=== PATIENT | female | born 1945 | race Caucasian/White ===

== ENCOUNTER → 2016-08-14 | Outpatient (CLI) | payer MEDICARE ==
--- NOTE | 2016-08-14 11:54 | MM ---
Reason for exam: history of breast cancer, mastectomy. Last mammogram was performed 1 year ago. History: Patient is postmenopausal, has history of breast cancer at age 56, and has history of other cancer at age 42. Family history of breast cancer in aunt. Excisional biopsy of the right breast, 2012. Malignant mastectomy of the left breast, October 02, 2001. Silicone gel implant in the left breast, 2001. Took antineoplastic for 5 years. Physical Findings: Nurse did not find any significant physical abnormalities on exam. MG 3D Diag Mammo W/Cad RT CC and MLO view(s) were taken of the right breast. Prior study comparison: August 11, 2015, right breast MG 3d diag mammo w/cad RT. August 04, 2014, right breast MG diagnostic mammo RT w CAD. The breast tissue is almost entirely fat. Previous mammotome biopsy in the right breast. No significant new findings when compared with previous films. These results were verbally communicated with the patient and result sheet given to the patient on 08/14/16. ASSESSMENT: Benign, BI-RAD 2 RECOMMENDATION: Follow-up diagnostic mammogram of the right breast in 1 year.
== END | disposition home or self-care (01) ==
LOC: RADMAMWWP 10:53
PROVIDERS: ATTEND Family Medicine
DX: Z08 Encounter for follow-up examination after completed treatment for malignant neoplasm (principal); Z85.3 Personal history of malignant neoplasm of breast
CPT/HCPCS: G0206; G0279

== ENCOUNTER → 2017-01-27 | Outpatient (CLI) | payer MEDICARE ==
--- NOTE | 2017-01-27 16:55 | US ---
EXAMINATION TYPE: US thyroid st tissue head/neck DATE OF EXAM: 01/27/2017 COMPARISON: 11/23/2015 CLINICAL HISTORY: E04.2 Nontoxic Multinodular Goiter. follow up exam GLAND SIZE: Right Lobe: 3.9 x 1.2 x 1.9 cm Overall Parenchyma: heterogenous Left Lobe: 4.5 x 1.4 x 1.8 cm Overall Parenchyma: heterogeneous Isthmus Thickness: 0.5 cm NODULES RIGHT: # of nodules measured on right: 0 LEFT: # of nodules measured on left: 0 ISTHMUS: # of nodules measured in the isthmus: 1 1. 0.6 X 0.5 x 0.4 cm hypoechoic cystic nodule at the right portion of isthmus with well-defined ma rgins. This nodule is wider than tall and shows no intranodular vascularity. Prior size: 0.7 x 0.4 x 0.5 cm Bilateral neck scanned, no evidence of lymphadenopathy. Heterogeneous lobes seen today with multiple subcentimeter areas, measured largest on isthmus IMPRESSION: There is some heterogeneity in the thyroid gland without a dominant mass there is a small cyst in the isthmus. No adverse change compared to old exam.
== END | disposition home or self-care (01) ==
LOC: RADUSWWP 16:13
PROVIDERS: ATTEND Internal Medicine Endocrinology, Diabetes & Metabolism
DX: E04.1 Nontoxic single thyroid nodule (principal)
CPT/HCPCS: 76536

== ENCOUNTER → 2017-03-27 | Outpatient (CLI) | payer MEDICARE ==
--- NOTE | 2017-03-27 11:22 | US ---
EXAMINATION TYPE: US kidneys/renal and bladder DATE OF EXAM: 03/27/2017 COMPARISON: NONE CLINICAL HISTORY: R94.4 Abnormal kidney function study. EXAM MEASUREMENTS: Right Kidney: 9.4 x 4.2 x 4.9 cm Left Kidney: 11.4 x 5.0 x 4.8 cm Post Void Residual Volume: 14.1 mL Right Kidney: hyperechoic (calcified) parallel vessel hardin noted mid lateral on image #[id number] Left Kidney: inferior pole complex cyst vs. clustered cysts = 2.3 x 2.2 x 2.5cm Bladder: wnl Bilateral Jets seen: Yes Normal Post Void Residual: Yes Bladder appears within normal limits. Right kidney appears unremarkable. Technologist notes a calcifi ed arterial vessel near right kidney. Cystic lesion lower pole level left kidney favor single 2.5 cm cyst with thin septations, 2 adjacent simple cysts felt less likely but not excluded. IMPRESSION: No hydronephrosis is evident bilaterally. Bosniak type II lesion lower pole level left kidney inciden tally noted.
== END ==
LOC: RADUSWWP 10:06
PROVIDERS: ATTEND Family Medicine
DX: R94.4 Abnormal results of kidney function studies (principal)
CPT/HCPCS: 76770

== ENCOUNTER → 2017-09-01 | Outpatient (CLI) | payer MEDICARE ==
--- NOTE | 2017-09-01 11:45 | MM ---
Reason for exam: additional evaluation requested from prior study. Last mammogram was performed 1 year and 1 month ago. History: Patient is postmenopausal, has history of breast cancer at age 56, and has history of other cancer at age 42. Family history of breast cancer in aunt. Excisional biopsy of the right breast, 2012. Malignant mastectomy of the left breast, October 02, 2001. Silicone gel implant in the left breast, 2001. Took antineoplastic for 5 years. Physical Findings: Nurse did not find any significant physical abnormalities on exam. MG Diagnostic Mammo RT w CAD CC and MLO view(s) were taken of the right breast. Prior study comparison: August 14, 2016, right breast MG 3d diag mammo w/cad RT. August 11, 2015, right breast MG 3d diag mammo w/cad RT. There are scattered fibroglandular densities. Previous mammotome biopsy in the right breast. There is chronic nodularity in the right breast. No significant new findings when compared with previous films. These results were verbally communicated with the patient and result sheet given to the patient on 09/01/17. ASSESSMENT: Benign, BI-RAD 2 RECOMMENDATION: Routine screening mammogram of the right breast in 1 year.
== END | disposition home or self-care (01) ==
LOC: RADMAMWWP 10:56
PROVIDERS: ATTEND Family Medicine
DX: Z12.31 Encounter for screening mammogram for malignant neoplasm of breast (principal); Z85.3 Personal history of malignant neoplasm of breast
CPT/HCPCS: 77065

== ENCOUNTER → 2017-10-24 | Outpatient (CLI) | payer MEDICARE ==
[2017-10-24 13:33] LABS: HCT 38.1 % (34.0-46.0); HGB 12.9 gm/dL (11.4-16.0); MCH 30.4 pg (25.0-35.0); MCHC 33.9 g/dL (31.0-37.0); MCV 89.6 fL (80.0-100.0); Mean Platelet Volume 8.2; Platelet Count 233 k/uL (150-450); RBC 4.25 m/uL (3.80-5.40); WBC 7.2 k/uL (3.8-10.6)
[2017-10-24 13:35] LABS: Appearance,Urine Clear (Clear); Bilirubin,Urine Negative (Negative); Blood,Urine Negative (Negative); Color,Urine Light Yellow; Glucose,Urine (UA) Negative (Negative); Hyaline Casts,Urine 1 /lpf (0-2); Ketones,Urine Negative (Negative); Leukocyte Esterase,Urine Small (Negative); Mucus,Urine Rare /hpf; Nitrite,Urine Negative (Negative); PH, Urine 5.5 (5.0-8.0); Protein,Urine Negative (Negative); RBC,Urine <1 /hpf (0-5); Specific Gravity,Urine 1.007 (1.001-1.035); Squamous Epithelial Cell,Urine 1 /hpf (0-4); Urobilinogen,Urine <2.0 mg/dL (<2.0); WBC,Urine 1 /hpf (0-5)
[2017-10-24 13:48] LABS: Albumin 3.8 g/dL (3.5-5.0); Calcium 9.3 mg/dL (8.4-10.2); Phosphorus 2.7 mg/dL (2.5-4.5); Potassium 3.6 mmol/L (3.5-5.1); Total Bilirubin 0.4 mg/dL (0.2-1.3)
== END | disposition home or self-care (01) ==
LOC: LABWHC1 13:17
PROVIDERS: ATTEND Internal Medicine Nephrology
DX: D64.9 Anemia, unspecified (principal); E83.39 Other disorders of phosphorus metabolism; N39.0 Urinary tract infection, site not specified
CPT/HCPCS: 36415; 80053; 81001; 84100; 85027

== ENCOUNTER → 2018-09-08 | Outpatient (CLI) | payer MEDICARE ==
--- NOTE | 2018-09-08 09:52 | MM ---
Reason for exam: additional evaluation requested from prior study. Last mammogram was performed 1 year ago. History: Patient is postmenopausal, has history of breast cancer at age 56, and has history of other cancer at age 42. Family history of breast cancer in aunt. Excisional biopsy of the right breast, 2012. Malignant mastectomy of the left breast, October 02, 2001. Silicone gel implant in the left breast, 2001. Took antineoplastic for 5 years. Physical Findings: Nurse did not find any significant physical abnormalities on exam. MG Diagnostic Mammo RT w CAD CC and MLO view(s) were taken of the right breast. Prior study comparison: September 01, 2017, right breast MG diagnostic mammo RT w CAD. August 14, 2016, right breast MG 3d diag mammo w/cad RT. There are scattered fibroglandular densities. Previous mammotome biopsy in the right breast. There is no discrete abnormality. These results were verbally communicated with the patient and result sheet given to the patient on 09/08/18. ASSESSMENT: Benign, BI-RAD 2 RECOMMENDATION: Follow-up diagnostic mammogram of the right breast in 1 year.
== END | disposition home or self-care (01) ==
LOC: RADMAMWWP 08:47
PROVIDERS: ATTEND Family Medicine
DX: Z08 Encounter for follow-up examination after completed treatment for malignant neoplasm (principal); Z85.3 Personal history of malignant neoplasm of breast
CPT/HCPCS: 77065

== ENCOUNTER → 2018-10-27 | Outpatient (CLI) | payer MEDICARE ==
--- NOTE | 2018-10-28 22:37 | BD ---
EXAMINATION TYPE: Axial Bone Density DATE OF EXAM: 10/27/2018 COMPARISON: 2013 CLINICAL HISTORY: screening Height: 5'1 Weight: 200 FRAX RISK QUESTIONS: adult fx rt forearm as an adult Secondary Osteoporosis: rt forearm as an adult RISK FACTORS HISTORY OF: Active: n Postmenopausal woman: y MEDICATIONS: Additional Medications: lisinopril, paroxetine, trazodone, hydrochlorothiazide Additional History: breast cancer 22 years ago, radiation EXAM MEASUREMENTS: Bone mineral densitometry was performed using the [employer] System. Bone mineral density as measured about the Lumbar spine is: ----- L1-L4(G/cm2): 1.030 T Score Values are as follows: ----- L2: -2.0 ----- L3: -0.6 ----- L4: -1.1 ----- L1-L4: -1.3 Bone mineral density has: Increased 4.9% since study of: 09/27/2013 Bone mineral density about the R hip (g/cm2): 0.934 Bone mineral density about the L hip (g/cm2): 0.949 T Score values are as follows: -----R Neck: -0.8 -----L Neck: -0.6 -----R Total: -1.0 -----L Total: -0.8 Bone mineral density has: Increased 0.6% since study of: 09/27/2013 IMPRESSION: Osteopenia (T Score between -2.5 and -1). There is slightly increased risk of fracture and the patient may be considered for treatment. Re-Screen 2-5 years. NOTE: T-SCORE=SD OF THE YOUNG ADULT MEAN.
== END | disposition home or self-care (01) ==
LOC: RADBDWWP 10:14
PROVIDERS: ATTEND Family Medicine
DX: Z13.820 Encounter for screening for osteoporosis (principal); M85.88 Other specified disorders of bone density and structure, other site
CPT/HCPCS: 77080

== ENCOUNTER → 2019-01-22 | Outpatient (CLI) | payer MEDICARE ==
--- NOTE | 2019-01-22 13:55 | US ---
EXAMINATION TYPE: US thyroid st tissue head/neck DATE OF EXAM: 01/22/2019 COMPARISON: NONE CLINICAL HISTORY: E04.2 NONTOXIC MULTINODULAR GOITER. GLAND SIZE: Right Lobe: 3.7 x 1.4 x 1.0 cm Overall Parenchyma: heterogenous Left Lobe: 3.5 x 0.9 x 1.3 cm Overall Parenchyma: heterogeneous Isthmus Thickness: 0.5 cm NODULES RIGHT: # of nodules measured on right: 0 LEFT: # of nodules measured on left: 0 ISTHMUS: # of nodules measured in the isthmus: 0 Bilateral neck scanned, no evidence of lymphadenopathy. Patient has a very large, very thick neck. Technically difficult, limited study. Subcentimeter cysts noted. IMPRESSION: 1. Bilateral subcentimeter nodules. No enlarged nodules are recorded.
[2019-01-22 14:46] LABS: T4, Free (Free Thyroxine) 0.87 ng/dL (0.78-2.19)
== END | disposition home or self-care (01) ==
LOC: RADUSWWP 12:56
PROVIDERS: ATTEND Internal Medicine Endocrinology, Diabetes & Metabolism
DX: E04.2 Nontoxic multinodular goiter (principal)
CPT/HCPCS: 76536; 84439; 84443

== ENCOUNTER 2019-01-27 19:18 | Inpatient (IN) | payer MEDICARE ==
[2019-01-27 20:30] LABS: Amphetamine Screen,Urine Not Detected (NotDetected); Barbiturate Screen,Urine Not Detected (NotDetected); Benzodiazepines Screen,Urine Not Detected (NotDetected); Cocaine Screen,Urine Not Detected (NotDetected); Methadone Screen, Urine Not Detected (NotDetected); Opiate Screen,Urine Not Detected (NotDetected); Phencyclidine Screen,Urine Not Detected (NotDetected); Tricyclic Antidepressant,Urine Not Detected (NotDetected); Urn Cannabinoid Scrn Not Detected (NotDetected)
[2019-01-27 20:31] LABS: Oxycodone Screen, Urine Not Detected (NotDetected)
[2019-01-27 20:59] LABS: Appearance,Urine Clear (Clear); Bacteria,Urine Rare /hpf; Bilirubin,Urine Negative (Negative); Blood,Urine Negative (Negative); Color,Urine Yellow; Glucose,Urine (UA) Negative (Negative); Hyaline Casts,Urine 4 /lpf (0-2); Ketones,Urine Negative (Negative); Leukocyte Esterase,Urine Small (Negative); Mucus,Urine Rare /hpf; Nitrite,Urine Negative (Negative); Protein,Urine Negative (Negative); RBC,Urine 1 /hpf (0-5); Specific Gravity,Urine 1.012 (1.001-1.035); Squamous Epithelial Cell,Urine 1 /hpf (0-4); Urobilinogen,Urine <2.0 mg/dL (<2.0); WBC,Urine 3 /hpf (0-5)
--- NOTE | 2019-01-27 21:28 | ED ---
General Adult HPI - General Chief complaint: Psychiatric Symptoms Stated complaint: Mental Health Time Seen by Provider: 01/27/19 19:36 Source: patient, RN notes reviewed, old records reviewed Limitations: altered mental status - History of Present Illness Initial comments: 73-year-old female patient with past medical history of developmental delay, psychiatric disorder presents to ED for what daughter believes is a manic episode for approximately 2 weeks. Patient reports that she has had flight of ideas, depression and suicidal ideations today. Denies any actions to hurt he rself or hurt any other people, that the plan hurt himself. Patient is not currently established with a psychiatrist, was pretty established with [facility], however they believe that she did not need any further therapy so her primary care provider has been prescribing Paxil and trazodone. Daughter reports the patient last had an episode like this proximal 9 years ago. She states that symptoms are identical. Systemic: Pt denies fatigue, fever/chills, rash. Pt denies weakness, night sweats, weight loss. Neuro: Pt denies headache, visual disturbances, syncope or pre-syncope. HEENT: Pt denies ocular discharge or irritation, otalgia, rhinorrhea, pharyngitis or notable lymphadenopathy. Cardiopulmonary: Pt denies chest pain, SOB, heart palpitations, dyspnea on exertion. Abdominal/GI: Pt denies abdominal pain, n/v/d. : Pt denies dysuria, burning w/ urination, frequency/urgency. Denies new onset urinary or bowel incontinence. MSK: Pt denies myalgia, loss of strength or function in extremities. Neuro: Pt denies new onset weakness, paresthesias. - Related Data Home Medications Medication Instructions Recorded Confirmed Aspirin EC [Ecotrin Low Dose] 81 mg PO DAILY 01/27/19 01/27/19 Calcium Carbonate [Calcium] 600 mg PO DAILY 01/27/19 01/27/19 Garlic 1 tab PO DAILY 01/27/19 01/27/19 Hydrochlorothiazide 25 mg PO DAILY 01/27/19 01/27/19 Lisinopril [Zestril] 40 mg PO DAILY 01/27/19 01/27/19 Jasper-3 Fatty Acids/Fish Oil [Fish 1 cap PO DAILY 01/27/19 01/27/19 Oil 1,000 mg Softgel] PARoxetine HCL 30 mg PO DAILY 01/27/19 01/27/19 Pravastatin Sodium [Pravachol] 10 mg PO DAILY 01/27/19 01/27/19 traZODone HCL 100 mg PO HS 01/27/19 01/27/19 Allergies Allergy/AdvReac Type Severity Reaction Status Date / Time No Known Allergies Allergy Verified 01/27/19 20:09 Review of Systems ROS Statement: Those systems with pertinent positive or pertinent negative responses have been documented in the HPI. ROS Other: All systems not noted in ROS Statement are negative. Past Medical History Past Medical History: Hyperlipidemia, Hypertension Additional Past Medical History / Comment(s): Psychological hx Past Surgical History: Hysterectomy Additional Past Surgical History / Comment(s): Masectomy left side Past Psychological History: Anxiety, Bipolar, Panic Disorder Smoking Status: Never smoker Past Alcohol Use History: None Reported Past Drug Use History: None Reported General Exam - General Exam Comments Initial Comments: Constitutional: NAD, AOX3, Pt has pleasant affect. HEENT: NC/AT, trachea midline, neck supple, no lymphadenopathy. Posterior pharynx non erythematous, without exudates. External ears appear normal, without discharge. Mucous membranes moist. Eyes PERRLA, EOM intact. There is no scleral icterus. No pallor noted. Cardiopulmonary: RRR, no murmurs, rubs or gallops, no JVD noted. Lungs CTAB in anterior and posterior vides. No peripheral edema. Abdominal exam: Abdomen soft and non-distended. Abdomen non-tender to palpation in all 4 quadrants. Bowel sounds active in LLQ. No hepatosplenomegaly. No ecchymosis Neuro: CN II-XII grossly intact. No nuchal rigidity. No raccon eyes, no oshea sign, no hemotympanum. No cervical spinal tenderness. MSK: No posterior calf tenderness bilaterally, homans sign negative bilaterally. Posterior tibialis and radial pulse +2 bilaterally. Sensation intact in upper and lower extremities. Full active ROM in upper and lower extremities, 5/5 stregnth. Limitations: altered mental status Course Vital Signs 01/27/19 19:31 Temperature 97.6 F Pulse Rate 98 Respiratory 17 Rate Blood Pressure 154/95 O2 Sat by Pulse 97 Oximetry Medical Decision Making - Medical Decision Making Patient evaluated by EPS and recommended for admission. Patient admitted to this facility. Case discussed with Dr. Cedeno. - Lab Data Lab Results 01/27/19 01/27/19 Range/Units 20:05 20:05 Urine Color Yellow Urine Appearance Clear (Clear) Urine pH 7.0 (5.0-8.0) Ur Specific Dewitt 1.012 (1.001-1.035) Urine Protein Negative (Negative) Urine Glucose (UA) Negative (Negative) Urine Ketones Negative (Negative) Urine Blood Negative (Negative) Urine Nitrite Negative (Negative) Urine Bilirubin Negative (Negative) Urine Urobilinogen <2.0 (<2.0) mg/dL Ur Leukocyte Esterase Small H (Negative) Urine RBC 1 (0-5) /hpf Urine WBC 3 (0-5) /hpf Ur Squamous Epith Cells 1 (0-4) /hpf Urine Bacteria Rare H (None) /hpf Hyaline Casts 4 H (0-2) /lpf Urine Mucus Rare H (None) /hpf Urine Opiates Screen Not Detected (NotDetected) Ur Oxycodone Screen Not Detected (NotDetected) Urine Methadone Screen Not Detected (NotDetected) Ur Propoxyphene Screen Not Detected (NotDetected) Ur Barbiturates Screen Not Detected (NotDetected) U Tricyclic Antidepress Not Detected (NotDetected) Ur Phencyclidine Scrn Not Detected (NotDetected) Ur Amphetamines Screen Not Detected (NotDetected) U Methamphetamines Scrn Not Detected (NotDetected) U Benzodiazepines Scrn Not Detected (NotDetected) Urine Cocaine Screen Not Detected (NotDetected) U Marijuana (THC) Screen Not Detected (NotDetected) Disposition Clinical Impression: Depression, Suicidal ideation Disposition: ADMITTED IP TO THIS [facility] Condition: Serious Is patient prescribed a controlled substance at d/c from ED?: No
[2019-01-27] MEDS ORDERED: ZIPRASIDONE 20 MG VIAL IM PRN (21:53)
[2019-01-27] MEDS ORDERED: MAG HYDROX/AL HYDROX/SIMETH 30 ML CUP PO PRN (21:53)
[2019-01-27] MEDS ORDERED: MAGNESIUM HYDROXIDE 2,400 MG/10 ML CUP PO PRN (21:53)
[2019-01-27] MEDS ORDERED: LORazepam 2 MG/ML INJ IM PRN (21:58)
[2019-01-27] MEDS: traZODone HCL 100 MG TAB PO SCH (22:30)
[2019-01-28 01:01] VITALS: BMI 36.3
[2019-01-28 07:59] LABS: Basophils % (A) 1 %; Eosinophils # (A) 0.3 k/uL (0-0.7); Eosinophils % (A) 5 %; HCT 38.6 % (34.0-46.0); HGB 12.1 gm/dL (11.4-16.0); Lymphocytes # (A) 1.3 k/uL (1.0-4.8); Lymphocytes % (A) 24 %; MCH 29.4 pg (25.0-35.0); MCHC 31.3 g/dL (31.0-37.0); MCV 93.8 fL (80.0-100.0); Mean Platelet Volume 7.9; Monocytes # (A) 0.4 k/uL (0-1.0); Monocytes % (A) 7 %; Neutrophils # (A) 3.3 k/uL (1.3-7.7); Neutrophils % (A) 60 %; Platelet Count 187 k/uL (150-450); RBC 4.11 m/uL (3.80-5.40); RDW 14.2 % (11.5-15.5); WBC 5.4 k/uL (3.8-10.6)
[2019-01-28 08:11] LABS: Albumin 3.6 g/dL (3.5-5.0); Calcium 9.9 mg/dL (8.4-10.2); Potassium 4.2 mmol/L (3.5-5.1); Total Bilirubin 0.4 mg/dL (0.2-1.3); Total Protein 6.5 g/dL (6.3-8.2)
[2019-01-28] MEDS ORDERED: NON-FORMULARY DRUG (Garlic [Garlic] 1 TAB) PO SCH (09:00)
[2019-01-28] MEDS ORDERED: NON-FORMULARY DRUG (Omega-3 Fatty Acids/Fish Oil [Fish Oil 1,000 Mg Softgel] 1 CAP) PO SCH (09:00)
[2019-01-28] MEDS: LISINOPRIL 20 MG TAB PO SCH (09:05)
[2019-01-28] MEDS: CALCIUM CARBONATE 500 MG CHEWABLE PO SCH (09:05)
[2019-01-28] MEDS: PARoxetine 10 MG TAB PO SCH (09:05)
[2019-01-28] MEDS: PRAVASTATIN SODIUM 20 MG TAB PO SCH (09:06)
[2019-01-28] MEDS: ASPIRIN 81 MG PO SCH (09:07)
[2019-01-28] MEDS: HYDROCHLOROTHIAZIDE 25 MG TAB PO SCH (09:07)
--- NOTE | 2019-01-28 14:50 | P.CON ---
Consult Note - . Assessment/Plan:: Reason for consultation medical management History of present illness This is a very pleasant 73-year-old female who is seen on the psychiatric unit for her H&P and for medical management. Patient the time examination is complaining of back pain which is going on for the past few months. When she is complaining of more bilateral flank pain. She otherwise does not complain of any chest pain or racing heart, no cough no shortness breath, no fever no chills, no headache, loss of vision or blurry vision, no abdominal pain, nausea vomiting, or diarrhea constipation, no tingling numbness on his extremities, no itch no rash. She otherwise does not complain of any urinary problems. 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 Drug abuse Review of systems All systems reviewed review is systems negative except for what they're were discussed about HPI Physical exam On exam, alert and oriented x3. She is having flight of ideas at the time of conversation jumping from one topic to another HEENT: Conjunctivae normal. eyes normal. NECK: No JVD. No thyroid enlargement. No LNs CARDIOVASCULAR: S1, S2 muffled. No murmur RESPIRATION: Breath sounds diminished in the bases. No rhonchi or crackles. No bronchial breathing. ABDOMEN: Soft, nontender but complaining of bilateral flank tenderness which he says is chronic for. No guarding. no masses palpable. No ascites, No hepatosplenomegaly.Bowel sounds heard. LEGS: No edema. no swelling NERVOUS SYSTEM: Cranial N 2-12 grossly normal. Moves all 4 limbs. No focal deficits. No sensory deficit. No signs of cerebellar dysfucntion. Skin: no ulcer no rash Joints: No active swelling. No inflammation. Lymphatic system. No LN neck axilla or groin. Impression - Bilateral flank pain probably [place] skeleton we'll rule out UTI - Patient currently admitted to the psych facility for suicidal ideation and depression - History of bipolar disorder - Hypertension - Hyperlipidemia Plan - The patient is admitted to psychiatric unit - We will order for UA to rule out UTI. The pain looks muscular skeletal in nature as she's been having this for few months at least she says. - We'll continue Tylenol when necessary for pain - We'll continue rest of the medications - Further care as per the psychiatric team - We'll continue to follow along with you - Please call us back if the UA results are positive so that the patient can be put on antibiotics
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
[2019-01-28 19:00] LABS: Hemoglobin A1C 5.8 % (4.0-6.0)
[2019-01-28] MEDS: traZODone HCL 100 MG TAB PO SCH (21:58)
[2019-01-29] MEDS: PARoxetine 10 MG TAB PO SCH (09:08)
[2019-01-29] MEDS: PRAVASTATIN SODIUM 20 MG TAB PO SCH (09:08)
[2019-01-29] MEDS: LISINOPRIL 20 MG TAB PO SCH (09:08)
[2019-01-29] MEDS: HYDROCHLOROTHIAZIDE 25 MG TAB PO SCH (09:08)
[2019-01-29] MEDS: ASPIRIN 81 MG PO SCH (09:08)
[2019-01-29] MEDS: CALCIUM CARBONATE 500 MG CHEWABLE PO SCH (09:08)
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
[2019-01-29] MEDS: LORazepam 1 MG TAB PO PRN (16:25)
[2019-01-29] MEDS: QUEtiapine 50 MG TAB PO SCH (20:19)
[2019-01-29] MEDS: traZODone HCL 100 MG TAB PO SCH (20:19)
[2019-01-30] MEDS: LISINOPRIL 20 MG TAB PO SCH (08:05)
[2019-01-30] MEDS: CALCIUM CARBONATE 500 MG CHEWABLE PO SCH (08:05)
[2019-01-30] MEDS: ASPIRIN 81 MG PO SCH (08:05)
[2019-01-30] MEDS: HYDROCHLOROTHIAZIDE 25 MG TAB PO SCH (08:05)
[2019-01-30] MEDS: PARoxetine 20 MG TAB PO SCH (08:06)
[2019-01-30] MEDS: PRAVASTATIN SODIUM 20 MG TAB PO SCH (08:06)
[2019-01-30] MEDS: ACETAMINOPHEN TAB 325 MG TAB PO PRN (12:38)
--- NOTE | 2019-01-30 15:10 | P.PN ---
Progress Note - Text Progress Note Date: 01/30/19 Interval history: Patient is seen in cross coverage today. She reports she slept well last night. She states that she has been having some diarrhea today which she has a history of periodically. She states that her mood is doing better. Mental status exam: She is alert and cooperative with the interview. Her speech is fluent, not rapid or pressured. Her thought processes are organized. She does report improved mood. She denies any thoughts of harm to self or others. She does not verbalize any hallucinations. She does not show any agitation. Plan: Patient will be maintained on current psychotropic medication regimen. Continue to monitor for any medication side effects and monitor her ongoing response to treatment. We'll continue to cover this patient to the weekend.
[2019-01-30] MEDS: traZODone HCL 100 MG TAB PO SCH (20:58)
[2019-01-30] MEDS: QUEtiapine 50 MG TAB PO SCH (20:58)
[2019-01-31 06:57] VITALS: RESP 18
[2019-01-31] MEDS: PARoxetine 20 MG TAB PO SCH (08:07)
[2019-01-31] MEDS: LISINOPRIL 20 MG TAB PO SCH (08:07)
[2019-01-31] MEDS: HYDROCHLOROTHIAZIDE 25 MG TAB PO SCH (08:07)
[2019-01-31] MEDS: ASPIRIN 81 MG PO SCH (08:07)
[2019-01-31] MEDS: PRAVASTATIN SODIUM 20 MG TAB PO SCH (08:08)
[2019-01-31] MEDS: CALCIUM CARBONATE 500 MG CHEWABLE PO SCH (08:08)
[2019-01-31] MEDS: LORazepam 1 MG TAB PO PRN (10:12)
--- NOTE | 2019-01-31 16:53 | P.PN ---
Progress Note - Text Progress Note Date: 01/31/19 Interval history: Patient is seen again in cross coverage today. She is agreeable to come to the interview room. She was found in her room sleeping. She reports that she slept very well last night. She does not verbalize any adverse psychotropic medication side effects. Mental status exam: She is alert and cooperative with the interview her speech is of fluent not rapid or pressured thought processes are organized her mood she describes is doing well. She denies any hallucinations. She does not verbalize any thoughts of harm to self or others. She does not show any current agitation. Plan: Patient will be maintained on current psychotropic medication regimen. Continue to monitor for any medication side effects monitor her ongoing response to treatment.
[2019-01-31] MEDS: ACETAMINOPHEN TAB 325 MG TAB PO PRN (18:12)
[2019-01-31] MEDS: QUEtiapine 50 MG TAB PO SCH (21:34)
[2019-01-31] MEDS: traZODone HCL 100 MG TAB PO SCH (21:34)
[2019-02-01 06:55] VITALS: TEMP 97.7
[2019-02-01] MEDS: HYDROCHLOROTHIAZIDE 25 MG TAB PO SCH (07:52)
[2019-02-01] MEDS: PRAVASTATIN SODIUM 20 MG TAB PO SCH (07:52)
[2019-02-01] MEDS: PARoxetine 20 MG TAB PO SCH (07:52)
[2019-02-01] MEDS: ASPIRIN 81 MG PO SCH (07:52)
[2019-02-01] MEDS: LISINOPRIL 20 MG TAB PO SCH (07:52)
[2019-02-01] MEDS: CALCIUM CARBONATE 500 MG CHEWABLE PO SCH (08:19)
--- NOTE | 2019-02-01 11:18 | P.PN ---
Progress Note - Text Interval history: The patient is found in group she follows me to an interview room. She reports her mood is good. She finds benefit in participating in the milieu. She has no questions or concerns regarding medication. She states that she's been sleeping well at night staff reports she is sleeping 6-7 hours a night. Appetite is stable. She reports having a good visit from family over the weekend. Social work states feedback from the family indicates the patient appears to be approximating baseline. The patient has no questions or concerns at this time regarding medications. Mental status exam: The patient is an overweight female appearing her stated age. She has adequate hygiene and fair grooming. She is dressed in her own clothing. She is observed ambulating appropriately from the [facility] to the interview room. She indicates her mood is good. She reports no suicidal or homicidal ideation intent or plan. She is reporting no auditory or visual hallucinations or any specific delusions. She states she is experiencing no "demons". She has concrete reasoning. Thought process is fairly linear. She can become circumstantial at times. Insight and judgment chronically altered by intellectual disability. She is easily directed she is demonstrating no agitated behavior. She demonstrates no verbal or physical aggressiveness. She demonstrates no involuntary repetitive movements. Plan: The patient appears to be clinically stabilizing. We will continue her medications as written. We will consider discharging her from the mental health unit tomorrow. Vital signs reviewed. She is encouraged to continue participating in the milieu.
[2019-02-01] MEDS: ACETAMINOPHEN TAB 325 MG TAB PO PRN (12:05)
[2019-02-01] MEDS: QUEtiapine 50 MG TAB PO SCH (20:10)
[2019-02-01] MEDS: traZODone HCL 100 MG TAB PO SCH (20:10)
[2019-02-02 06:47] VITALS: BP 109/53; PULSE 77
[2019-02-02] MEDS: PRAVASTATIN SODIUM 20 MG TAB PO SCH (07:58)
[2019-02-02] MEDS: PARoxetine 20 MG TAB PO SCH (07:58)
[2019-02-02] MEDS: ASPIRIN 81 MG PO SCH (07:58)
[2019-02-02] MEDS: LISINOPRIL 20 MG TAB PO SCH (07:58)
[2019-02-02] MEDS: HYDROCHLOROTHIAZIDE 25 MG TAB PO SCH (07:58)
[2019-02-02] MEDS: CALCIUM CARBONATE 500 MG CHEWABLE PO SCH (07:58)
[2019-02-02] MEDS: ACETAMINOPHEN TAB 325 MG TAB PO PRN (08:01)
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
== END 2019-02-02 12:12 | disposition home or self-care (01) | DRG 885 ==
LOC: EC 19:18 → 3MHU 21:31
PROVIDERS: ADMIT Psychiatry & Neurology Psychiatry; ATTEND Psychiatry & Neurology Psychiatry
DX: F33.3 Major depressive disorder, recurrent, severe with psychotic symptoms (principal); E66.3 Overweight; E78.5 Hyperlipidemia, unspecified; F41.0 Panic disorder [episodic paroxysmal anxiety]; F70 Mild intellectual disabilities; I10 Essential (primary) hypertension; R10.9 Unspecified abdominal pain; R19.7 Diarrhea, unspecified; Z68.36 Body mass index [BMI] 36.0-36.9, adult; Z79.82 Long term (current) use of aspirin; Z79.899 Other long term (current) drug therapy; Z90.12 Acquired absence of left breast and nipple; Z90.710 Acquired absence of both cervix and uterus
CPT/HCPCS: 80053; 80061; 80306; 81001; 82075; 83036; 84443; 85025; 99285

== ENCOUNTER → 2019-05-14 | Outpatient (CLI) | payer MEDICARE ==
--- NOTE | 2019-05-14 14:35 | XR ---
EXAMINATION TYPE: XR lumbosacral spine min 4V DATE OF EXAM: 05/14/2019 CLINICAL HISTORY: Low back pain TECHNIQUE: Frontal, lateral, and oblique images of the lumbar spine are obtained. COMPARISON: None FINDINGS: There are 5 lumbar type vertebral bodies identified. The lumbar spine shows satisfactory vertebral body heights without compression deformity. There is grade 1 anterolisthesis of L4 on L5. M ultilevel anterior osteophytes, facet arthropathy, intervertebral disc spacing narrowing is seen. T he oblique images appear within normal limits. The overlying soft tissue appears unremarkable. There is diffuse osseous demineralization. IMPRESSION: 1. No acute fracture is seen in the lumbar spine. 2. Mild multilevel degenerative disc disease of the lumbar spine with grade 1 anterolisthesis of L4 o n L5, likely on a degenerative basis.
== END | disposition home or self-care (01) ==
LOC: RADXRMAIN 13:22
PROVIDERS: ATTEND Family Medicine
DX: M51.36 Other intervertebral disc degeneration, lumbar region (principal); M43.16 Spondylolisthesis, lumbar region; G89.29 Other chronic pain; Z85.3 Personal history of malignant neoplasm of breast
CPT/HCPCS: 72110

== ENCOUNTER → 2019-08-04 | Outpatient (CLI) | payer MEDICARE | END | disposition home or self-care (01) | LOC: LABWHC1 11:42 | PROVIDERS: ATTEND Internal Medicine Endocrinology, Diabetes & Metabolism | DX: E04.2 Nontoxic multinodular goiter (principal) | CPT/HCPCS: 36415; 84443; 84480 ==

== ENCOUNTER 2019-11-22 17:45 | Inpatient (IN) | payer MEDICAID, MEDICARE ==
--- NOTE | 2019-11-22 18:11 | ED ---
Psych HPI - General Chief Complaint: Psychiatric Symptoms Stated Complaint: Mental Health Time Seen by Provider: 11/22/19 17:52 Source: patient, family, RN notes reviewed Mode of arrival: wheelchair - History of Present Illness Initial Comments: This is a 75-year-old female history of bipolar disorder who was brought in by her daughter because of an apparent manic episode. She's not been able get out the last several weeks to the social distance seen and restrictions placed by the government. She has not slept for the past 48 hours she's been hyperverbal and appears very manic. No reports of suicidal thought or ideation. She is also noted be hyperverbal per her daughter. MD Complaint: other - Related Data Home Medications Medication Instructions Recorded Confirmed Aspirin EC [Ecotrin Low Dose] 81 mg PO W/LUNCH 01/27/19 11/22/19 Calcium Carbonate [Calcium] 600 mg PO W/LUNCH 01/27/19 11/22/19 Garlic 1 tab PO W/LUNCH 01/27/19 11/22/19 Hydrochlorothiazide 25 mg PO DAILY 01/27/19 11/22/19 Lisinopril [Zestril] 40 mg PO DAILY 01/27/19 11/22/19 [place]-3 Fatty Acids/Fish Oil [Fish 1 cap PO W/LUNCH 01/27/19 11/22/19 Oil 1,000 mg Softgel] Pravastatin Sodium [Pravachol] 10 mg PO HS 01/27/19 11/22/19 Previous Rx's Medication Instructions Recorded PARoxetine [Paxil] 20 mg PO DAILY #30 tab 02/02/19 traZODone HCL 100 mg PO HS #30 tablet 02/02/19 Allergies Allergy/AdvReac Type Severity Reaction Status Date / Time No Known Allergies Allergy Verified 11/22/19 18:25 Review of Systems ROS Statement: Those systems with pertinent positive or pertinent negative responses have been documented in the HPI. ROS Other: All systems not noted in ROS Statement are negative. Past Medical History Past Medical History: Hyperlipidemia, Hypertension Additional Past Medical History / Comment(s): Psychological hx History of Any Multi-Drug Resistant Organisms: None Reported Past Surgical History: Hysterectomy Additional Past Surgical History / Comment(s): Mastectomy left side Past Anesthesia/Blood Transfusion Reactions: No Reported Reaction Past Psychological History: Anxiety, Bipolar, Panic Disorder Smoking Status: Former smoker Past Alcohol Use History: None Reported Past Drug Use History: None Reported General Exam - General Exam Comments Initial Comments: This is a well-developed well-nourished awake alert female who demonstrates a flight of ideas and is hyperverbal and does appear to be manic. Limitations: no limitations General appearance: alert, anxious Head exam: Present: atraumatic, normocephalic, normal inspection Eye exam: Present: normal appearance, PERRL, EOMI. Absent: scleral icterus, conjunctival injection, periorbital swelling ENT exam: Present: normal exam, mucous membranes moist Neck exam: Present: normal inspection. Absent: tenderness, meningismus, lymphadenopathy Respiratory exam: Present: normal lung sounds bilaterally. Absent: respiratory distress, wheezes, rales, rhonchi, stridor Cardiovascular Exam: Present: regular rate, normal rhythm, normal heart sounds. Absent: systolic murmur, diastolic murmur, rubs, gallop, clicks GI/Abdominal exam: Present: soft, normal bowel sounds. Absent: distended, tenderness, guarding, rebound, rigid Extremities exam: Present: normal inspection, full ROM, normal capillary refill. Absent: tenderness, pedal edema, joint swelling, calf tenderness Back exam: Present: normal inspection Neurological exam: Present: alert, oriented X3, CN II-XII intact. Absent: motor sensory deficit Psychiatric exam: Present: manic Skin exam: Present: warm, dry, intact, normal color. Absent: rash Course Vital Signs 11/22/19 17:47 Temperature 97.6 F Pulse Rate 100 Respiratory 18 Rate Blood Pressure 125/88 O2 Sat by Pulse 100 Oximetry Medical Decision Making - Medical Decision Making The patient was evaluated by psychiatric service and will be admitted for inpatient treatment of acute psychosis. - Lab Data Result diagrams: 11/22/19 18:00 11/22/19 18:00 Lab Results 11/22/19 11/22/19 Range/Units 18:00 18:00 WBC 11.1 H (3.8-10.6) k/uL RBC 4.66 (3.80-5.40) m/uL Hgb 14.1 (11.4-16.0) gm/dL Hct 44.0 (34.0-46.0) % MCV 94.4 (80.0-100.0) fL MCH 30.4 (25.0-35.0) pg MCHC 32.2 (31.0-37.0) g/dL RDW 13.8 (11.5-15.5) % Plt Count 252 (150-450) k/uL Neutrophils % 79 % Lymphocytes % 11 % Monocytes % 6 % Eosinophils % 2 % Basophils % 0 % Neutrophils # 8.7 H (1.3-7.7) k/uL Lymphocytes # 1.3 (1.0-4.8) k/uL Monocytes # 0.7 (0-1.0) k/uL Eosinophils # 0.2 (0-0.7) k/uL Basophils # 0.1 (0-0.2) k/uL Sodium 138 (137-145) mmol/L Potassium 4.1 (3.5-5.1) mmol/L Chloride 101 (98-107) mmol/L Carbon Dioxide 25 (22-30) mmol/L Anion Gap 12 mmol/L BUN 26 H (7-17) mg/dL Creatinine 1.20 H (0.52-1.04) mg/dL Est GFR (CKD-EPI)AfAm 52 (>60 ml/min/1.73 sqM) Est GFR (CKD-EPI)NonAf 45 (>60 ml/min/1.73 sqM) Glucose 141 H (74-99) mg/dL Calcium 9.8 (8.4-10.2) mg/dL Magnesium 2.0 (1.6-2.3) mg/dL Total Bilirubin 0.5 (0.2-1.3) mg/dL AST 38 H (14-36) U/L ALT 25 (4-34) U/L Alkaline Phosphatase 115 (38-126) U/L Total Protein 7.8 (6.3-8.2) g/dL Albumin 4.3 (3.5-5.0) g/dL Disposition Clinical Impression: Acute psychosis, [place] Disposition: TRANSFER TO PSYCH HOSP/UNIT Condition: Stable
[2019-11-22 18:36] LABS: Basophils # (A) 0.1 k/uL (0-0.2); Basophils % (A) 0 %; Eosinophils # (A) 0.2 k/uL (0-0.7); Eosinophils % (A) 2 %; HGB 14.1 gm/dL (11.4-16.0); Lymphocytes # (A) 1.3 k/uL (1.0-4.8); Lymphocytes % (A) 11 %; MCH 30.4 pg (25.0-35.0); MCHC 32.2 g/dL (31.0-37.0); MCV 94.4 fL (80.0-100.0); Mean Platelet Volume 9.1; Monocytes # (A) 0.7 k/uL (0-1.0); Monocytes % (A) 6 %; Neutrophils # (A) 8.7 k/uL (1.3-7.7); Neutrophils % (A) 79 %; Platelet Count 252 k/uL (150-450); RBC 4.66 m/uL (3.80-5.40); RDW 13.8 % (11.5-15.5); WBC 11.1 k/uL (3.8-10.6)
[2019-11-22 18:54] LABS: Albumin 4.3 g/dL (3.5-5.0); Calcium 9.8 mg/dL (8.4-10.2); Potassium 4.1 mmol/L (3.5-5.1); Total Bilirubin 0.5 mg/dL (0.2-1.3); Total Protein 7.8 g/dL (6.3-8.2)
[2019-11-22] MEDS ORDERED: LORazepam 1 MG TAB PO STA (19:39)
[2019-11-22] MEDS ORDERED: MAG HYDROX/AL HYDROX/SIMETH 30 ML CUP PO PRN (20:53)
[2019-11-22] MEDS ORDERED: MAGNESIUM HYDROXIDE 2,400 MG/10 ML CUP PO PRN (20:53)
[2019-11-22] MEDS ORDERED: ZIPRASIDONE 20 MG VIAL IM PRN (20:53)
[2019-11-22] MEDS ORDERED: QUEtiapine 50 MG TAB PO PRN (21:41)
[2019-11-22] MEDS: PRAVASTATIN SODIUM 20 MG TAB PO SCH (22:03)
[2019-11-23] MEDS: ACETAMINOPHEN TAB 325 MG TAB PO PRN (06:57)
[2019-11-23 07:32] LABS: Basophils % (A) 0 %; Eosinophils # (A) 0.3 k/uL (0-0.7); Eosinophils % (A) 3 %; HCT 42.6 % (34.0-46.0); HGB 13.5 gm/dL (11.4-16.0); Lymphocytes # (A) 1.5 k/uL (1.0-4.8); Lymphocytes % (A) 17 %; MCH 30.5 pg (25.0-35.0); MCHC 31.7 g/dL (31.0-37.0); MCV 96.4 fL (80.0-100.0); Mean Platelet Volume 9.4; Monocytes # (A) 0.5 k/uL (0-1.0); Monocytes % (A) 6 %; Neutrophils # (A) 6.4 k/uL (1.3-7.7); Neutrophils % (A) 71 %; Platelet Count 201 k/uL (150-450); RBC 4.42 m/uL (3.80-5.40); RDW 13.7 % (11.5-15.5)
[2019-11-23 07:48] LABS: Albumin 3.9 g/dL (3.5-5.0); Calcium 9.3 mg/dL (8.4-10.2); Total Bilirubin 0.6 mg/dL (0.2-1.3); Total Protein 7.3 g/dL (6.3-8.2)
[2019-11-23 07:54] LABS: Potassium 3.9 mmol/L (3.5-5.1)
[2019-11-23] MEDS ORDERED: PARoxetine 10 MG TAB PO SCH (09:00)
[2019-11-23] MEDS: HYDROCHLOROTHIAZIDE 25 MG TAB PO SCH (10:02)
[2019-11-23] MEDS: LISINOPRIL 20 MG TAB PO SCH (10:02)
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
[2019-11-23] MEDS ORDERED: NON FORMULARY DRUG (Omega-3 Fatty Acids/Fish Oil [Fish Oil 1,000 Mg Softgel] 1 CAP) PO SCH (12:30)
[2019-11-23] MEDS: CALCIUM CARBONATE 500 MG CHEWABLE PO SCH (12:32)
[2019-11-23] MEDS: ASPIRIN 81 MG PO SCH (12:32)
[2019-11-23] MEDS: ARIPiprazole 5 MG TAB PO SCH (12:32)
[2019-11-23 16:46] LABS: Hemoglobin A1C 5.2 % (4.0-6.0)
[2019-11-23] MEDS: LORazepam 1 MG TAB PO PRN (17:10)
[2019-11-23] MEDS ORDERED: QUEtiapine 25 MG TAB PO SCH (21:00)
[2019-11-23] MEDS: PRAVASTATIN SODIUM 20 MG TAB PO SCH (21:41)
--- NOTE | 2019-11-23 23:29 | P.CONS ---
History of Present Illness - History of Present Illness this is a pleasant 74 years old female with past medical history of hypertension and hyperlipidemia, anxiety and bipolar disorder.presents with signs symptoms of worsening bipolar disorder associated with psychosis. Medical consult has been requested for medical management. Patient denies chest pain, no dyspnea, no change in urine or bowel habits. No fever. glucose 135, 141. Review of Systems CONSTITUTIONAL: No fever, no malaise, no fatigue. HEENT: No recent visual problems or hearing problems. Denied any sore throat. CARDIOVASCULAR: No orthopnea, PND, no palpitations, no syncope. PULMONARY: No shortness of breath, no cough, no hemoptysis. GASTROINTESTINAL: No diarrhea, no nausea, no vomiting, no abdominal pain. Normoactive bowel sounds. NEUROLOGICAL: No headaches, no weakness, no numbness. HEMATOLOGICAL: Denies any bleeding or petechiae. GENITOURINARY: Denies any burning micturition, frequency, or urgency. MUSCULOSKELETAL/RHEUMATOLOGICAL: Denies any joint pain, swelling, or any muscle pain. ENDOCRINE: Denies any polyuria or polydipsia. Past Medical History Past Medical History: Hyperlipidemia, Hypertension Additional Past Medical History / Comment(s): Psychological hx History of Any Multi-Drug Resistant Organisms: None Reported Past Surgical History: Hysterectomy Additional Past Surgical History / Comment(s): Mastectomy left side Past Anesthesia/Blood Transfusion Reactions: No Reported Reaction Past Psychological History: Anxiety, Bipolar, Panic Disorder Smoking Status: Former smoker Past Alcohol Use History: None Reported Past Drug Use History: None Reported Medications and Allergies Home Medications Medication Instructions Recorded Confirmed Type Aspirin EC [Ecotrin Low Dose] 81 mg PO W/LUNCH 01/27/19 11/22/19 History Calcium Carbonate [Calcium] 600 mg PO W/LUNCH 01/27/19 11/22/19 History Garlic 1 tab PO W/LUNCH 01/27/19 11/22/19 History Hydrochlorothiazide 25 mg PO DAILY 01/27/19 11/22/19 History Lisinopril [Zestril] 40 mg PO DAILY 01/27/19 11/22/19 History [place]-3 Fatty Acids/Fish Oil [Fish 1 cap PO W/LUNCH 01/27/19 11/22/19 History Oil 1,000 mg Softgel] Pravastatin Sodium [Pravachol] 10 mg PO HS 01/27/19 11/22/19 History PARoxetine [Paxil] 20 mg PO DAILY #30 tab 02/02/19 11/22/19 Rx traZODone HCL 100 mg PO HS #30 tablet 02/02/19 11/22/19 Rx Allergies Allergy/AdvReac Type Severity Reaction Status Date / Time No Known Allergies Allergy Verified 11/22/19 18:25 Physical Exam Vitals: Vital Signs Temp Pulse Pulse Resp BP BP Pulse Ox 11/23/19 06:48 98.5 F 101 H 16 118/59 93 L 11/22/19 22:13 96.8 F L 106 H 18 117/76 11/22/19 17:47 97.6 F 100 18 125/88 100 Intake and Output 11/22/19 11/23/19 11/23/19 22:59 06:59 14:59 Other: Weight 97.522 kg GENERAL: The patient is alert and oriented x3, not in any acute distress. Well developed, well nourished. HEENT: Pupils are round and equally reacting to light. EOMI. No scleral icterus. No conjunctival pallor. Normocephalic, atraumatic. No pharyngeal erythema. No thyromegaly. CARDIOVASCULAR: S1 and S2 present. No murmurs, rubs, or gallops. PULMONARY: Chest is clear to auscultation, no wheezing or crackles. ABDOMEN: Soft, nontender, nondistended, normoactive bowel sounds. No palpable organomegaly. MUSCULOSKELETAL: No joint swelling or deformity. EXTREMITIES: No cyanosis, clubbing, or pedal edema. NEUROLOGICAL: Gross neurological examination did not reveal any focal deficits. SKIN: No rashes. No petechiae Results CBC & Chem 7: 11/23/19 07:15 11/23/19 07:15 Labs: Abnormal Lab Results - Last 24 Hours (Table) 11/22/19 11/22/19 11/23/19 Range/Units 18:00 18:00 07:15 WBC 11.1 H (3.8-10.6) k/uL Neutrophils # 8.7 H (1.3-7.7) k/uL BUN 26 H 27 H (7-17) mg/dL Creatinine 1.20 H 1.07 H (0.52-1.04) mg/dL Glucose 141 H 135 H (74-99) mg/dL AST 38 H (14-36) U/L Triglycerides 179 H (<150) mg/dL Assessment and Plan Assessment: hypertension, continue same medication Hyperlipidemia, continue same medication Mild leukocytosis, mostly reactive improved Bipolar disorder with psychosis and other psychiatric illnesses, management as per psych team Patient was instructed to follow up with her primary care doctor in 1 week and she agrees Thank you for consulting us and we will see the patient on as needed basis. Please feel free to contact us for any further question or clarification
[2019-11-24] MEDS: ARIPiprazole 5 MG TAB PO SCH (08:49)
[2019-11-24] MEDS: LISINOPRIL 20 MG TAB PO SCH (08:50)
[2019-11-24] MEDS: HYDROCHLOROTHIAZIDE 25 MG TAB PO SCH (08:50)
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
[2019-11-24] MEDS: CALCIUM CARBONATE 500 MG CHEWABLE PO SCH (11:57)
[2019-11-24] MEDS: ASPIRIN 81 MG PO SCH (11:58)
[2019-11-24] MEDS: PRAVASTATIN SODIUM 20 MG TAB PO SCH (20:17)
[2019-11-24] MEDS: LORazepam 1 MG TAB PO PRN (21:51)
[2019-11-25] MEDS: LISINOPRIL 20 MG TAB PO SCH (08:03)
[2019-11-25] MEDS: HYDROCHLOROTHIAZIDE 25 MG TAB PO SCH (08:03)
[2019-11-25] MEDS ORDERED: ARIPiprazole 10 MG TAB PO SCH (09:00)
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
[2019-11-25] MEDS: ASPIRIN 81 MG PO SCH (11:56)
[2019-11-25] MEDS: CALCIUM CARBONATE 500 MG CHEWABLE PO SCH (11:56)
[2019-11-25] MEDS: PRAVASTATIN SODIUM 20 MG TAB PO SCH (21:32)
[2019-11-26] MEDS: HYDROCHLOROTHIAZIDE 25 MG TAB PO SCH (08:21)
[2019-11-26] MEDS: ARIPiprazole 15 MG TAB PO SCH (08:21)
[2019-11-26] MEDS: LISINOPRIL 20 MG TAB PO SCH (08:21)
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
[2019-11-26] MEDS: ASPIRIN 81 MG PO SCH (13:40)
[2019-11-26] MEDS: CALCIUM CARBONATE 500 MG CHEWABLE PO SCH (13:40)
[2019-11-26] MEDS: PRAVASTATIN SODIUM 20 MG TAB PO SCH (20:41)
[2019-11-27] MEDS: ASPIRIN 81 MG PO SCH (07:48)
[2019-11-27] MEDS: HYDROCHLOROTHIAZIDE 25 MG TAB PO SCH (07:48)
[2019-11-27] MEDS: LISINOPRIL 20 MG TAB PO SCH (07:48)
[2019-11-27] MEDS: CALCIUM CARBONATE 500 MG CHEWABLE PO SCH (07:48)
[2019-11-27] MEDS: ARIPiprazole 15 MG TAB PO SCH (07:48)
--- NOTE | 2019-11-27 10:52 | P.PN ---
Progress Note - Text Interval history: The patient is found in the hallway she follows me to an interview room she indicates her mood is good she feels happy here on the mental health unit she feels safe. She was participating in group. Appetite stable she sleeping at night. She states that she talks to her daughter Tracy and that is going well. She continues to feel persecuted by her daughter Brandi. She continues to state that she can go home to her own home. Mental status exam: The patient's an overweight female appearing her stated age she has short hair hygiene grooming adequate she is dressed in hospital gowns. She does have a hearing deficit. She reports no suicidal or homicidal ideation intent or plan she is reporting no auditory or visual hallucinations. She continues to report a delusional thought content specifically persecutory thoughts related to her daughter Brandi. She demonstrates no verbal or physical aggressiveness she demonstrates no involuntary repetitive movements. Insight and judgment are limited by intellectual impairment. Plan: The patient will continue on her current psychotropic medication. We will monitor her for safety. Vital signs are reviewed. We will continue to encourage for full participation in the milieu.
[2019-11-27 17:41] LABS: Appearance,Urine Clear (Clear); Bacteria,Urine Rare /hpf; Bilirubin,Urine Negative (Negative); Blood,Urine Negative (Negative); Color,Urine Yellow; Glucose,Urine (UA) Negative (Negative); Ketones,Urine Negative (Negative); Leukocyte Esterase,Urine Large (Negative); Mucus,Urine Rare /hpf; Nitrite,Urine Negative (Negative); PH, Urine 5.5 (5.0-8.0); Protein,Urine Negative (Negative); Specific Gravity,Urine 1.017 (1.001-1.035); Squamous Epithelial Cell,Urine 2 /hpf (0-4); Urobilinogen,Urine <2.0 mg/dL (<2.0); WBC,Urine 17 /hpf (0-5)
[2019-11-27 17:53] LABS: Amphetamine Screen,Urine Not Detected (NotDetected); Barbiturate Screen,Urine Not Detected (NotDetected); Benzodiazepines Screen,Urine Not Detected (NotDetected); Cocaine Screen,Urine Not Detected (NotDetected); Methadone Screen, Urine Not Detected (NotDetected); Opiate Screen,Urine Not Detected (NotDetected); Oxycodone Screen, Urine Not Detected (NotDetected); Phencyclidine Screen,Urine Not Detected (NotDetected); Tricyclic Antidepressant,Urine Not Detected (NotDetected); Urn Cannabinoid Scrn Not Detected (NotDetected)
[2019-11-27] MEDS: PRAVASTATIN SODIUM 20 MG TAB PO SCH (21:23)
[2019-11-28] MEDS: ARIPiprazole 15 MG TAB PO SCH (08:18)
[2019-11-28] MEDS: LISINOPRIL 20 MG TAB PO SCH (08:19)
[2019-11-28] MEDS: HYDROCHLOROTHIAZIDE 25 MG TAB PO SCH (08:19)
--- NOTE | 2019-11-28 12:00 | P.PN ---
Progress Note - Text Interval history: The patient's found in the hallway she follows me to an interview room. She indicates her mood is good. She is doing well on the mental health unit she is making efforts to socialize she is attending groups. She continues to be troubled by thoughts pertaining to her daughter Brandi. The patient became startled when I mentioned that name and requested that I not say that daughter's name again. The patient is under the belief that she will reside with Tracy her guardian. The patient reportedly slept 8 hours last evening appetite is stable. Mental status exam: The patient is an overweight female appearing her stated age she is dressed in hospital gowns. Eye contact is appropriate speech is fluent spontaneous nonpressured she reports that her mood is good affect is content until we discussed her daughter Brandi. She reports no suicidal or homicidal ideation intent or plan she is endorsing no auditory or visual hallucinations. Again she continues to have persecutory thoughts related to her daughter Brandi. Insight and judgment chronically limited due to intellectual disability. She demonstrates no verbal or physical aggressiveness she demonstrates no involuntary repetitive movements. Plan: The patient will continue on the medication as written we will monitor her for safety. We will have social work contact the patient's guardian to discuss the patient's progress in the discharge planning. Vital signs reviewed. She is encouraged to continue participating in the milieu. We will continue to monitor her for acute safety risk.
[2019-11-28] MEDS: CALCIUM CARBONATE 500 MG CHEWABLE PO SCH (12:06)
[2019-11-28] MEDS: ASPIRIN 81 MG PO SCH (12:06)
[2019-11-28] MEDS: PRAVASTATIN SODIUM 20 MG TAB PO SCH (20:53)
[2019-11-29] MEDS: ACETAMINOPHEN TAB 325 MG TAB PO PRN ×2 (02:23→12:09)
[2019-11-29] MEDS: LISINOPRIL 20 MG TAB PO SCH (08:28)
[2019-11-29] MEDS: ARIPiprazole 15 MG TAB PO SCH (08:28)
[2019-11-29] MEDS: HYDROCHLOROTHIAZIDE 25 MG TAB PO SCH (08:28)
--- NOTE | 2019-11-29 10:49 | P.PN ---
Progress Note - Text Interval history: The patient is found in the hallway she follows me to an interview room. She indicates her mood is great. She states that she is doing better and is stabilizing. She reports that she is happy that she is making friends. Social work has been in contact with the patient's daughter Tracy it appears that she may be able to stay with her temporarily. The patient's been inadequately appetite stable. She has been appropriate he socializing and attending groups. Mental status exam: The patient is alert she is dressed in hospital gowns eye contact is appropriate speech is fluent and spontaneous nonpressured. She indicates her mood is improving she is reporting no suicidal or homicidal ideation intent or plan. She is reporting no auditory or visual hallucinations. She states "the bad thoughts are gone". She demonstrates no verbal or physical aggressiveness she demonstrates no involuntary repetitive movements. Insight and judgment appear to be improving. Intellectually she does have a chronic deficit. Plan: The patient will continue on her current psychotropic medications. We will monitor her for safety and encourage full participation in the milieu. Social work will assist the patient in contacting her daughter Tracy. We will consider discharging next 1-2 days.
[2019-11-29] MEDS: ASPIRIN 81 MG PO SCH (12:09)
[2019-11-29] MEDS: CALCIUM CARBONATE 500 MG CHEWABLE PO SCH (12:09)
[2019-11-29] MEDS: PRAVASTATIN SODIUM 20 MG TAB PO SCH (20:11)
[2019-11-30 06:43] VITALS: RESP 16
[2019-11-30] MEDS: HYDROCHLOROTHIAZIDE 25 MG TAB PO SCH (08:18)
[2019-11-30] MEDS: ARIPiprazole 15 MG TAB PO SCH (08:18)
[2019-11-30] MEDS: LISINOPRIL 20 MG TAB PO SCH (08:18)
[2019-11-30 08:40] VITALS: BMI 35.5
--- NOTE | 2019-11-30 10:52 | P.PN ---
Progress Note - Text Interval history: The patient is found in the [facility] she follows me to an interview room. She indicates her mood is good. She states that she did have a phone discussion with both daughters. She feels that she could return living with Brandi again. Social work notes were reviewed. Her daughter was concerned about some continued delusional thought and requested that we plan for discharge mid week. The patient continues to sleep adequately at night appetite is stable she continues to appropriately attend groups. Mental status exam: The patient is alert she is dressed in hospital gowns eye contact is appropriate speech is fluent spontaneous nonpressured. Affect is bright and congruent to reported mood. She is reporting no suicidal ideation intent or plan she reports no auditory or visual hallucinations or any specific delusions. She demonstrates no verbal or physical aggressiveness. She demonstrates no involuntary repetitive movements. Insight and judgment chronically limited due to intellectual disability. Plan: The patient will continue on her current psychotropic medication. She appears to be clinically stabilizing we will consider discharge in the next 1-2 days. She is encouraged to continue participating in the milieu. Vital signs reviewed.
[2019-11-30] MEDS: CALCIUM CARBONATE 500 MG CHEWABLE PO SCH (13:14)
[2019-11-30] MEDS: ASPIRIN 81 MG PO SCH (13:14)
[2019-11-30] MEDS: PRAVASTATIN SODIUM 20 MG TAB PO SCH (19:38)
[2019-11-30] MEDS: ACETAMINOPHEN TAB 325 MG TAB PO PRN (19:38)
[2019-11-30 22:18] VITALS: TEMP 98.4
[2019-12-01] MEDS: HYDROCHLOROTHIAZIDE 25 MG TAB PO SCH (07:54)
[2019-12-01] MEDS: ARIPiprazole 15 MG TAB PO SCH (07:54)
[2019-12-01] MEDS: LISINOPRIL 20 MG TAB PO SCH (07:55)
[2019-12-01 07:56] VITALS: BP 156/73; PULSE 89
--- NOTE | 2019-12-01 09:46 | P.DS ---
Providers Date of admission: 11/22/19 20:47 Expected date of discharge: 12/01/19 Attending physician: John Ortiz Consults: 11/22/19 20:53 Consult Physician Routine Consulting Provider: Jody Coleman Consult Reason/Comments: medical management Do you want consulting provider notified?: Yes, Notify in am Primary care physician: Cookie Gupta - Discharge Diagnosis(es) (1) Severe manic bipolar 1 disorder with psychotic behavior Current Visit: Yes Status: Acute Priority: High (2) Intellectual disability Current Visit: Yes Status: Acute Hospital Course: Brief summary of admission note: This patient is a 74-year-old single female who was brought to the emergency room for symptoms of goldy and psychosis. The patient was noted to demonstrate nonstop talking and demonstrating persecutory thoughts. Family members felt that the patient hadn't slept in 48 hours. The patient describes several persecutory thoughts related to her daughter Brandi. The patient does have a history of intellectual disability. For full details please refer to my psychiatric evaluation dated 11/23/2019. Summary of hospital course: The patient was admitted to the mental health unit voluntarily. We reviewed her treatment options. He was started on Abilify and the dosage was titrated to 15 mg daily. During the course of the admission the patient demonstrated progressive improvement of symptoms. For several days she was focused on her daughter Brandi as being a central antagonist. Those thoughts have resolved and she is now willing to return home residing with Brandi. Her daughter Tracy who is her legal guardian was involved in care. I spoke with Tracy via phone and social work has several times as well. The patient was seen by internal medicine for routine history and physical exam area social work completed a psychosocial assessment. The patient attended groups she demonstrated no agitated behavior. She has been pleasant cooperative and her symptoms have significantly improved. Mental status exam: The patient is an overweight female appearing her stated age. She is dressed in her own clothing hygiene grooming fair. Eye contact is appropriate. She does have a significant hearing deficit but is still able to effectively communicate. She indicates her mood is very good. Affect is euthymic. She reports no hopelessness thinking no suicidal ideation intent or plan. She is reporting no auditory or visual hallucinations or any specific delusions currently. She is demonstrating no objective evidence of psychosis. There may be some residual delusional thought present but those symptoms are significantly improved. She demonstrates no verbal or physical aggressiveness she demonstrates no involuntary repetitive movements. She demonstrates future oriented thinking. Speech is fluent spontaneous nonpressured she demonstrates no tangential thinking loose associations or flight of ideas. Impressions 1. Bipolar 1 disorder most recent manic with psychosis, intellectual disability Plan: The patient will be discharged mental health unit today to return to her home with her daughter Brandi. Social work will arrange the patient's outpatient mental health follow-up. The patient will continue on Abilify 15 mg daily. She uses no alcohol marijuana or illicit drugs. At this time there is no imminent safety risk she is appropriate for transition back to outpatient care. She is instructed to return to the hospital if any acute safety concerns. Patient Condition at Discharge: Stable Plan - Discharge Summary Discharge Rx Participant: No New Discharge Prescriptions: New ARIPiprazole [Abilify] 15 mg PO DAILY #30 tab Continue Pravastatin Sodium [Pravachol] 10 mg PO HS [place]-3 Fatty Acids/Fish Oil [Fish Oil 1,000 mg Softgel] 1 cap PO W/LUNCH Lisinopril [Zestril] 40 mg PO DAILY Hydrochlorothiazide 25 mg PO DAILY Calcium Carbonate [Calcium] 600 mg PO W/LUNCH Aspirin EC [Ecotrin Low Dose] 81 mg PO W/LUNCH Garlic 1 tab PO W/LUNCH Discontinued PARoxetine [Paxil] 20 mg PO DAILY #30 tab traZODone HCL 100 mg PO HS #30 tablet Discharge Medication List Aspirin EC [Ecotrin Low Dose] 81 mg PO W/LUNCH 01/27/19 [History] Calcium Carbonate [Calcium] 600 mg PO W/LUNCH 01/27/19 [History] Garlic 1 tab PO W/LUNCH 01/27/19 [History] Hydrochlorothiazide 25 mg PO DAILY 01/27/19 [History] Lisinopril [Zestril] 40 mg PO DAILY 01/27/19 [History] [place]-3 Fatty Acids/Fish Oil [Fish Oil 1,000 mg Softgel] 1 cap PO W/LUNCH 01/27/19 [History] Pravastatin Sodium [Pravachol] 10 mg PO HS 01/27/19 [History] ARIPiprazole [Abilify] 15 mg PO DAILY #30 tab 12/01/19 [Rx] Follow up Appointment(s)/Referral(s): [facility] [employer] [facility] [Outside] - 12/09/19 12:00 pm (Brayan Navarro) Cookie Gupta MD [Primary Care Provider] - 1-2 days Activity/Diet/Wound Care/Special Instructions: Activity and diet as tolerated. Avoid the use of street drugs and alcohol. Take all medications as prescribed. When you are in need of refills on your medications please contact your medical provider and/or outpatient psychiatrist to have this done. Please go to scheduled outpatient appointment for aftercare treatment. If symptoms return or become worse, call the crisis line at and/or go to the nearest emergency room for evaluation.
== END 2019-12-01 11:55 | disposition home or self-care (01) | DRG 885 ==
LOC: EC 17:45 → EEVIPCON 17:45 → 3MHU 20:47
PROVIDERS: ADMIT Psychiatry & Neurology Psychiatry; ATTEND Psychiatry & Neurology Psychiatry
DX: F31.2 Bipolar disorder, current episode manic severe with psychotic features (principal); E78.5 Hyperlipidemia, unspecified; I10 Essential (primary) hypertension; F41.0 Panic disorder [episodic paroxysmal anxiety]; H91.90 Unspecified hearing loss, unspecified ear; F79 Unspecified intellectual disabilities; F41.9 Anxiety disorder, unspecified; E66.3 Overweight; M41.9 Scoliosis, unspecified; Z90.12 Acquired absence of left breast and nipple; Z87.891 Personal history of nicotine dependence; Z85.3 Personal history of malignant neoplasm of breast; Z79.899 Other long term (current) drug therapy; Z90.710 Acquired absence of both cervix and uterus; Z68.35 Body mass index [BMI] 35.0-35.9, adult
CPT/HCPCS: 36415; 80053; 80061; 80306; 81001; 82075; 83036; 83735; 84443; 85025; 99285

== ENCOUNTER 2019-12-28 14:39 | Emergency (ER) | payer MEDICARE ==
[2019-12-28 14:45] VITALS: RESP 18
[2019-12-28] MEDS ORDERED: SODIUM CHLORIDE 0.9% 1,000 ML IV STA ×2 (15:09)
--- NOTE | 2019-12-28 15:26 | ED ---
General Adult HPI - General Source: patient, RN notes reviewed, old records reviewed Mode of arrival: wheelchair Limitations: no limitations <Princess Lujan - Last Filed: 12/31/19 16:30> <Nancy Snyder - Last Filed: 01/03/20 01:09> - General Chief complaint: Shortness of Breath Stated complaint: Diff Breathing Time Seen by Provider: 12/28/19 14:47 - History of Present Illness Initial comments: Patient is a 74-year-old female with a history of anxiety and recent psychotropic medication changes presents emergency Department today with complaints of difficulty in breathing and chest pain for the past 3 days. P dahiana states that she has had some heart racing episodes. She does question if this is related to anxiety. She was brought to the emergency department by her friend, daughters will be on her way. She states she's had no coughing. Denies any fevers or chills. (Princess Lujan) - Related Data Home Medications Medication Instructions Recorded Confirmed Aspirin EC [Ecotrin Low Dose] 81 mg PO W/LUNCH 01/27/19 12/28/19 Calcium Carbonate [Calcium] 600 mg PO W/LUNCH 01/27/19 12/28/19 Garlic 1 tab PO W/LUNCH 01/27/19 12/28/19 Hydrochlorothiazide 25 mg PO DAILY 01/27/19 12/28/19 Lisinopril [Zestril] 40 mg PO DAILY 01/27/19 12/28/19 [place]-3 Fatty Acids/Fish Oil [Fish 1 cap PO W/LUNCH 01/27/19 12/28/19 Oil 1,000 mg Softgel] Pravastatin Sodium [Pravachol] 10 mg PO HS 01/27/19 12/28/19 Previous Rx's Medication Instructions Recorded ARIPiprazole [Abilify] 15 mg PO DAILY #30 tab 12/01/19 Allergies Allergy/AdvReac Type Severity Reaction Status Date / Time No Known Allergies Allergy Verified 12/28/19 15:48 Review of Systems ROS Other: All systems not noted in ROS Statement are negative. <Princess Lujan - Last Filed: 12/31/19 16:30> ROS Other: All systems not noted in ROS Statement are negative. <Nancy Snyder - Last Filed: 06/22/20 01:09> ROS Statement: Those systems with pertinent positive or pertinent negative responses have been documented in the HPI. Past Medical History Past Medical History: Hyperlipidemia, Hypertension Additional Past Medical History / Comment(s): Psychological hx History of Any Multi-Drug Resistant Organisms: None Reported Past Surgical History: Hysterectomy Additional Past Surgical History / Comment(s): Mastectomy left side Past Anesthesia/Blood Transfusion Reactions: No Reported Reaction Past Psychological History: Anxiety, Bipolar, Panic Disorder Smoking Status: Former smoker Past Alcohol Use History: None Reported Past Drug Use History: None Reported <Princess Lujan - Last Filed: 12/31/19 16:30> General Exam Limitations: no limitations General appearance: alert, in no apparent distress Head exam: Present: atraumatic, normocephalic, normal inspection Eye exam: Present: normal appearance, PERRL, EOMI. Absent: scleral icterus, conjunctival injection, periorbital swelling ENT exam: Present: normal exam, mucous membranes moist Neck exam: Present: normal inspection. Absent: tenderness, meningismus, lymphadenopathy Respiratory exam: Present: normal lung sounds bilaterally. Absent: respiratory distress, wheezes, rales, rhonchi, stridor Cardiovascular Exam: Present: regular rate, normal rhythm, normal heart sounds. Absent: systolic murmur, diastolic murmur, rubs, gallop, clicks GI/Abdominal exam: Present: soft, normal bowel sounds. Absent: distended, tenderness, guarding, rebound, rigid Extremities exam: Present: normal inspection, full ROM, normal capillary refill. Absent: tenderness, pedal edema, joint swelling, calf tenderness Back exam: Present: normal inspection Neurological exam: Present: alert, oriented X3, CN II-XII intact Psychiatric exam: Present: normal affect, normal mood Skin exam: Present: warm, dry, intact, normal color. Absent: rash <Princess Lujan - Last Filed: 12/31/19 16:30> - General Exam Comments Initial Comments: 74 year old anxious female. (Princess Lujan) Course Vital Signs 12/28/19 12/28/19 12/28/19 14:41 17:24 19:05 Temperature 97.7 F 97.6 F 98.1 F Pulse Rate 100 90 88 Respiratory 18 18 18 Rate Blood Pressure 177/83 160/82 145/60 O2 Sat by Pulse 100 99 98 Oximetry EKG Findings - EKG Comments: EKG Findings:: EKG performed at 1507 shows normal sinus rhythm left axis deviation. Left ventricular hypertrophy with QRS widening. Abnormal EKG. Ventricular rate of 88 bpm. Was 178 ms. She jain is 1:30 milliseconds. QT QTc is 374/452 ms. <Princess Lujan - Last Filed: 12/31/19 16:30> Medical Decision Making - Lab Data Result diagrams: 12/28/19 15:15 12/28/19 15:15 - Radiology Data Radiology results: report reviewed <Princess Lujan - Last Filed: 12/31/19 16:30> - Lab Data Result diagrams: 12/28/19 15:15 12/28/19 15:15 <Nancy Snyder - Last Filed: 01/03/20 01:09> - Medical Decision Making 74 year old female presents with anxiety, shortness of breath and chest pain. She recently changed her psych medication. PAtient at this time has stable EKG, normal troponin, and normla labs except positive d-dimer. CT scan completed and negative for PE. She was reevaluated and resting in bed and states she wants to go home. She discussed anxiety and lmedication side effects with EPS nurse and daugter was present as well. Discussed follow up with PCP and with psychiatrist. (MattPrincess vargas) I was available for consultation in the emergency department. The history and physical exam were done by the midlevel provider. I was consulted for this patients care. I reviewed the case with the midlevel provider and based on their presentation of the patient, I agree with the assessment, medical decision making and plan of care as documented. Chart was dictated using Pipedrive dictation software. Attempts were made to correct any dictation errors however some typographical errors may persist. Patient was seen during a national state of emergency due to the Covid-19 pandemic. (Nancy Snyder) - Lab Data Lab Results 12/28/19 12/28/19 12/28/19 Range/Units 15:15 15:15 15:15 WBC 7.7 (3.8-10.6) k/uL RBC 4.74 (3.80-5.40) m/uL Hgb 14.4 (11.4-16.0) gm/dL Hct 44.1 (34.0-46.0) % MCV 92.9 (80.0-100.0) fL MCH 30.3 (25.0-35.0) pg MCHC 32.6 (31.0-37.0) g/dL RDW 12.8 (11.5-15.5) % Plt Count 220 (150-450) k/uL Neutrophils % 75 % Lymphocytes % 15 % Monocytes % 5 % Eosinophils % 2 % Basophils % 0 % Neutrophils # 5.8 (1.3-7.7) k/uL Lymphocytes # 1.2 (1.0-4.8) k/uL Monocytes # 0.4 (0-1.0) k/uL Eosinophils # 0.1 (0-0.7) k/uL Basophils # 0.0 (0-0.2) k/uL PT 9.5 (9.0-12.0) sec INR 0.9 (<1.2) APTT 23.9 (22.0-30.0) sec D-Dimer 0.90 H (<0.60) mg/L FEU Sodium 138 (137-145) mmol/L Potassium 3.7 (3.5-5.1) mmol/L Chloride 103 (98-107) mmol/L Carbon Dioxide 27 (22-30) mmol/L Anion Gap 8 mmol/L BUN 23 H (7-17) mg/dL Creatinine 0.91 (0.52-1.04) mg/dL Est GFR (CKD-EPI)AfAm 73 (>60 ml/min/1.73 sqM) Est GFR (CKD-EPI)NonAf 63 (>60 ml/min/1.73 sqM) Glucose 133 H (74-99) mg/dL Plasma Lactic Acid Yahir (0.7-2.0) mmol/L Calcium 10.3 H (8.4-10.2) mg/dL Magnesium 2.2 (1.6-2.3) mg/dL Total Bilirubin 0.3 (0.2-1.3) mg/dL AST 30 (14-36) U/L ALT 34 (4-34) U/L Alkaline Phosphatase 101 (38-126) U/L Troponin I (0.000-0.034) ng/mL NT-Pro-B Natriuret Pep pg/mL Total Protein 8.0 (6.3-8.2) g/dL Albumin 4.6 (3.5-5.0) g/dL 12/28/19 12/28/19 12/28/19 Range/Units 15:15 15:15 15:15 WBC (3.8-10.6) k/uL RBC (3.80-5.40) m/uL Hgb (11.4-16.0) gm/dL Hct (34.0-46.0) % MCV (80.0-100.0) fL MCH (25.0-35.0) pg MCHC (31.0-37.0) g/dL RDW (11.5-15.5) % Plt Count (150-450) k/uL Neutrophils % % Lymphocytes % % Monocytes % % Eosinophils % % Basophils % % Neutrophils # (1.3-7.7) k/uL Lymphocytes # (1.0-4.8) k/uL Monocytes # (0-1.0) k/uL Eosinophils # (0-0.7) k/uL Basophils # (0-0.2) k/uL PT (9.0-12.0) sec INR (<1.2) APTT (22.0-30.0) sec D-Dimer (<0.60) mg/L FEU Sodium (137-145) mmol/L Potassium (3.5-5.1) mmol/L Chloride (98-107) mmol/L Carbon Dioxide (22-30) mmol/L Anion Gap mmol/L BUN (7-17) mg/dL Creatinine (0.52-1.04) mg/dL Est GFR (CKD-EPI)AfAm (>60 ml/min/1.73 sqM) Est GFR (CKD-EPI)NonAf (>60 ml/min/1.73 sqM) Glucose (74-99) mg/dL Plasma Lactic Acid Yahir 1.4 (0.7-2.0) mmol/L Calcium (8.4-10.2) mg/dL Magnesium (1.6-2.3) mg/dL Total Bilirubin (0.2-1.3) mg/dL AST (14-36) U/L ALT (4-34) U/L Alkaline Phosphatase (38-126) U/L Troponin I <0.012 (0.000-0.034) ng/mL NT-Pro-B Natriuret Pep 35 pg/mL Total Protein (6.3-8.2) g/dL Albumin (3.5-5.0) g/dL - Radiology Data Chest x-ray is negative for any acute cardiopulmonary disease. CT scan is negative for PE. (Princess Lujan) Disposition Is patient prescribed a controlled substance at d/c from ED?: No Time of Disposition: 18:25 <Princess Lujan - Last Filed: 12/31/19 16:30> <Nancy Snyder - Last Filed: 01/03/20 01:09> Clinical Impression: Anxiety, Shortness of breath, Medication course changed Disposition: HOME SELF-CARE Condition: Good Instructions (If sedation given, give patient instructions): Mood Disorders (ED) Additional Instructions: Patient advised to have some follow-up with primary care physician and psychiatrist regards to adjusting the full doses of her medications. Patient can return to the emergency department if any alarming signs or symptoms occur. Referrals: Cookie Gupta MD [Primary Care Provider] - 1-2 days
[2019-12-28 15:35] LABS: Basophils % (A) 0 %; Eosinophils # (A) 0.1 k/uL (0-0.7); Eosinophils % (A) 2 %; HCT 44.1 % (34.0-46.0); HGB 14.4 gm/dL (11.4-16.0); Lymphocytes # (A) 1.2 k/uL (1.0-4.8); Lymphocytes % (A) 15 %; MCH 30.3 pg (25.0-35.0); MCHC 32.6 g/dL (31.0-37.0); MCV 92.9 fL (80.0-100.0); Mean Platelet Volume 8.4; Monocytes # (A) 0.4 k/uL (0-1.0); Monocytes % (A) 5 %; Neutrophils # (A) 5.8 k/uL (1.3-7.7); Neutrophils % (A) 75 %; Platelet Count 220 k/uL (150-450); RBC 4.74 m/uL (3.80-5.40); RDW 12.8 % (11.5-15.5); WBC 7.7 k/uL (3.8-10.6)
--- NOTE | 2019-12-28 15:44 | XR ---
EXAMINATION TYPE: XR chest 2V DATE OF EXAM: 12/28/2019 COMPARISON: 06/12/16 HISTORY: Shortness of breath TECHNIQUE: Frontal and lateral views of the chest are obtained. FINDINGS: Scattered senescent parenchymal changes noted. Hyperinflation compatible with COPD. No evidence for infiltrate. No evidence for atelectasis. Heart size is stable. Mediastinal structures are stable and grossly unremarkable. No evidence for hilar prominence. Degenerative changes dorsal spine. IMPRESSION: 1. No evidence for acute pulmonary disease.
[2019-12-28 15:47] LABS: Albumin 4.6 g/dL (3.5-5.0); Calcium 10.3 mg/dL (8.4-10.2); Magnesium 2.2 mg/dL (1.6-2.3); Potassium 3.7 mmol/L (3.5-5.1); Total Bilirubin 0.3 mg/dL (0.2-1.3)
[2019-12-28 15:58] LABS: INR 0.9 (<1.2); Partial Thromboplastin Time 23.9 sec (22.0-30.0); Prothrombin Time 9.5 sec (9.0-12.0)
[2019-12-28 16:20] LABS: D-Dimer 0.9 mg/L FEU (<0.60)
--- NOTE | 2019-12-28 17:31 | CT ---
CT CHEST FOR PULMONARY EMBOLISM. EXAMINATION TYPE: CT chest angio for PE DATE OF EXAM: 12/28/2019 INDICATION: SOB CT DLP: 355.7 mGycm, Automated exposure control for dose reduction was used. CONTRAST: Patient injected with 80 mL of Isovue 370. COMPARISON: None TECHNIQUE: CT of the chest is performed on a spiral scan at 2 mm thick sections. Study is performed with intravenous contrast timed for evaluation for pulmonary embolism. This will limit additional po rtions of the evaluation. 3-D MIP images reconstructed by the technologist are reviewed on the compu ter in the coronal and sagittal planes. FINDINGS: No persistent filling defects are evident to suggest an acute pulmonary embolism. No mediastinal or hilar adenopathy enlarged by CT criteria is evident. The ascending aorta diameter at the level of the main pulmonary artery is 3.4 cm. The main pulmonary artery diameter at the bifur cation is 2.2 cm. Lung windows are clear. Limited CT section through the upper abdomen are unremarkable. IMPRESSIONS: 1. No acute pulmonary embolism
[2019-12-28 19:12] VITALS: BP 145/60; PULSE 88; TEMP 98.1
== END 2019-12-28 19:05 | disposition home or self-care (01) ==
LOC: EC 14:39
DX: F41.9 Anxiety disorder, unspecified (principal); R06.02 Shortness of breath; E78.5 Hyperlipidemia, unspecified; I10 Essential (primary) hypertension; Z79.82 Long term (current) use of aspirin; Z79.899 Other long term (current) drug therapy; Z87.891 Personal history of nicotine dependence
CPT/HCPCS: 36415; 93005; 85379; 83880; 80053; 83605; 83735; 84484; 85025; 85610; 85730; 71046; 71275; 99285; 96360; 96361; Q9967; 96374

== ENCOUNTER 2020-02-21 17:51 | Inpatient (IN) | payer MEDICAID, MEDICARE ==
--- NOTE | 2020-02-21 18:21 | ED ---
General Adult HPI - General Chief complaint: Weakness Stated complaint: facial numbness/poss med reaction Time Seen by Provider: 02/21/20 18:08 Source: patient Mode of arrival: wheelchair Limitations: no limitations - History of Present Illness Initial comments: Dictation was produced using [employer] dictation software. please excuse any grammatical, word or spelling errors. This patient was cared for during a federal and state declared state of e mergency secondary to Covid 19 Chief Complaint: 74-year-old female recently diagnosed bipolar disease presents with paresthesias to the left face and left scalp History of Present Illness: Patient 74-year-old female she was recently diagnosed bipolar disease of the last 10 weeks she has been on Abilify. Ever since being started on Abilify she's developed paresthesias involving the left lower face left upper face and left scalp. She has no other neurologic issues. Daughter at bedside was also a guardian reports that patient has been very unmotivated to do anything. She does not want to take a shower or leave the house. Daughter is worried because this is outside of her baseline. Patient has no pain complaints. She denies any visual changes. They've been trying to get an appointment with a psychiatrist to have her medications possibly change. The ROS documented in this emergency department record has been reviewed and confirmed by me. Those systems with pertinent positive or negative responses have been documented in the HPI. All other systems are other negative and/or noncontributory. PHYSICAL EXAM: General Impression: Alert and oriented x3, not in acute distress HEENT: Normocephalic atraumatic, extra-ocular movements intact, pupils equal and reactive to light bilaterally, mucous membranes moist. Cardiovascular: Heart regular rate and rhythm Chest: Able to complete full sentences, no retractions, no tachypnea Abdomen: abdomen soft, non-tender, non-distended, no organomegaly Musculoskeletal: Pulses present and equal in all extremities, no peripheral edema Motor: no focal deficits noted Neurological: CN II-XII grossly intact, no focal motor or sensory deficits noted, she reports tingly sensation with light touch her left lower face, left upper face and left scalp area Skin: Intact with no visualized rashes Psych: Normal affect and mood ED course: 74-year-old feel presents with left face and left scalp paresthesias. All signs upon arrival are within acceptable limits. Laboratory evaluation unremarkable. Serum alcohol is negative. Computed tomography scan of the brain is unremarkable. Clinical presentation is not suggestive of any central neurologic issue. Patient medically cleared for EPS evaluation. EPS evaluation patient and would recommend inpatient admission due to debility that EPS feels is from her psychiatric disease. Patient and daughter are agreeable to disposition. - Related Data Home Medications Medication Instructions Recorded Confirmed Aspirin EC [Ecotrin Low Dose] 81 mg PO W/LUNCH 01/27/19 12/28/19 Calcium Carbonate [Calcium] 600 mg PO W/LUNCH 01/27/19 12/28/19 Garlic 1 tab PO W/LUNCH 01/27/19 12/28/19 [place]-3 Fatty Acids/Fish Oil [Fish 1 cap PO W/LUNCH 01/27/19 12/28/19 Oil 1,000 mg Softgel] Pravastatin Sodium [Pravachol] 10 mg PO HS 01/27/19 12/28/19 hydroCHLOROthiazide 25 mg PO DAILY 01/27/19 12/28/19 lisinopriL [Zestril] 40 mg PO DAILY 01/27/19 12/28/19 Previous Rx's Medication Instructions Recorded ARIPiprazole [Abilify] 15 mg PO DAILY #30 tab 12/01/19 Allergies Allergy/AdvReac Type Severity Reaction Status Date / Time No Known Allergies Allergy Verified 02/21/20 18:06 Review of Systems ROS Statement: Those systems with pertinent positive or pertinent negative responses have been documented in the HPI. ROS Other: All systems not noted in ROS Statement are negative. Past Medical History Past Medical History: Hyperlipidemia, Hypertension Additional Past Medical History / Comment(s): Psychological hx History of Any Multi-Drug Resistant Organisms: None Reported Past Surgical History: Hysterectomy Additional Past Surgical History / Comment(s): Mastectomy left side Past Anesthesia/Blood Transfusion Reactions: No Reported Reaction Past Psychological History: Anxiety, Bipolar, Panic Disorder Smoking Status: Never smoker Past Alcohol Use History: None Reported Past Drug Use History: None Reported General Exam Limitations: no limitations Course Vital Signs 02/21/20 18:01 Temperature 99.2 F Pulse Rate 103 H Respiratory 20 Rate Blood Pressure 131/73 O2 Sat by Pulse 99 Oximetry Medical Decision Making - Lab Data Result diagrams: 02/21/20 18:24 02/21/20 18:24 Lab Results 02/21/20 02/21/20 Range/Units 18:24 18:24 WBC 7.9 (3.8-10.6) k/uL RBC 4.85 (3.80-5.40) m/uL Hgb 14.9 (11.4-16.0) gm/dL Hct 44.7 (34.0-46.0) % MCV 92.2 (80.0-100.0) fL MCH 30.7 (25.0-35.0) pg MCHC 33.3 (31.0-37.0) g/dL RDW 13.0 (11.5-15.5) % Plt Count 240 (150-450) k/uL Neutrophils % 73 % Lymphocytes % 17 % Monocytes % 6 % Eosinophils % 2 % Basophils % 1 % Neutrophils # 5.8 (1.3-7.7) k/uL Lymphocytes # 1.3 (1.0-4.8) k/uL Monocytes # 0.5 (0-1.0) k/uL Eosinophils # 0.2 (0-0.7) k/uL Basophils # 0.1 (0-0.2) k/uL Sodium 138 (137-145) mmol/L Potassium 3.9 (3.5-5.1) mmol/L Chloride 101 (98-107) mmol/L Carbon Dioxide 28 (22-30) mmol/L Anion Gap 9 mmol/L BUN 26 H (7-17) mg/dL Creatinine 0.85 (0.52-1.04) mg/dL Est GFR (CKD-EPI)AfAm 80 (>60 ml/min/1.73 sqM) Est GFR (CKD-EPI)NonAf 69 (>60 ml/min/1.73 sqM) Glucose 172 H (74-99) mg/dL Calcium 10.2 (8.4-10.2) mg/dL Magnesium 1.9 (1.6-2.3) mg/dL Total Bilirubin 0.5 (0.2-1.3) mg/dL AST 46 H (14-36) U/L ALT 61 H (4-34) U/L Alkaline Phosphatase 81 (38-126) U/L Total Protein 7.4 (6.3-8.2) g/dL Albumin 4.4 (3.5-5.0) g/dL Serum Alcohol <10 mg/dL Disposition Clinical Impression: Paresthesia, Psychosis Disposition: ADMITTED IP TO THIS HOSP Condition: Fair Referrals: Cookie Gupta MD [Primary Care Provider] - 1-2 days Decision Time: 20:41
[2020-02-21 18:37] LABS: Basophils # (A) 0.1 k/uL (0-0.2); Basophils % (A) 1 %; Eosinophils # (A) 0.2 k/uL (0-0.7); Eosinophils % (A) 2 %; HCT 44.7 % (34.0-46.0); HGB 14.9 gm/dL (11.4-16.0); Lymphocytes # (A) 1.3 k/uL (1.0-4.8); Lymphocytes % (A) 17 %; MCH 30.7 pg (25.0-35.0); MCHC 33.3 g/dL (31.0-37.0); MCV 92.2 fL (80.0-100.0); Mean Platelet Volume 8.8; Monocytes # (A) 0.5 k/uL (0-1.0); Monocytes % (A) 6 %; Neutrophils # (A) 5.8 k/uL (1.3-7.7); Neutrophils % (A) 73 %; Platelet Count 240 k/uL (150-450); RBC 4.85 m/uL (3.80-5.40); WBC 7.9 k/uL (3.8-10.6)
--- NOTE | 2020-02-21 18:49 | CT ---
EXAMINATION TYPE: CT brain wo con DATE OF EXAM: 02/21/2020 HISTORY: Weakness. Facial and scalp paresthesias. CT DLP: 1060.4 mGycm. Automated Exposure Control for Dose Reduction was Utilized. TECHNIQUE: CT scan of the head is performed without contrast. COMPARISON: None. FINDINGS: There is no acute intracranial hemorrhage or midline shift identified. Ventricles and sul ci within normal limits in size for patient's age. Ravi-white matter differentiation fairly well main tained. The globes are intact and the visualized sinuses are clear. IMPRESSION: No acute intracranial hemorrhage or midline shift.
[2020-02-21 18:50] LABS: ALT 61 U/L (4-34); AST 46 U/L (14-36); African American GFR (CKD) 80 (>60 ml/min/1.73 sqM); Albumin 4.4 g/dL (3.5-5.0); Alcohol <10 mg/dL; Alkaline Phosphatase 81 U/L (38-126); Anion Gap 9 mmol/L; Blood Urea Nitrogen 26 mg/dL (7-17); Calcium 10.2 mg/dL (8.4-10.2); Carbon Dioxide 28 mmol/L (22-30); Chloride 101 mmol/L (98-107); Glucose 172 mg/dL (74-99); Magnesium 1.9 mg/dL (1.6-2.3); Non-African American GFR(CKD) 69 (>60 ml/min/1.73 sqM); Potassium 3.9 mmol/L (3.5-5.1); Sodium 138 mmol/L (137-145); Total Bilirubin 0.5 mg/dL (0.2-1.3); Total Protein 7.4 g/dL (6.3-8.2)
[2020-02-21] MEDS ORDERED: ZIPRASIDONE 20 MG VIAL IM PRN (21:29)
[2020-02-21] MEDS ORDERED: MAGNESIUM HYDROXIDE 2,400 MG/10 ML CUP PO PRN (21:29)
[2020-02-21] MEDS ORDERED: MAG HYDROX/AL HYDROX/SIMETH 30 ML CUP PO PRN (21:29)
[2020-02-21] MEDS ORDERED: LORazepam 1 MG TAB PO PRN (21:29)
[2020-02-21] MEDS ORDERED: ACETAMINOPHEN TAB 325 MG TAB PO PRN (21:29)
[2020-02-21] MEDS ORDERED: LORazepam 2 MG/ML INJ IM PRN (21:30)
[2020-02-22] MEDS: lisinopriL 20 MG TAB PO SCH (08:05)
[2020-02-22] MEDS: hydroCHLOROthiazide 25 MG TAB PO SCH (08:05)
[2020-02-22] MEDS ORDERED: ALPRAZolam 0.25 MG TAB PO STA (10:36)
[2020-02-22] MEDS ORDERED: ALPRAZolam 0.25 MG TAB PO PRN (11:38)
[2020-02-22] MEDS ORDERED: NON FORMULARY DRUG (Omega-3 Fatty Acids/Fish Oil [Fish Oil 1,000 Mg Softgel] 1 CAP) PO SCH (12:30)
[2020-02-22] MEDS: CALCIUM CARBONATE 500 MG CHEWABLE PO SCH (12:40)
[2020-02-22] MEDS: ASPIRIN 81 MG PO SCH (12:40)
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
[2020-02-22 17:34] LABS: Hemoglobin A1C 5.6 % (4.0-6.0)
[2020-02-22] MEDS: PRAVASTATIN SODIUM 20 MG TAB PO SCH (20:44)
[2020-02-22] MEDS ORDERED: LURASIDONE 40 MG TAB PO SCH (21:00)
--- NOTE | 2020-02-22 22:43 | P.MDCNMH ---
History of Present Illness H&P Date: 02/22/20 Chief Complaint: Facial numbness and anxiety Ms. Mitchell glaser a 74-year-old female with a past medical history of hypertension, hyperlipidemia, bipolar disorder, anxiety, panic disorder coming to the hospital with a chief complaint of left lower face and left scalp paresthesias. Patient states that she was started on Abilify few weeks back and ever since that she developed a weird sensation on the left side of the face and scalp. As per the ED note patient's daughter reported that the patient has been not herself, she did not want to leave her house or take a shower and was not motivated. She thinks this is not her baseline. In the emergency patient had CT of the head that was negative for any acute intracranial hemorrhage or midline shift her vitals have been within normal limits and labs showed no acute abnormality other than mildly elevated AST ALT. So the patient was eventually admitted to the psychiatric unit. Currently on talking to the patient, she mentions that she is here because she has been feeling very anxious at home, so anxious that she did not want to leave the home. She was also complaining of the left-sided facial paresthesias. Patient denies having any headaches neck pain or jaw pain. No blurring of her vision. Patient denies having any weakness of her extremities. She did not mention about having any gait changes. Review of Systems REVIEW OF SYSTEMS: CONSTITUTIONAL: No fever, no malaise, no fatigue. HEENT: No recent visual problems or hearing problems. Denied any sore throat. CARDIOVASCULAR: No chest pain, palpitations, orthopnea or PND PULMONARY: No cough, difficulty in breathing or hemoptysis GASTROINTESTINAL: No diarrhea, no nausea, no abdominal pain. NEUROLOGICAL: No headaches, no weakness, no numbness. HEMATOLOGICAL: Denies any bleeding or petechiae. GENITOURINARY: Denies any burning micturition, frequency, or urgency. MUSCULOSKELETAL/RHEUMATOLOGICAL: No joint swelling or pain ENDOCRINE: Denies any polyuria or polydipsia. The rest of the 13-point review of systems is negative. Past Medical History Past Medical History: Hyperlipidemia, Hypertension Additional Past Medical History / Comment(s): Psychological hx History of Any Multi-Drug Resistant Organisms: None Reported Past Surgical History: Hysterectomy Additional Past Surgical History / Comment(s): Mastectomy left side Past Anesthesia/Blood Transfusion Reactions: No Reported Reaction Past Psychological History: Anxiety, Bipolar, Panic Disorder Smoking Status: Never smoker Past Alcohol Use History: None Reported Past Drug Use History: None Reported Medications and Allergies Home Medications Medication Instructions Recorded Confirmed Type Aspirin EC [Ecotrin Low Dose] 81 mg PO W/LUNCH 01/27/19 02/21/20 History Calcium Carbonate [Calcium] 600 mg PO W/LUNCH 01/27/19 02/21/20 History Garlic 1 tab PO W/LUNCH 01/27/19 02/21/20 History [place]-3 Fatty Acids/Fish Oil [Fish 1 cap PO W/LUNCH 01/27/19 02/21/20 History Oil 1,000 mg Softgel] hydroCHLOROthiazide 25 mg PO DAILY 01/27/19 02/21/20 History ARIPiprazole [Abilify] 15 mg PO DAILY #30 tab 12/01/19 02/21/20 Rx Pravastatin Sodium [Pravachol] 20 mg PO HS 02/21/20 02/21/20 History lisinopriL 20 mg PO DAILY 02/21/20 02/21/20 History Allergies Allergy/AdvReac Type Severity Reaction Status Date / Time No Known Allergies Allergy Verified 02/21/20 21:03 Physical Exam Vitals: Vital Signs Temp Pulse Pulse Resp BP BP Pulse Ox 02/22/20 14:37 98.2 F 02/22/20 08:00 107 H 114/57 02/22/20 06:16 98.0 F 67 16 140/72 97 02/21/20 23:26 98.3 F 102 H 18 145/82 99 02/21/20 18:01 99.2 F 103 H 20 131/73 99 Intake and Output 02/22/20 02/22/20 02/22/20 06:59 14:59 22:59 Other: Weight 79.3 kg PHYSICAL EXAMINATION: GENERAL: appears to be in no acute distress. HEENT: Pupils are round and equally reacting to light. EOMI. mild scleral icterus. No conjunctival pallor. Normocephalic, atraumatic. CARDIOVASCULAR: S1 and S2 heard. No additional sounds. PULMONARY: Bilateral breath sounds are positive, no wheeze or crackles ABDOMEN: Soft, nontender, nondistended, normoactive bowel sounds. No palpable organomegaly. MUSCULOSKELETAL: No joint swelling or deformity. EXTREMITIES: No cyanosis, clubbing, or pedal edema. NEUROLOGICAL: Alert awake oriented 3, No facial droop, Strenght is 5/5 in all extremities SKIN: No rash Cranial Nerve Examination - Cranial Nerves Cranial Nerve II- Optic: Intact Cranial Nerve III- Oculomotor: Intact Cranial Nerve IV- Trochlear: Intact Cranial Nerve V- Trigeminal: Intact Cranial Nerve - Abducens: Intact Cranial Nerve VII- Facial: Intact Cranial Nerve VIII- Auditory: Intact Cranial Nerve IX- Glossopharyngeal: Intact Cranial Nerve X- Vagus: Intact Cranial Nerve XI- Accessory: Intact Cranial Nerve XII- Hypoglossal: Intact Results CBC & Chem 7: 02/21/20 18:24 02/21/20 18:24 Labs: Abnormal Lab Results - Last 24 Hours (Table) 02/21/20 02/21/20 Range/Units 18:24 18:24 BUN 26 H (7-17) mg/dL Glucose 172 H (74-99) mg/dL AST 46 H (14-36) U/L ALT 61 H (4-34) U/L Triglycerides 153 H (<150) mg/dL Assessment and Plan Assessment: ASSESSMENT Facial paresthesias-could be due to psychosis -as there is no clear-cut evidence of neurological process. Mild transaminitis Hypertension Hyperlipidemia Bipolar disorder Anxiety with panic disorder PLAN : Patient's complaint of facial paresthesias does not have a clear evidence of neurological process. She has extensive psychiatric history, and recently started on Abilify. Patient's home medications including hydrochlorothiazide, Zestril, pravastatin, aspirin have been restarted. Continue with the current regimen. We will follow the patient on as-needed basis. Thank you for allowing us to participate in the care of the patient.
[2020-02-23] MEDS: hydroCHLOROthiazide 25 MG TAB PO SCH (08:08)
[2020-02-23] MEDS: lisinopriL 20 MG TAB PO SCH (08:08)
[2020-02-23] MEDS ORDERED: ALPRAZolam 0.5 MG TAB PO STA (09:06)
--- NOTE | 2020-02-23 10:01 | P.PN ---
Progress Note - Text Progress Note Date: 02/23/20 I reviewed medical records ,did interview patient and case was discussed in treatment team I reviewed medical consult :according to his note:((ASSESSMENT Facial paresthesias-could be due to psychosis -as there is no clear-cut evidence of neurological process. Mild transaminitis Hypertension Hyperlipidemia Bipolar disorder Anxiety with panic disorder PLAN : Patient's complaint of facial paresthesias does not have a clear evidence of neurological process. She has extensive psychiatric history, and recently started on Abilify. Patient's home medications including hydrochlorothiazide, Zestril, pravastatin, aspirin have been restarted.)))) TODAY VITALS:Pulse:101,R:16,BP:122/60 According to staff patient slept 6 hours ,no agitation or behavioral issue,did require PRN Xanax last night Interval history: Patient was laying in bed and agreed to follow me to office , she was trying to be cooperative ,stated that she did not sleep last night "I do feel miserable",reports poor appetite ,no motivation ,paranoia ,somatic delusion "I am scared to walk ,I might fall down ,I have numbness on my left side",reality oriented was offered and I told her about negative brain CT scan but she does not believe and stated that something wrong in Brain CT machine,lot of somatic c/o,endorses high anxiety related to her somatic delusional thinking Today she denies any current suicidal or homicidal ideation , she denies any hallucination Mental status exam: Patient was wearing hospital gown ,unkept,disheveled ,hard of hearing ,. looked anxious and nervous ,she was non spontaneous but coherent ,stated mood "Miserable",affect is blunted ,evasive , endorses somatic delusion and paranoia,denies any hallucination ,denies any suicidal or homicidal ideation,insight and judgment are limited ASSESSMENT: Bipolar ,current episode :mixed with psychptic features PLAN: Patient continues to meet criteria for inpatient psychiatric admission for symptom stabilization and safety. Increase Latuda to 80 mg ,change Xanax to low dose of Ativan PRN for anxiety Monitor for medication compliance and for any psychotropic medication side effects. Will continue to monitor ongoing response to treatment. Encouraged participation in milieu.
[2020-02-23] MEDS: ASPIRIN 81 MG PO SCH (12:42)
[2020-02-23] MEDS: CALCIUM CARBONATE 500 MG CHEWABLE PO SCH (12:42)
[2020-02-23] MEDS: PRAVASTATIN SODIUM 20 MG TAB PO SCH (21:12)
[2020-02-24] MEDS: LURASIDONE 80 MG TAB PO SCH (09:18)
[2020-02-24] MEDS: hydroCHLOROthiazide 25 MG TAB PO SCH (09:19)
[2020-02-24] MEDS: lisinopriL 20 MG TAB PO SCH (09:19)
--- NOTE | 2020-02-24 09:20 | P.PN ---
Progress Note - Text Progress Note Date: 02/24/20 I reviewed medical records ,did interview patient and case was discussed in treatment team TODAY VITALS:temp:98,Pulse:88,R:18,BP:111/67 Slept 5 hours but was up at night No participation in any groups Interval history: Patient was laying in bed and agreed to follow me to office , she was trying to be cooperative ,stated that she did not sleep last night "I do not feel good reports poor appetite ,no motivation ,paranoia ,somatic delusion ,childlike behavior,reports feeling dizzy ,she stated "I do not have energy,I just want to lay down ,I am afraid to take shower" She denies any current suicidal or homicidal ideation , she denies any hallucination Mental status exam: Patient was wearing street cloth ,unkept,disheveled ,hard of hearing ,. looked anxious and nervous ,she was non spontaneous but coherent ,stated mood "Just tired"",affect is blunted , endorses somatic delusion and paranoia,denies any hallucination ,denies any suicidal or homicidal ideation,insight and judgment are limited ASSESSMENT: Bipolar ,current episode :mixed with psychptic features PLAN: Patient continues to meet criteria for inpatient psychiatric admission for symptom stabilization and safety. Continue Latuda 80 mg ,add remeron HS for sleep,continue Ativan PRN for anxiety Monitor for medication compliance and for any psychotropic medication side effects. Will continue to monitor ongoing response to treatment. Encouraged participation in milieu.
[2020-02-24] MEDS: CALCIUM CARBONATE 500 MG CHEWABLE PO SCH (12:41)
[2020-02-24] MEDS: ASPIRIN 81 MG PO SCH (12:41)
[2020-02-24] MEDS: PRAVASTATIN SODIUM 20 MG TAB PO SCH (20:48)
[2020-02-24] MEDS: MIRTAZAPINE 15 MG TAB PO SCH (20:48)
[2020-02-25] MEDS: LURASIDONE 80 MG TAB PO SCH (08:30)
[2020-02-25] MEDS: hydroCHLOROthiazide 25 MG TAB PO SCH (08:30)
[2020-02-25] MEDS: lisinopriL 20 MG TAB PO SCH (08:30)
--- NOTE | 2020-02-25 09:41 | P.PN ---
Progress Note - Text Progress Note Date: 02/25/20 I reviewed medical records ,did interview patient and case was discussed in treatment team TODAY VITALS:temp:98,Pulse:68,R;17,BP:134/76 Slept :7 hours Did participate in one group AT ,stated that she is not able to go to all groups because"I do not have my hearing aid" Interval history: Patient was laying in bed and agreed to follow me to office , she was trying to be cooperative ,stated that she slept better last night and her appetite is better ,was able to shower last night "I felt good after I showered" still fixated on somatic complain ,childlike behavior,reports feeling dizzy and "I am walking like drunk person" She denies any current suicidal or homicidal ideation , she denies any hallucination Mental status exam: Patient was wearing street cloth ,hygiene is improving ,hard of hearing ,. looked less anxious than yesterday ,she was non spontaneous but coherent ,stated mood "Just tired"",affect is blunted , endorses somatic complains,denies any hallucination ,denies any suicidal or homicidal ideation,insight and judgment are limited ASSESSMENT: Bipolar ,current episode :mixed with psychptic features PLAN: Patient continues to meet criteria for inpatient psychiatric admission for symptom stabilization and safety. Continue Latuda 80 mg ,and remeron HS for sleep,continue Ativan PRN for anxiety Monitor for medication compliance and for any psychotropic medication side effects. Will consult PT , Will continue to monitor ongoing response to treatment. Encouraged participation in milieu.
[2020-02-25] MEDS: CALCIUM CARBONATE 500 MG CHEWABLE PO SCH (13:20)
[2020-02-25] MEDS: ASPIRIN 81 MG PO SCH (13:20)
[2020-02-25] MEDS: MIRTAZAPINE 15 MG TAB PO SCH (21:06)
[2020-02-25] MEDS: PRAVASTATIN SODIUM 20 MG TAB PO SCH (21:06)
[2020-02-26] MEDS: LORazepam 0.5 MG TAB PO PRN (01:20)
[2020-02-26] MEDS: LURASIDONE 80 MG TAB PO SCH (08:42)
[2020-02-26] MEDS: lisinopriL 20 MG TAB PO SCH (08:42)
[2020-02-26] MEDS: CALCIUM CARBONATE 500 MG CHEWABLE PO SCH (08:42)
[2020-02-26] MEDS: hydroCHLOROthiazide 25 MG TAB PO SCH (08:42)
[2020-02-26] MEDS: ASPIRIN 81 MG PO SCH (08:43)
[2020-02-26] MEDS: BENZTROPINE MESYLATE 0.5 MG TAB PO SCH ×2 (17:24→20:37)
--- NOTE | 2020-02-26 18:52 | PN ---
PROGRESS NOTE DATE OF SERVICE: 02/26/2020. CHIEF COMPLAINT: The patient was having panic symptoms. She had poor sleep and appetite. She was very fearful. INTERVAL HISTORY: Patient has been doing fair. She had a quiet evening last night. She attended one group. She comes out in the day area. She will interact a little with others. She slept fairly well last night. Today, she has been up. She did attend one group today and talked about feeling that her daughters are a good support system for her. She also talked about some coping mechanisms that she has. She notes that she has been having some trouble walking and feels like she has trouble moving her legs forward. Sometimes she says she feels a little unsteady on her feet. She also notes some mild tremor in her hands. She says that overall her anxiety is somewhat less, though she is still fearful about the idea of having panic attacks which are very distressing to her. She discussed some physical symptoms that she has, though it was difficult to be clear what she was talking about. She says she has a feeling in the back side of her head on the left. At one point, she said that feeling seems to drive some of her activities, though was not clear what she meant by that. At other times, she felt it was some kind of an odd feeling more than anything else. She reported no specific problems related to her medications. MENTAL STATUS EXAM: Patient sat with a little restlessness. Eye contact was fair. Mostly she looked somewhat straight-ahead. She had some restlessness in her legs. She answered questions appropriately. Her thoughts were clear. She did not say a lot. Her affect was blunted. Her mood reserved. She did not appear to be significantly distressed. It is noteworthy that when she walked out of the office, she also seemed to have some stiffness in her posture and gait and she made a comment about some trouble she is having with her walking. It was difficult to be clear about the issues of thought disorder. She voiced no thoughts of harm. She was oriented to circumstances and surroundings. ASSESSMENT: I will continue the current diagnosis and treatment plan. I will continue her psychotropic medications the same, though will add Cogentin 0.5 mg twice a day. The patient may be having some EPS symptoms affecting her gait, tremor as well as some of her other vague physical symptoms that she reports. I reviewed medication issues with the patient. I discussed possible side effects including metabolic and potential for movement disorder. I encouraged the patient to talk to staff if she thought she was having any problems or concerns. We will focus on stabilization and discharge planning. WILMAR / MARIANA: [id number] /
[2020-02-26] MEDS: PRAVASTATIN SODIUM 20 MG TAB PO SCH (20:35)
[2020-02-26] MEDS: MIRTAZAPINE 15 MG TAB PO SCH (20:35)
[2020-02-27] MEDS: hydroCHLOROthiazide 25 MG TAB PO SCH (08:39)
[2020-02-27] MEDS: LURASIDONE 80 MG TAB PO SCH (08:39)
[2020-02-27] MEDS: lisinopriL 20 MG TAB PO SCH (08:40)
[2020-02-27] MEDS: BENZTROPINE MESYLATE 0.5 MG TAB PO SCH ×2 (08:40→21:18)
[2020-02-27] MEDS: ASPIRIN 81 MG PO SCH (12:48)
[2020-02-27] MEDS: CALCIUM CARBONATE 500 MG CHEWABLE PO SCH (12:48)
--- NOTE | 2020-02-27 16:14 | PN ---
PROGRESS NOTE DATE OF SERVICE: 02/27/2020 CHIEF COMPLAINT: The patient was having panic symptoms. She had poor sleep and appetite. She was very fearful. INTERVAL HISTORY: Patient has been doing fair. Overall she continues about the same. She had a quiet evening last night. Mostly she stays in her room. She does not interact much with others. She chooses not to attend activities. She said that today she is having a little more trouble than yesterday, though she was not too specific. She does report some anxiety. She talked about having panic attacks. It was not clear if she has had any panic attacks in the last few days. She slept fairly well last night. Today she again has mostly been in her room. She said she gets times where she feels her heart is beating very fast. This morning, her pulse at 8:40 am was 108. The rest of her vital signs included BP 111/60 and respirations 18. When I asked her what things might be bothering her, the only thing she talked about was missing her children and wanting to get out to see her children. She has been cooperative with care. She tolerates her psychotropic medications. MENTAL STATUS: Patient gave fair eye contact. Psychomotor activity was slowed. Speech was monotone. She answered questions with just 1 or 2 word responses. She was not spontaneous or interactive at all. Her affect was flat. Her mood depressed. She was moderately distressed. There was no indication of thought disorder. She was oriented to her circumstances and surroundings. ASSESSMENT: I will continue the current diagnosis and treatment plan. I will continue psychotropic medications the same. She may benefit from an increase in her Remeron or Latuda or both. I have started a low dose of Cogentin. There might be consideration for increasing Cogentin as well related to her complaints of anxiety. The anxiety complaints could be secondary to akathisia. I discussed discharge planning issues briefly with the patient. We will focus on stabilization and discharge. MMODL / IJN: [id number] /
[2020-02-27] MEDS: MIRTAZAPINE 15 MG TAB PO SCH (21:18)
[2020-02-27] MEDS: PRAVASTATIN SODIUM 20 MG TAB PO SCH (21:18)
[2020-02-28] MEDS: LURASIDONE 80 MG TAB PO SCH (08:31)
[2020-02-28] MEDS: lisinopriL 20 MG TAB PO SCH (08:31)
[2020-02-28] MEDS: hydroCHLOROthiazide 25 MG TAB PO SCH (08:31)
[2020-02-28] MEDS: BENZTROPINE MESYLATE 0.5 MG TAB PO SCH ×2 (08:31→20:26)
--- NOTE | 2020-02-28 09:36 | P.PN ---
Progress Note - Text Progress Note Date: 02/28/20 I reviewed medical records ,did interview patient and case was discussed in treatment team I reviewed psychiatric notes from weekend ,Reid was added Has minimal participation in groups ,minimal interaction with others peers I reviewed PT evaluation :((Pt. pleasant and cooperative with PT. Pt. able to complete functional mobility activities. Pt. had no episodes of LOB with standing activities. Pt. had limp with ambulation, states this is her baseline. Pt. denies any lightheadedness/dizziness with activity. Pt. denies any PT needs at this time.)) Interval history: Patient was laying in bed and agreed to follow me to office , she was trying to be cooperative ,stated that she slept better last night and her appetite is better ,she stated that she is missing her children and was asking when she can go home to see them ,still endorsing anxiety but she stated "it is less then before,I am still scarred to shower on my own " She denies any current suicidal or homicidal ideation , she denies any hallucination Mental status exam: Patient was wearing hospital gown ,unkept ,body odor,hard of hearing ,. looked less anxious than first day of her admission ,she was non spontaneous but coherent ,stated mood "anxious",affect is blunted , childlike attitude ,denies any hallucination ,denies any suicidal or homicidal ideation,insight and judgment are limited ASSESSMENT: Bipolar ,current episode :mixed with psychptic features PLAN: Patient continues to meet criteria for inpatient psychiatric admission for symptom stabilization and safety. Continue Latuda 80 mg ,and increase Remeron 30 mg for mood and anxiety ,continue Ativan PRN for anxiety Monitor for medication compliance and for any psychotropic medication side effects. Will continue to monitor ongoing response to treatment. Encouraged participation in milieu.
[2020-02-28 11:09] VITALS: BMI 32.1
[2020-02-28] MEDS: ASPIRIN 81 MG PO SCH (12:26)
[2020-02-28] MEDS: CALCIUM CARBONATE 500 MG CHEWABLE PO SCH (12:26)
--- NOTE | 2020-02-28 13:30 | P.PN ---
Progress Note - Text Progress Note Date: 02/28/20 Addendum to previous note; Received information from RN that patient called her daughter "Tracy "and was complaining of feeling dizzy,wobbling,staying in bed and feeling drunk on new medication ,Tracy stated that her mother has delayed response which is not like her and Tracy asked if we can decrease med. dose Plan: continue meds as RX ,do recommend that Tracy has to visit patient to re-evaluate patient basic function level as patient is always somatic preoccupied
[2020-02-28] MEDS: MIRTAZAPINE 15 MG TAB PO SCH (20:25)
[2020-02-28] MEDS: LORazepam 0.5 MG TAB PO PRN (20:26)
[2020-02-28] MEDS: PRAVASTATIN SODIUM 20 MG TAB PO SCH (20:43)
[2020-02-29] MEDS: BENZTROPINE MESYLATE 0.5 MG TAB PO SCH ×2 (08:45→20:41)
[2020-02-29] MEDS: LURASIDONE 80 MG TAB PO SCH (08:46)
[2020-02-29] MEDS: lisinopriL 20 MG TAB PO SCH (08:46)
[2020-02-29] MEDS: hydroCHLOROthiazide 25 MG TAB PO SCH (08:46)
[2020-02-29] MEDS ORDERED: ALPRAZolam 0.25 MG TAB PO PRN (09:20)
--- NOTE | 2020-02-29 09:28 | P.PN ---
Progress Note - Text Progress Note Date: 02/29/20 I reviewed medical records ,did interview patient and case was discussed in treatment team TODAY VITALS:temp:97.8,P:84,R:18,BP:113/63 Slept :6 hours last night Received PRN Ativan last night Did not participate in groups Interval history: Patient was laying in bed and agreed to follow me to office , she was trying to be cooperative ,stated that she slept better last night and her appetite is better ,was able to shower last night "I felt good after I showered" still fixated on somatic complain ,childlike behavior,reports feeling "Off balance when I walk",patient stated that the doctor told her if she is wearing both hearing aids she will be off balance ,she stated "I told my daughter to garbage pick up man my left ear hearing aid" She denies any current suicidal or homicidal ideation , she denies any hallucination Mental status exam: Patient was wearing street cloth ,hygiene is improving ,hard of hearing ,. looked less anxious than yesterday ,she was non spontaneous but coherent ,stated mood "Just off balance"",affect is blunted , endorses somatic complains,denies any hallucination ,denies any suicidal or homicidal ideation patient was able to walk independently,insight and judgment are limited ASSESSMENT: Bipolar ,current episode :mixed with psychptic features PLAN: Patient continues to meet criteria for inpatient psychiatric admission for symptom stabilization and safety. Continue Latuda 80 mg ,and remeron HS for sleep,d/c Ativan ,Xanax prn for anxiety Monitor for medication compliance and for any psychotropic medication side effects. Will consult PT , Will continue to monitor ongoing response to treatment. Encouraged participation in milieu.
[2020-02-29] MEDS: CALCIUM CARBONATE 500 MG CHEWABLE PO SCH (12:21)
[2020-02-29] MEDS: ASPIRIN 81 MG PO SCH (12:22)
[2020-02-29] MEDS: PRAVASTATIN SODIUM 20 MG TAB PO SCH (20:41)
[2020-02-29] MEDS: MIRTAZAPINE 15 MG TAB PO SCH (20:41)
[2020-03-01] MEDS: BENZTROPINE MESYLATE 0.5 MG TAB PO SCH (08:22)
[2020-03-01] MEDS: lisinopriL 20 MG TAB PO SCH (08:22)
[2020-03-01] MEDS: hydroCHLOROthiazide 25 MG TAB PO SCH (08:22)
--- NOTE | 2020-03-01 08:52 | DS ---
DISCHARGE SUMMARY DATE OF ADMISSION: 02/21/2020 DATE OF DISCHARGE: 03/01/2020 CONSULTATIONS: Bruno Cedeno D.O., Margret Pearson M.D. and Physical Therapy for evaluation. HISTORY OF PRESENT ILLNESS: Sarah is a 74-year-old female who presented to the emergency room with numbness on her left face and left scalp. In the ER, she has a CT scan of the brain and it came back negative and they did complete neurological workup and it was insignificant or negative. The patient's daughter Tracy, who is her guardian, was at her bedside and she stated that since the patient has been on Abilify during her last admission, she has been tired and not motivated to do anything, does not want to take a shower or leave the house and it was not her baseline. For complete psychiatric evaluation, please refer to my H&P. HOSPITAL COURSE: The patient was seen by the medical doctor who stated that the patient has hypertension, hyperlipidemia, and he did recommend to continue her on the same medication of aspirin, Zestril and hydrochlorothiazide. I discontinued the Abilify and I started her on Latuda and gradually titrated this to 80 mg. However, the patient was very dramatic created by calling her guardian or her daughter, complaining of feeling dizzy and lightheaded. We did consult physical therapy, who stated that the patient has been walking independently with a slight limp, but did not have any dizzy spells during his evaluation. The patient was complaining of poor appetite and poor sleep and at times she was tearful saying that she is missing her kids and her grandchildren, so she was started on Remeron 15 mg and gradually increase this to 30 mg at bedtime. The patient was able to sleep through the night and her appetite has been improved, as she was eating 100% of her meals. Initially, she was not attending any groups, but for the last 4 days she was attending group and did not demonstrate any agitation. She was pleasant and cooperative and her symptoms have been significantly improved. On February 27, her daughter called and stated that she does feel that Latuda is too much and she asked to cut it down from 80 mg to 60 mg. I did this, and the patient was able to tolerate it. However, during her stay, she was always complaining of physical symptoms as feeling dizzy or lightheaded, but in the same time, the patient did not have her hearing aid during the hospitalization because her daughter stated that she always is losing the hearing aid and it is very expensive. The patient was provided only with 1 hearing aid on the right ear, but the patient has bilateral hearing impairment. The patient was very anxious throughout her stay here and she was always asking for Ativan, but as I found that she has been very sluggish and tired on the Ativan, I changed it to Xanax 0.25 as needed. Our home health care social worker spoke with Tracy, who is her guardian, more than once and she did agree to refer the patient to [facility] for followup. MENTAL STATUS EXAMINATION: At the time of the discharge, the patient is an overweight female appearing her stated age. She is dressed in her own clothing. Hygiene and grooming fair. Good eye contact. She does have significant hearing deficit, but still is able to communicate. She indicated that her mood is better. Affect is blunted. She reports no hopeless feelings, no suicidal ideation, intent, or plan. She denied any auditory or visual hallucination. She denied any delusional thinking. She is alert and oriented x3. There is no verbal or physical aggression. She did not demonstrate any involuntary movement and her speech is spontaneous and nonpressured. Insight and judgment are fair. DISCHARGE DIAGNOSIS: 1. Bipolar disorder mixed with psychotic features. In remission. 2. Intellectual disability. PLAN: The patient will be discharged from the mental health unit today to return to her home. galley worker is arranging outpatient mental health follow up with [facility]. The patient will continue on Latuda 60 mg in the morning, Remeron 30 mg at bedtime, Xanax 0.25 three times a day as needed. Patient to follow up with her primary care physician for her physical needs. At this time, the patient is not an imminent safety risk and she is appropriate to be transferred to outpatient care. She was instructed to return back to the hospital if any acute safety concerns. MMODL / IJN: [id number] /
[2020-03-01] MEDS ORDERED: LURASIDONE 20 MG TAB PO SCH (09:00)
[2020-03-01] MEDS ORDERED: LORATADINE 10 MG TAB PO SCH (09:00)
[2020-03-01] MEDS: CALCIUM CARBONATE 500 MG CHEWABLE PO SCH (11:48)
[2020-03-01] MEDS: ASPIRIN 81 MG PO SCH (11:48)
[2020-03-01 11:51] VITALS: BP 149/92; PULSE 97; RESP 20; TEMP 98.8
== END 2020-03-01 17:25 | disposition home or self-care (01) | DRG 885 ==
LOC: EC 17:51 → 3MHU 21:26
PROVIDERS: ADMIT Psychiatry & Neurology Psychiatry; ATTEND Psychiatry & Neurology Psychiatry
DX: F31.64 Bipolar disorder, current episode mixed, severe, with psychotic features (principal); F41.0 Panic disorder [episodic paroxysmal anxiety]; F41.1 Generalized anxiety disorder; E66.3 Overweight; Z68.31 Body mass index [BMI] 31.0-31.9, adult; E78.5 Hyperlipidemia, unspecified; F79 Unspecified intellectual disabilities; H91.93 Unspecified hearing loss, bilateral; I10 Essential (primary) hypertension; M41.9 Scoliosis, unspecified; Z62.810 Personal history of physical and sexual abuse in childhood; Z79.899 Other long term (current) drug therapy; Z85.3 Personal history of malignant neoplasm of breast; Z90.12 Acquired absence of left breast and nipple; Z90.710 Acquired absence of both cervix and uterus; R20.2 Paresthesia of skin; G25.2 Other specified forms of tremor; R74.0 Nonspecific elevation of levels of transaminase and lactic acid dehydrogenase [LDH]; Z79.82 Long term (current) use of aspirin
CPT/HCPCS: 36415; 70450; 80053; 80061; 80320; 83036; 83735; 84443; 85025; 99285

== ENCOUNTER → 2020-06-22 | Outpatient (CLI) | payer MEDICARE ==
--- NOTE | 2020-06-22 11:49 | MM ---
Reason for exam: additional evaluation requested from prior study. Last mammogram was performed 1 year and 9 months ago. History: Patient is postmenopausal, has history of breast cancer at age 56, and has history of other cancer at age 42. Family history of breast cancer in aunt. Excisional biopsy of the right breast, 2012. Malignant mastectomy of the left breast, October 02, 2001. Silicone gel implant in the left breast, 2001. Took antineoplastic for 5 years. Physical Findings: Nurse did not find any significant physical abnormalities on exam. MG 3D Diag Mammo W/Cad RT CC and MLO view(s) were taken of the right breast. Prior study comparison: September 08, 2018, right breast MG diagnostic mammo RT w CAD. September 01, 2017, right breast MG diagnostic mammo RT w CAD. There are scattered fibroglandular densities. Previous mammotome biopsy in the right breast. No significant new findings when compared with previous films. These results were verbally communicated with the patient and result sheet given to the patient on 06/22/20. ASSESSMENT: Benign, BI-RAD 2 RECOMMENDATION: Routine screening mammogram of the right breast in 1 year.
== END | disposition home or self-care (01) ==
LOC: RADMAMWWP 11:02
PROVIDERS: ATTEND Family Medicine
DX: Z08 Encounter for follow-up examination after completed treatment for malignant neoplasm (principal); Z85.3 Personal history of malignant neoplasm of breast
CPT/HCPCS: 77065; G0279; 77061

== ENCOUNTER → 2020-10-10 | Outpatient (CLI) | payer MEDICARE ==
--- NOTE | 2020-10-10 16:28 | US ---
EXAMINATION TYPE: US kidneys/renal and bladder DATE OF EXAM: 10/10/2020 COMPARISON: 03/27/2017 CLINICAL HISTORY: 75-year-old female N28.1 kidney cyst, R94.4 abnormal kidney function study. Assess cyst, abn function TECHNIQUE: Multiple sonographic images of the kidneys and bladder are obtained. FINDINGS: EXAM MEASUREMENTS: Right Kidney: 9.8 x 4.8 x 5.1 cm Left Kidney: 12.3 x 4.4 x 4.9 cm Right Kidney: lobular contour that mimics a mass mid pole = 4.0 x 4.0 x 2.4cm . No hydronephrosis. Left Kidney: 3.3 x 2.7 x 2.9cm mid pole cyst seen. This may have a thin internal septation. Previous ly measured 2.5 x 2.3 cm. Continued annual surveillance recommended. No hydronephrosis. Bladder: wnl Bilateral Jets seen: no IMPRESSION: 1. No hydronephrosis. 2. A mildly complex cyst at the left midpole contains a thin internal septation and measures 3.3 x 2. 9 cm (versus 2.5 x 2.3 cm on 03/27/2017). 3. Masslike contour lobulation at the right midpole measuring 4.0 cm. Possible column of Elías or dr sandra dhaliwal. Contrast enhanced kidney MRI or CT recommended to exclude a mass. The left-sided cystic lesion can also be further characterized at that time.
== END | disposition home or self-care (01) ==
LOC: RADUSWWP 13:38
PROVIDERS: ATTEND Family Medicine
DX: N28.1 Cyst of kidney, acquired (principal)
CPT/HCPCS: 76770

== ENCOUNTER → 2021-05-15 | Outpatient (CLI) | payer MEDICARE ==
[2021-05-15 20:19] LABS: Appearance,Urine Clear (Clear); Bilirubin,Urine Negative (Negative); Blood,Urine Negative (Negative); Color,Urine Yellow; Glucose,Urine (UA) Negative (Negative); Hyaline Casts,Urine 14 /lpf (0-2); Ketones,Urine Negative (Negative); Leukocyte Esterase,Urine Small (Negative); Mucus,Urine Rare /hpf; Nitrite,Urine Negative (Negative); PH, Urine 6.5 (5.0-8.0); Protein,Urine Trace (Negative); RBC,Urine 1 /hpf (0-5); Squamous Epithelial Cell,Urine 1 /hpf (0-4); Urobilinogen,Urine <2.0 mg/dL (<2.0); WBC,Urine 2 /hpf (0-5)
[2021-05-15 23:13] LABS: Basophils # (A) 0.04 X 10*3/uL (0.00-0.10); Basophils % (A) 0.6 %; Eosinophils # (A) 0.08 X 10*3/uL (0.04-0.35); Eosinophils % (A) 1.2 %; HCT 43.6 % (37.2-46.3); HGB 13.8 g/dL (12.0-15.0); Lymphocytes # (A) 1.31 X 10*3/uL (0.90-5.00); Lymphocytes % (A) 19.4 %; MCH 30.2 pg (27.0-32.0); MCHC 31.7 g/dL (32.0-37.0); MCV 95.4 fL (80.0-97.0); Mean Platelet Volume 11.7 fL (9.5-12.2); Monocytes # (A) 0.48 X 10*3/uL (0.20-1.00); Monocytes % (A) 7.1 %; Neutrophils # (A) 4.83 X 10*3/uL (1.80-7.70); Neutrophils % (A) 71.4 %; Platelet Count 240 X 10*3/uL (140-440); RBC 4.57 X 10*6/uL (4.10-5.20); RDW 13.5 % (11.5-14.5); WBC 6.76 X 10*3/uL (4.50-10.00)
[2021-05-16 01:16] LABS: African American GFR (CKD) 76.5 (60.0-200.0); Albumin 4.4 g/dL (3.8-4.9); Albumin/Globulin Ratio 1.61 (1.60-3.17); Anion Gap 15.2 mmol/L (4.00-12.00); BUN/Creat Ratio 24.13 Ratio (12.00-20.00); Blood Urea Nitrogen 20.9 mg/dL (9.0-27.0); Calcium 9.4 mg/dL (8.7-10.3); Carbon Dioxide 23.2 mmol/L (21.6-31.8); Globulin 2.7 g/dL (1.6-3.3); Magnesium 2.1 mg/dL (1.5-2.4); Phosphorus 2.9 mg/dL (2.4-5.1); Potassium 3.8 mmol/L (3.5-5.5); Total Bilirubin 0.3 mg/dL (0.30-1.20); Total Protein 7.2 g/dL (6.2-8.2); Uric Acid 4.6 mg/dL (2.9-7.7)
== END | disposition home or self-care (01) ==
LOC: LABWHC1 16:06
PROVIDERS: ATTEND Internal Medicine
DX: N28.1 Cyst of kidney, acquired (principal); D64.9 Anemia, unspecified; N39.0 Urinary tract infection, site not specified; N25.81 Secondary hyperparathyroidism of renal origin; E55.9 Vitamin D deficiency, unspecified; M10.9 Gout, unspecified
CPT/HCPCS: 36415; 80053; 81001; 82306; 83735; 83970; 84100; 84550; 85025

== ENCOUNTER → 2021-07-10 | Outpatient (CLI) | payer MEDICARE | END | disposition home or self-care (01) | LOC: LABWHC1 14:32 | PROVIDERS: ATTEND Internal Medicine Interventional Cardiology | DX: E05.00 Thyrotoxicosis with diffuse goiter without thyrotoxic crisis or storm (principal) | CPT/HCPCS: 36415; 84443 ==

== ENCOUNTER → 2021-07-25 | Outpatient (CLI) | payer MEDICARE ==
--- NOTE | 2021-07-25 13:17 | CT ---
EXAMINATION TYPE: CT abdomen wo con DATE OF EXAM: 07/25/2021 COMPARISON: 05/16/2017, ultrasound 10/10/2020 HISTORY: Renal cyst. Previous history of breast cancer. CT DLP: 401.7 mGycm Automated exposure control for dose reduction was used. TECHNIQUE: Helical acquisition of images was performed from the lung bases through the top of iliac crest to include entire abdomen. CONTRAST: Performed without Oral Contrast and without IV contrast. FINDINGS: LUNG BASES: No significant abnormality is appreciated. LIVER/GB: Mild gallbladder distention. PANCREAS: No significant abnormality is seen. SPLEEN: 4.6 cm low-density lesion in the spleen most likely in the basis of a cyst measuring 15 cm bu t increased in size from prior exam. ADRENALS: No significant abnormality is seen. KIDNEYS: Left kidney: There is a posterior mid pole lesion measuring 2.6 cm and 2 Hounsfield units compatible with simple cyst. Tiny punctate calcification is noted. No hydronephrosis. Stable from prior exam. Right kidney: There is cortical loss involving the right kidney. No hydronephrosis. Single punctate c alcifications measuring 2 mm. BOWEL: Small hiatal hernia. Diverticulosis noted. LYMPH NODES: No significant abnormality is appreciated. OSSEOUS STRUCTURES: Hypertrophic and degenerative changes spine. FREE AIR: No free air is visualized. OTHER: Aorta of normal caliber with atherosclerotic changes. IMPRESSION: 1. Stable left renal simple appearing cyst measuring 2 Hounsfield units. 2. Cortical loss involving the right kidney suggestive of chronic medical renal disease. Appearance i s similar to the prior exam of 2016. 3. Increased size to the splenic lesion now measuring 4.6 cm and 15 Hounsfield units likely on the ba sis of a splenic cyst increasing in size.
== END | disposition home or self-care (01) ==
LOC: RADCTMAIN 12:42
PROVIDERS: ATTEND Urology
DX: N28.1 Cyst of kidney, acquired (principal); D73.89 Other diseases of spleen
CPT/HCPCS: 74150

== ENCOUNTER → 2021-09-10 | Outpatient (CLI) | payer MEDICARE ==
--- NOTE | 2021-09-10 15:11 | MM ---
Reason for exam: additional evaluation requested from prior study. Last mammogram was performed 1 year and 3 months ago. History: Patient is postmenopausal, has history of breast cancer at age 56, and has history of other cancer at age 42. Family history of breast cancer in aunt. Excisional biopsy of the right breast, 2012. Malignant mastectomy of the left breast, October 02, 2001. Silicone gel implant in the left breast, 2001. Took antineoplastic for 5 years. Physical Findings: Nurse did not find any significant physical abnormalities on exam. MG 3D Diag Mammo W/Cad RT CC and MLO view(s) were taken of the right breast. Prior study comparison: June 22, 2020, right breast MG 3d diag mammo w/cad RT. September 08, 2018, right breast MG diagnostic mammo RT w CAD. The breast tissue is heterogeneously dense. This may lower the sensitivity of mammography. Previous mammotome biopsy in the right breast. There is no discrete abnormality. No significant new findings when compared with previous films. These results were verbally communicated with the patient and result sheet given to the patient on 09/10/21. ASSESSMENT: Benign, BI-RAD 2 RECOMMENDATION: Follow-up diagnostic mammogram of the right breast in 1 year.
== END | disposition home or self-care (01) ==
LOC: RADMAMWWP 14:19
PROVIDERS: ATTEND Family Medicine
DX: R92.8 Other abnormal and inconclusive findings on diagnostic imaging of breast (principal); Z85.3 Personal history of malignant neoplasm of breast; Z78.0 Asymptomatic menopausal state; Z80.3 Family history of malignant neoplasm of breast
CPT/HCPCS: 77065; G0279; 77061

== ENCOUNTER → 2022-09-25 | Outpatient (CLI) | payer MEDICARE ==
--- NOTE | 2022-09-25 15:40 | CT ---
EXAMINATION TYPE: CT abdomen wo con DATE OF EXAM: 09/25/2022 HISTORY: renal mass. CT DLP: 624 mGycm. Automated Exposure Control for Dose Reduction was Utilized. TECHNIQUE: CT scan of the abdomen is performed without oral or IV contrast. COMPARISON: CT abdomen July 25, 2021 and older study 2017 FINDINGS: Within the limitations of a non-contrast study, the following observations are made. LUNG BASES: Left breast implant is partially imaged. LIVER/GB: No significant abnormality is appreciated. PANCREAS: No significant abnormality is seen. SPLEEN: There is stable 4.2 cm thin-walled cyst anteriorly in the spleen redemonstrated. ADRENALS: No significant abnormality is seen. KIDNEYS: Left kidney redemonstrates 3.2 cm thin-walled cyst from the lower pole level left kidney pos teriorly axial image 42. There is 2 mm punctate calcification or renal calculus medially midpole leve l right kidney coronal image 72 redemonstrated is prominent from prior. No new solid or cystic mass s een on noncontrast CT. No hydronephrosis seen bilaterally. BOWEL: Partial visualization of portions of normal-appearing appendix. There are diverticula in the l eft and visualized portion of the sigmoid colon. No CT evidence for acute diverticulitis. No suspicio us small or large bowel dilatation. Stable small sized hiatal hernia. LYMPH NODES: No greater than 1cm abdominal lymph nodes are appreciated. OSSEOUS STRUCTURES: No significant abnormality is seen. OTHER: No significant additional abnormality is seen. IMPRESSION: Stable 3.2 cm benign-appearing thin-walled cyst in the lower pole left kidney. No new mariluz id or cystic mass identified on noncontrast CT.
== END | disposition home or self-care (01) ==
LOC: RADCTMAIN 14:30
PROVIDERS: ATTEND Urology
DX: D41.01 Neoplasm of uncertain behavior of right kidney (principal); N28.1 Cyst of kidney, acquired
CPT/HCPCS: 74150

== ENCOUNTER → 2023-02-19 | Outpatient (CLI) | payer MEDICARE ==
--- NOTE | 2023-02-19 13:26 | XR ---
EXAMINATION TYPE: XR chest 2V DATE OF EXAM: 02/19/2023 1:20 PM COMPARISON: Chest radiographs from 12/28/2019 TECHNIQUE: XR chest 2V Frontal and lateral views of the chest. CLINICAL INDICATION:Female, 77 years old with history of R05.9; FINDINGS: Lungs/Pleura: There is no evidence of pleural effusion, focal consolidation, or pneumothorax. Chroni c senescent parenchyma changes. Pulmonary vascularity: Unremarkable. Heart/mediastinum: Cardiomediastinal silhouette is prominent in size. Musculoskeletal: Multiple level degenerative disc disease changes seen throughout the spine. Other findings: Surgical clips in the left axilla. IMPRESSION: No acute cardiopulmonary disease/process.
== END | disposition home or self-care (01) ==
LOC: RADXRMAIN 13:03
PROVIDERS: ATTEND Family Medicine
DX: R05.9 Cough, unspecified (principal)
CPT/HCPCS: 71046

== ENCOUNTER 2023-03-25 16:58 | Inpatient (IN) | payer MEDICARE ==
--- NOTE | 2023-03-25 17:01 | ED ---
General Adult HPI <David Richard - Last Filed: 03/25/23 17:06> <Barrie Cash - Last Filed: 03/25/23 21:00> - General Stated complaint: lung/heart sent by pcp - History of Present Illness Initial comments: 77-year-old female presenting to the ED with a chief complaint of dyspnea. Per daughter, for the past week has had dyspnea for the past week which has been p rogressively worsening in nature. She went into her PCPs today who sent the patient here for further evaluation. (HilaryDavid) This is a 77-year-old female presents emergency Department with her daughter. Daughter gives all the history because the patient according to the daughter has some mental retardation from . Daughter states that the patient's been complaining of left-sided abdominal pain for almost a week now she also has stated that she feels a little short of breath and has some lateral chest pain on the left. Patient has had no fever chills patient said no vomiting or diarrhea. There has been no lightheadedness dizziness or near syncopal episode. Daughter admits that it's hard to get a history from the patient because of her mental retardation but from the best she can tell these are the 2 areas of concern (Barrie Cash) - Related Data Home Medications Medication Instructions Recorded Confirmed Aspirin EC [Ecotrin Low Dose] 81 mg PO W/LUNCH 01/27/19 02/21/20 Calcium Carbonate [Calcium] 600 mg PO W/LUNCH 01/27/19 02/21/20 Garlic 1 tab PO W/LUNCH 01/27/19 02/21/20 Partlow-3 Fatty Acids/Fish Oil [Fish 1 cap PO W/LUNCH 01/27/19 02/21/20 Oil 1,000 mg Softgel] hydroCHLOROthiazide 25 mg PO DAILY 01/27/19 02/21/20 Pravastatin Sodium [Pravachol] 20 mg PO HS 02/21/20 02/21/20 lisinopriL 20 mg PO DAILY 02/21/20 02/21/20 Previous Rx's Medication Instructions Recorded ALPRAZolam [Xanax] 0.25 mg PO TID PRN 14 Days tab 03/01/20 Lurasidone [Latuda] 60 mg PO DAILY 14 Days tab 03/01/20 Mirtazapine [Remeron] 30 mg PO HS 14 Days tab 03/01/20 Allergies Allergy/AdvReac Type Severity Reaction Status Date / Time No Known Allergies Allergy Verified 03/25/23 17:04 Review of Systems ROS Other: All systems not noted in ROS Statement are negative. <HilaryDavid - Last Filed: 03/25/23 17:06> ROS Other: All systems not noted in ROS Statement are negative. <Barrie Cash - Last Filed: 03/25/23 21:00> ROS Statement: Those systems with pertinent positive or pertinent negative responses have been documented in the HPI. Past Medical History Past Medical History: Hyperlipidemia, Hypertension Additional Past Medical History / Comment(s): Psychological hx History of Any Multi-Drug Resistant Organisms: None Reported Past Surgical History: Hysterectomy Additional Past Surgical History / Comment(s): Mastectomy left side Past Anesthesia/Blood Transfusion Reactions: No Reported Reaction Past Psychological History: Anxiety, Bipolar, Panic Disorder Smoking Status: Never smoker Past Alcohol Use History: None Reported Past Drug Use History: None Reported <HilaryDavid - Last Filed: 03/25/23 17:06> General Exam Limitations: no limitations General appearance: alert Eye exam: Present: normal appearance Neck exam: Present: normal inspection Extremities exam: Present: normal inspection Back exam: Present: normal inspection Neurological exam: Present: alert <HilaryDavid - Last Filed: 03/25/23 17:06> <Barrie Cash - Last Filed: 03/25/23 21:00> - General Exam Comments Initial Comments: GENERAL: Patient is well-developed and well-nourished. Patient is nontoxic and well- hydrated and is in mild distress. ENT: Neck is soft and supple. No significant lymphadenopathy is noted. Oropharynx is clear. Moist mucous membranes. Neck has full range of motion without eliciting any pain. EYES: The sclera were anicteric and conjunctiva were pink and moist. Extraocular movements were intact and pupils were equal round and reactive to light. Eyelids were unremarkable. PULMONARY: Unlabored respirations. Good breath sounds bilaterally. No audible rales rhonchi or wheezing was noted. CARDIOVASCULAR: There is a regular rate and rhythm without any murmurs gallops or rubs. ABDOMEN: Patient has point tenderness on the left lateral lower quadrant SKIN: Skin is clear with no lesions or rashes and otherwise unremarkable. NEUROLOGIC: Patient is alert and oriented 2. Cranial nerves II through XII are grossly intact. Motor and sensory are also intact. Normal speech, volume and content. Symmetrical smile. MUSCULOSKELETAL: Normal extremities with adequate strength and full range of motion. LYMPHATICS: No significant lymphadenopathy is noted PSYCHIATRIC: Normal psychiatric evaluation. (Barrie Cash) Course Vital Signs 03/25/23 03/25/23 17:01 19:19 Temperature 98.4 F Pulse Rate 114 H 107 H Respiratory 20 20 Rate Blood Pressure 116/70 107/71 O2 Sat by Pulse 95 95 Oximetry Medical Decision Making <David Richard - Last Filed: 03/25/23 17:06> - Lab Data Result diagrams: 03/25/23 17:05 03/25/23 17:05 <Barrie Cash - Last Filed: 03/25/23 21:00> - Medical Decision Making Quicknote performed. Signed David Richard PA-C (David Richard) EKG was interpreted by myself EKG shows a sinus tachycardia with occasional PAC at a rate of 112 bpm MN interval is on a 58 QRS 122 QT interval 333 QTC is 399. Patient's EKG shows no ST segment elevation or depression. Was pt. sent in by a medical professional or institution ([facility], [facility], urgent care, hospital, or residential...) When possible be specific @ -No Did you speak to anyone other than the patient for history (EMS, parent, family, police, friend...)? What history was obtained from this source @ -Daughter gave all the history Did you review nursing and triage notes (agree or disagree)? Why? @ -I reviewed and agree with nursing and triage notes Were old charts reviewed (outside hosp., previous admission, EMS record, old EKG, old radiological studies, urgent care reports/EKG's, residential records)? Report findings @ -I reviewed prior lab work in prior charts and this patient Differential Diagnosis (chest pain, altered mental status, abdominal pain women, abdominal pain men, vaginal bleeding, weakness, fever, dyspnea, syncope, headache, dizziness, GI bleed, back pain, seizure, CVA, palpatations, mental health, musculoskeletal)? @ -Differential Abdominal Pain Women: Appendicitis, Cholecystitis, diverticulosis, ischemic bowel, pancreatitis, hepatitis, UTI, gastroenteritis, AAA, incarcerated hernia, bowel obstruction, constipation, inflammatory bowel, hepatitis, peptic ulcer disease, splenic infarction, perforated viscus, vulvitis, ovarian torsion, PID, kidney stone, lay centa abruption, this is not meant to be an all-inclusive list EKG interpreted by me (3pts min.). @ -As above X-rays interpreted by me (1pt min.). @ -Chest x-ray showed no acute abnormality CT interpreted by me (1pt min.). @ -CT of the chest showed no PE in no acute abnormality. CT of the abdomen and pelvis showed a possible left-sided abscess most probably from diverticulitis U/S interpreted by me (1pt. min.). @ -None done What testing was considered but not performed or refused? (CT, X-rays, U/S, labs)? Why? @ -None What meds were considered but not given or refused? Why? @ -None Did you discuss the management of the patient with other professionals (professionals i.e. , PA, [facility], lab, RT, psych nurse, child protective services social worker, refrigeration repair supervisor, teacher, staff submarine warfare officer, comp field case manager)? Give summary @ -I spoke with the [facility] and they agreed to admit the patient Was smoking cessation discussed for >3mins.? @ -No Was critical care preformed (if so, how long)? @ -No Were there social determinants of health that impacted care today? How? (Homelessness, low income, unemployed, alcoholism, drug addiction, transportation, low edu. Level, literacy, decrease access to med. care, m[facility], rehab)? @ -No Was there de-escalation of care discussed even if they declined (Discuss DNR or withdrawal of care, Hospice)? DNR status @ -No What co-morbidities impacted this encounter? (DM, HTN, Smoking, COPD, CAD, Cancer, CVA, ARF, Chemo, Hep., AIDS, mental health diagnosis, sleep apnea, morbid obesity)? @ -None Was patient admitted / discharged? Hospital course, mention meds given and route, prescriptions, significant lab abnormalities, going to OR and other pertinent info. @ -Patient had multiple CAT scans and they showed an abscess probably from diverticulitis I started patient on Zosyn I gave the patient pain medicine gave the patient fluids and patient will be admitted to [facility] consult surgery Undiagnosed new problem with uncertain prognosis? @ -No Drug Therapy requiring intensive monitoring for toxicity (Heparin, Nitro, Insulin, Cardizem)? @ -No Were any procedures done? @ -No Diagnosis/symptom? @ -Diverticulitis with abscess Acute, or Chronic, or Acute on Chronic? @ -Acute Uncomplicated (without systemic symptoms) or Complicated (systemic symptoms)? @ -Complicated Side effects of treatment? @ -No Exacerbation, Progression, or Severe Exacerbation? @ -No Poses a threat to life or bodily function? How? (Chest pain, [place], VA, pneumonia, PE, COPD, DKA, ARF, appy, cholecystitis, CVA, Diverticulitis, Homicidal, Suicidal, threat to staff... and all critical care pts) @ -Yes this could lead to sepsis and (Barrie Cash) - Lab Data Lab Results 03/25/23 03/25/23 03/25/23 Range/Units 17:05 17:05 17:05 WBC 18.8 H (3.8-10.6) k/uL RBC 4.00 (3.80-5.40) m/uL Hgb 12.5 (11.4-16.0) gm/dL Hct 38.3 (34.0-46.0) % MCV 95.9 (80.0-100.0) fL MCH 31.2 (25.0-35.0) pg MCHC 32.5 (31.0-37.0) g/dL RDW 14.4 (11.5-15.5) % Plt Count 276 (150-450) k/uL MPV 9.1 Neutrophils % 91 % Lymphocytes % 4 % Monocytes % 4 % Eosinophils % 1 % Basophils % 0 % Neutrophils # 17.0 H (1.3-7.7) k/uL Lymphocytes # 0.7 L (1.0-4.8) k/uL Monocytes # 0.8 (0-1.0) k/uL Eosinophils # 0.1 (0-0.7) k/uL Basophils # 0.0 (0-0.2) k/uL PT 9.8 (9.0-12.0) sec INR 0.9 (<1.2) APTT 25.7 (22.0-30.0) sec D-Dimer 4.17 H (<0.60) mg/L FEU Sodium 136 L (137-145) mmol/L Potassium 3.8 (3.5-5.1) mmol/L Chloride 104 (98-107) mmol/L Carbon Dioxide 21 L (22-30) mmol/L Anion Gap 11 mmol/L BUN 37 H (7-17) mg/dL Creatinine 1.17 H (0.52-1.04) mg/dL Est GFR (CKD-EPI)AfAm 53 (>60 ml/min/1.73 sqM) Est GFR (CKD-EPI)NonAf 46 (>60 ml/min/1.73 sqM) Glucose 163 H (74-99) mg/dL Plasma Lactic Acid Yahir (0.7-2.0) mmol/L Calcium 8.6 (8.4-10.2) mg/dL Total Bilirubin 0.8 (0.2-1.3) mg/dL AST 77 H (14-36) U/L ALT 42 H (4-34) U/L Alkaline Phosphatase 132 H (38-126) U/L Troponin I (0.000-0.034) ng/mL NT-Pro-B Natriuret Pep 326 pg/mL Total Protein 6.3 (6.3-8.2) g/dL Albumin 3.1 L (3.5-5.0) g/dL Amylase (30-110) U/L Lipase (23-300) U/L 03/25/23 03/25/23 03/25/23 Range/Units 17:05 19:30 19:30 WBC (3.8-10.6) k/uL RBC (3.80-5.40) m/uL Hgb (11.4-16.0) gm/dL Hct (34.0-46.0) % MCV (80.0-100.0) fL MCH (25.0-35.0) pg MCHC (31.0-37.0) g/dL RDW (11.5-15.5) % Plt Count (150-450) k/uL MPV Neutrophils % % Lymphocytes % % Monocytes % % Eosinophils % % Basophils % % Neutrophils # (1.3-7.7) k/uL Lymphocytes # (1.0-4.8) k/uL Monocytes # (0-1.0) k/uL Eosinophils # (0-0.7) k/uL Basophils # (0-0.2) k/uL PT (9.0-12.0) sec INR (<1.2) APTT (22.0-30.0) sec D-Dimer (<0.60) mg/L FEU Sodium (137-145) mmol/L Potassium (3.5-5.1) mmol/L Chloride (98-107) mmol/L Carbon Dioxide (22-30) mmol/L Anion Gap mmol/L BUN (7-17) mg/dL Creatinine (0.52-1.04) mg/dL Est GFR (CKD-EPI)AfAm (>60 ml/min/1.73 sqM) Est GFR (CKD-EPI)NonAf (>60 ml/min/1.73 sqM) Glucose (74-99) mg/dL Plasma Lactic Acid Yahir 1.2 (0.7-2.0) mmol/L Calcium (8.4-10.2) mg/dL Total Bilirubin (0.2-1.3) mg/dL AST (14-36) U/L ALT (4-34) U/L Alkaline Phosphatase (38-126) U/L Troponin I <0.012 (0.000-0.034) ng/mL NT-Pro-B Natriuret Pep pg/mL Total Protein (6.3-8.2) g/dL Albumin (3.5-5.0) g/dL Amylase 63 (30-110) U/L Lipase 125 (23-300) U/L Disposition <David Richard - Last Filed: 03/25/23 17:06> Time of Disposition: 21:00 <Barrie Cash - Last Filed: 03/25/23 21:00> Clinical Impression: Diverticulitis of intestine with abscess Disposition: ADMITTED IP TO THIS HOSP Referrals: Cookie Gupta MD [Primary Care Provider] - 1-2 days
[2023-03-25 17:26] LABS: Basophils % (A) 0 %; Eosinophils # (A) 0.1 k/uL (0-0.7); Eosinophils % (A) 1 %; HCT 38.3 % (34.0-46.0); HGB 12.5 gm/dL (11.4-16.0); Lymphocytes # (A) 0.7 k/uL (1.0-4.8); Lymphocytes % (A) 4 %; MCH 31.2 pg (25.0-35.0); MCHC 32.5 g/dL (31.0-37.0); MCV 95.9 fL (80.0-100.0); Mean Platelet Volume 9.1; Monocytes # (A) 0.8 k/uL (0-1.0); Monocytes % (A) 4 %; Neutrophils % (A) 91 %; Platelet Count 276 k/uL (150-450); RDW 14.4 % (11.5-15.5); WBC 18.8 k/uL (3.8-10.6)
[2023-03-25 17:39] LABS: ALT 42 U/L (4-34); AST 77 U/L (14-36); African American GFR (CKD) 53 (>60 ml/min/1.73 sqM); Albumin 3.1 g/dL (3.5-5.0); Alkaline Phosphatase 132 U/L (38-126); Anion Gap 11 mmol/L; Blood Urea Nitrogen 37 mg/dL (7-17); Calcium 8.6 mg/dL (8.4-10.2); Carbon Dioxide 21 mmol/L (22-30); Chloride 104 mmol/L (98-107); Glucose 163 mg/dL (74-99); Non-African American GFR(CKD) 46 (>60 ml/min/1.73 sqM); Potassium 3.8 mmol/L (3.5-5.1); Sodium 136 mmol/L (137-145); Total Bilirubin 0.8 mg/dL (0.2-1.3); Total Protein 6.3 g/dL (6.3-8.2)
[2023-03-25 17:47] LABS: NT-Pro-B-Type Natriuretic Pept 326 pg/mL
[2023-03-25 18:15] LABS: INR 0.9 (<1.2); Partial Thromboplastin Time 25.7 sec (22.0-30.0); Prothrombin Time 9.8 sec (9.0-12.0)
--- NOTE | 2023-03-25 18:28 | XR ---
EXAMINATION TYPE: XR chest 2V DATE OF EXAM: 03/25/2023 6:22 PM CLINICAL INDICATION:Female, 77 years old with history of difficulty breathing; [facility] COMPARISON: Chest radiographs from 02/19/2023 TECHNIQUE: XR chest 2V Frontal and lateral views of the chest. FINDINGS: Lungs/Pleura: There is no evidence of pleural effusion, focal consolidation, or pneumothorax. Pulmonary vascularity: Pulmonary vascular congestion. Heart/mediastinum: Cardiomediastinal silhouette is enlarged and stable. Musculoskeletal: No acute osseous pathology. Left axillary surgical clips. IMPRESSION: 1. No acute cardiopulmonary disease process. 2. COPD changes.
--- NOTE | 2023-03-25 20:08 | CT ---
EXAMINATION TYPE: CT abdomen pelvis w con CT DLP: 1729.7, mGycm, Automated exposure control for dose reduction was used. DATE OF EXAM: 03/25/2023 7:47 PM COMPARISON: CT abdomen pelvis most recent from 09/25/2022. CLINICAL INDICATION:Female, 77 years old with history of abdominal pain; SOB, elevated d-dimer and ab dominal tenderness TECHNIQUE: Axial CT of the abdomen and pelvis. Sagittal and coronal reformats were created on a [employer] workstation. Contrast used: mL of Isovue 370 with IV Contrast, (none if empty) Oral contrast used: without Oral Contrast (none if empty) FINDINGS: LIVER: Unremarkable GALLBLADDER AND BILE DUCTS: Dilated gallbladder. No inflammation changes or wall thickening of the ga llbladder. PANCREAS: Unremarkable. SPLEEN: Splenic cyst. ADRENAL GLANDS: Unremarkable. KIDNEYS AND URETERS: No evidence of hydronephrosis or renal calculus. The ureters are unremarkable. PELVIS BLADDER: Unremarkable REPRODUCTIVE: The uterus is surgically absent. ABDOMEN & PELVIS STOMACH AND BOWEL: No evidence of bowel obstruction. PERITONEUM/RETROPERITONEUM: No evidence of pneumoperitoneum there is new fluid collection the left lo wer quadrant which is somewhat bilobed measuring 8.4 x 3.5 x 2.2 cm in which extend down near adjacen t to the sigmoid colon on series 501 image 64 near what is thought to represent the left ovary. First additional phlegmonous change. VASCULATURE: No evidence of aortic aneurysm. MUSCULOSKELETAL: No acute osseous abnormalities LYMPH NODES: No gross evidence for lymphadenopathy. SOFT TISSUE/ABDOMINAL WALL: Fat-containing umbilical hernia.e IMPRESSION: Irregular shaped left lower quadrant fluid collection concerning for abscess. This is in close proxim ity to the sigmoid colon most pronounced in the left ovary. Unclear if it's sequela of diverticulitis which is new from 09/25/2022.
--- NOTE | 2023-03-25 20:15 | CT ---
EXAMINATION TYPE: CT chest angio for PE CT DLP: 1729.7 combined mGycm, Automated exposure control for dose reduction was used. DATE OF EXAM: 03/25/2023 7:48 PM COMPARISON: 12/28/2019 CLINICAL INDICATION:Female, 77 years old with history of Elevated d-dimer and shortness of breath; SO B, elevated d-dimer and abdominal tenderness TECHNIQUE/CONTRAST: CTA scan of the thorax is performed with IV Contrast, patient injected with 80ml mL of Isovue 370, DC P images are created and reviewed these are created on a separate workstation.. FINDINGS: Pulmonary Artery: There is no evidence for a filling defect within the pulmonary vasculature to sugge st acute pulmonary embolism. The pulmonary artery is of normal size. Lungs/Pleura: Low lung volumes are present. Trace bilateral fluid in the pleural space is suggested. No evidence of focal consolidation or pneumothorax. Airway: Large airways are patent. Heart: Heart is mildly enlarged for size. There is pulmonary vascular congestion. Vasculature: Mild atherosclerotic calcifications are present throughout the aorta and its branches. Mediastinum: No gross evidence of adenopathy. Musculoskeletal: Mild degenerative disc disease changes are present throughout the thoracolumbar spin e. Posterior back intramuscular lipoma measuring at least 8.8 x 3.8 cm. Soft Tissues: Left breast implant appears intact with capsular calcifications and possibly some adjac ent fluid more medially. Lower neck: No significant findings. Upper Abdomen: No significant findings. IMPRESSION: 1. No evidence of pulmonary embolism. 2. Low lung volumes with suspected pulmonary vascular congestion and cardiomegaly correlate with seru m BNP for congestive heart failure there may be trace bilateral pleural effusions.
[2023-03-25 20:16] LABS: Amylase 63 U/L (30-110); Lipase 125 U/L (23-300)
[2023-03-25] MEDS ORDERED: PIPERACILLIN-TAZOBACTAM 3.375 GM in SODIUM CHLORIDE 0.9% 100 ML IVPB STA (20:49)
[2023-03-25] MEDS ORDERED: HYDROmorphone 0.5 MG/0.5 ML SYRINGE IVP STA (20:56)
[2023-03-25] MEDS ORDERED: SODIUM CHLORIDE 0.9% 1,000 ML IV ONE ×2 (20:56→21:00)
[2023-03-25] MEDS ORDERED: SODIUM CHLORIDE 0.9% 500 ML 500 ML IV ONE (20:56)
[2023-03-25] MEDS ORDERED: ALBUTEROL NEBULIZED 2.5 MG/3 ML INHALATION PRN (23:13)
[2023-03-26] MEDS: MIRTAZAPINE 45 MG TABLET PO SCH ×2 (00:16→21:13)
[2023-03-26] MEDS: PRAVASTATIN SODIUM 20 MG TAB PO SCH ×2 (00:17→21:13)
[2023-03-26] MEDS: risperiDONE 1 MG TAB PO SCH ×2 (00:17→21:13)
[2023-03-26] MEDS: PIPERACILLIN-TAZOBACTAM 3.375 GM in SODIUM CHLORIDE 0.9% 100 ML IVPB SCH ×3 (06:59→19:40)
[2023-03-26] MEDS: METOPROLOL TARTRATE 25 MG TAB PO SCH ×2 (10:10→21:13)
[2023-03-26] MEDS: SERTRALINE 100 MG TAB PO SCH (10:10)
[2023-03-26] MEDS: allopurinoL 100 MG TAB PO SCH (10:10)
[2023-03-26 10:20] LABS: Basophils % (A) 0 %; Eosinophils # (A) 0.1 k/uL (0-0.7); Eosinophils % (A) 1 %; HCT 36.1 % (34.0-46.0); HGB 11.3 gm/dL (11.4-16.0); Hypochromasia Slight; Lymphocytes # (A) 0.8 k/uL (1.0-4.8); Lymphocytes % (A) 5 %; MCH 30.5 pg (25.0-35.0); MCHC 31.2 g/dL (31.0-37.0); MCV 97.9 fL (80.0-100.0); Mean Platelet Volume 9.1; Monocytes # (A) 0.6 k/uL (0-1.0); Monocytes % (A) 4 %; Neutrophils # (A) 12.4 k/uL (1.3-7.7); Neutrophils % (A) 89 %; Platelet Count 234 k/uL (150-450); RBC 3.69 m/uL (3.80-5.40); RDW 14.4 % (11.5-15.5)
[2023-03-26 10:32] LABS: African American GFR (CKD) 60 (>60 ml/min/1.73 sqM); Anion Gap 11 mmol/L; Blood Urea Nitrogen 32 mg/dL (7-17); Calcium 7.8 mg/dL (8.4-10.2); Carbon Dioxide 20 mmol/L (22-30); Chloride 107 mmol/L (98-107); Glucose 109 mg/dL (74-99); Non-African American GFR(CKD) 52 (>60 ml/min/1.73 sqM); Sodium 138 mmol/L (137-145)
--- NOTE | 2023-03-26 12:21 | P.GSCN ---
History of Present Illness Consult date: 03/26/23 History of present illness: CHIEF COMPLAINT: Abdominal pain HISTORY OF PRESENT ILLNESS: This is a 77-year-old female with a known history of mental disability. Patient's daughter is her guardian. History was obtained from the daughter. She reports that her mother has been complaining of left lower quadrant abdominal pain 3 days. Reports no bowel movement for about 5 days. She did have episode of vomiting on Friday. Patient also had presented with shortness of breath. Patient had a computed tomography scan abdomen and pelvis that had shown fluid collection in the left lower quadrant with concerns for abscess and unclear if it is sequelae of diverticulitis. Patient has no history of diverticulitis. The daughter reports last colonoscopy was 2 years ago and was unremarkable. Surgical history does include a hysterectomy. Patient denies any fevers. Did have evidence of leukocytosis and tachycardia on admission. Surgical service consulted for diverticulitis with abscess. PAST MEDICAL HISTORY: Hyperlipidemia, Hypertension, bipolar, anxiety PAST SURGICAL HISTORY: Hysterectomy, left mastectomy MEDICATIONS: See below ALLERGIES: See below SOCIAL HISTORY: No illicit drug use. REVIEW OF SYSTEMS: CONSTITUTIONAL: Denies fever or chills. HEENT: Denies blurred vision, vision changes, or eye pain. Denies hemoptysis CARDIOVASCULAR: Denies chest pain or pressure. RESPIRATORY: No shortness of breath. GASTROINTESTINAL: See HPI for pertinent findings HEMATOLOGIC: Denies bleeding disorders. GENITOURINARY: Denies any blood in urine or increased urinary frequency. SKIN: Denies pruitis. Denies rash. PHYSICAL EXAM: VITAL SIGNS: Reviewed GENERAL: Well-developed in no acute distress. ABDOMEN: Soft. Nondistended. Tenderness to palpation left lower quadrant NEUROLOGIC: Awake and alert LABORATORY DATA: WBC 18.8 down to 14 Hgb 11.3 platelets 234 Sodium 138 potassium 4.0 creatinine 1.05 Lactic acid 1.2 IMAGING: Computed tomography scan of the pelvis irregular shaped left lower quadrant fluid collection concerning for abscess. This is in close proximity to the sigmoid colon most pronounced in the left ovary. Unclear if it sequelae of diverticulitis. CT of chest no evidence of pulmonary was on. Low lung volumes with suspected pulmonary vascular congestion and cardiomegaly. ASSESSMENT: 1. Left lower quadrant abdominal pain with evidence of fluid collection on CAT scan concerning of abscess and possibly due to diverticulitis PLAN: -Consult interventional radiology for drainage of diverticular abscess -Continue IV antibiotics -Keep patient nothing by mouth -Continue IV fluids -Repeat CBC and BMP in a.m. -DVT prophylaxis subcu heparin Thank you for this consultation [facility] note has been reviewed by physician. Signing provider agrees with the documented findings, assessment, and plan of care. Past Medical History Past Medical History: Hyperlipidemia, Hypertension Additional Past Medical History / Comment(s): Psychological hx History of Any Multi-Drug Resistant Organisms: None Reported Past Surgical History: Hysterectomy Additional Past Surgical History / Comment(s): Mastectomy left side Past Anesthesia/Blood Transfusion Reactions: No Reported Reaction Past Psychological History: Anxiety, Bipolar, Panic Disorder Smoking Status: Never smoker Past Alcohol Use History: None Reported Past Drug Use History: None Reported Medications and Allergies Home Medications Medication Instructions Recorded Confirmed Type Pravastatin Sodium [Pravachol] 20 mg PO HS 02/21/20 03/25/23 History lisinopriL 20 mg PO DAILY 02/21/20 03/25/23 History Albuterol Sulfate [Ventolin HFA] 2 puff INHALATION RT-QID PRN 03/25/23 03/25/23 History Metoprolol Tartrate [Lopressor] 25 mg PO BID 03/25/23 03/25/23 History Mirtazapine [Remeron] 45 mg PO HS 03/25/23 03/25/23 History Sertraline [Zoloft] 100 mg PO DAILY 03/25/23 03/25/23 History allopurinoL 100 mg PO DAILY 03/25/23 03/25/23 History risperiDONE [RisperDAL] 1 mg PO HS 03/25/23 03/25/23 History Allergies Allergy/AdvReac Type Severity Reaction Status Date / Time No Known Allergies Allergy Verified 03/25/23 17:04 Surgical - Exam Vital Signs Temp Pulse Resp BP Pulse Ox 98.4 F 114 H 20 116/70 95 03/25/23 17:01 03/25/23 17:01 03/25/23 17:01 03/25/23 17:01 03/25/23 17:01 Results - Labs 03/26/23 10:01 03/26/23 10:01 Abnormal Lab Results - Last 24 Hours (Table) 03/25/23 03/25/23 03/25/23 Range/Units 17:05 17:05 17:05 WBC 18.8 H (3.8-10.6) k/uL RBC (3.80-5.40) m/uL Hgb (11.4-16.0) gm/dL Neutrophils # 17.0 H (1.3-7.7) k/uL Lymphocytes # 0.7 L (1.0-4.8) k/uL D-Dimer 4.17 H (<0.60) mg/L FEU Sodium 136 L (137-145) mmol/L Carbon Dioxide 21 L (22-30) mmol/L BUN 37 H (7-17) mg/dL Creatinine 1.17 H (0.52-1.04) mg/dL Glucose 163 H (74-99) mg/dL Calcium (8.4-10.2) mg/dL AST 77 H (14-36) U/L ALT 42 H (4-34) U/L Alkaline Phosphatase 132 H (38-126) U/L Albumin 3.1 L (3.5-5.0) g/dL 03/26/23 03/26/23 Range/Units 10:01 10:01 WBC 14.0 H (3.8-10.6) k/uL RBC 3.69 L (3.80-5.40) m/uL Hgb 11.3 L (11.4-16.0) gm/dL Neutrophils # 12.4 H (1.3-7.7) k/uL Lymphocytes # 0.8 L (1.0-4.8) k/uL D-Dimer (<0.60) mg/L FEU Sodium (137-145) mmol/L Carbon Dioxide 20 L (22-30) mmol/L BUN 32 H (7-17) mg/dL Creatinine 1.05 H (0.52-1.04) mg/dL Glucose 109 H (74-99) mg/dL Calcium 7.8 L (8.4-10.2) mg/dL AST (14-36) U/L ALT (4-34) U/L Alkaline Phosphatase (38-126) U/L Albumin (3.5-5.0) g/dL Diabetes panel 03/25/23 03/26/23 Range/Units 17:05 10:01 Sodium 136 L 138 (137-145) mmol/L Potassium 3.8 4.0 (3.5-5.1) mmol/L Chloride 104 107 (98-107) mmol/L Carbon Dioxide 21 L 20 L (22-30) mmol/L BUN 37 H 32 H (7-17) mg/dL Creatinine 1.17 H 1.05 H (0.52-1.04) mg/dL Glucose 163 H 109 H (74-99) mg/dL Calcium 8.6 7.8 L (8.4-10.2) mg/dL AST 77 H (14-36) U/L ALT 42 H (4-34) U/L Alkaline Phosphatase 132 H (38-126) U/L Total Protein 6.3 (6.3-8.2) g/dL Albumin 3.1 L (3.5-5.0) g/dL Calcium panel 03/25/23 03/26/23 Range/Units 17:05 10:01 Calcium 8.6 7.8 L (8.4-10.2) mg/dL Albumin 3.1 L (3.5-5.0) g/dL Pituitary panel 03/25/23 03/26/23 Range/Units 17:05 10:01 Sodium 136 L 138 (137-145) mmol/L Potassium 3.8 4.0 (3.5-5.1) mmol/L Chloride 104 107 (98-107) mmol/L Carbon Dioxide 21 L 20 L (22-30) mmol/L BUN 37 H 32 H (7-17) mg/dL Creatinine 1.17 H 1.05 H (0.52-1.04) mg/dL Glucose 163 H 109 H (74-99) mg/dL Calcium 8.6 7.8 L (8.4-10.2) mg/dL Adrenal panel 03/25/23 03/26/23 Range/Units 17:05 10:01 Sodium 136 L 138 (137-145) mmol/L Potassium 3.8 4.0 (3.5-5.1) mmol/L Chloride 104 107 (98-107) mmol/L Carbon Dioxide 21 L 20 L (22-30) mmol/L BUN 37 H 32 H (7-17) mg/dL Creatinine 1.17 H 1.05 H (0.52-1.04) mg/dL Glucose 163 H 109 H (74-99) mg/dL Calcium 8.6 7.8 L (8.4-10.2) mg/dL Total Bilirubin 0.8 (0.2-1.3) mg/dL AST 77 H (14-36) U/L ALT 42 H (4-34) U/L Alkaline Phosphatase 132 H (38-126) U/L Total Protein 6.3 (6.3-8.2) g/dL Albumin 3.1 L (3.5-5.0) g/dL
[2023-03-26] MEDS: HYDROmorphone 0.5 MG/0.5 ML SYRINGE IVP PRN (14:16)
--- NOTE | 2023-03-26 15:40 | CT ---
EXAMINATION TYPE: CT guided abscess drainage DATE OF EXAM: 03/26/2023 COMPARISON: 03/25/2023 HISTORY: Abdominal abscess with drainage tube insertion CT DLP: 1975 mGycm The procedure is discussed with the patient, the risks, complications, benefits and alternatives, wer e discussed and any questions were answered. Informed consent was obtained. The patient is placed s upine on the CT table, prepped and draped in the usual sterile fashion. Utilizing a 22-gauge Chiba needle access into left abdominal fluid collection was achieved with passa ge of 0.018 wire. Conversion to 0.035 system, serial dilation to 8 [place] and placement of an 8 Frenc h drainage catheter. Repeat imaging demonstrated ideal placement catheter. Samples sent to pathology for analysis.. All elements of maximal barrier and sterile technique were utilized. The patient rem ained stable throughout the procedure with no immediate postprocedural complication. IMPRESSION: 1. Successful CT guided left abdominal abscess drainage catheter insertion.
[2023-03-26] MEDS: HEPARIN SODIUM,PORCINE 5,000 UNIT/ML 1 ML VIAL SQ SCH ×2 (16:36→23:28)
--- NOTE | 2023-03-26 21:45 | P.HPIM ---
History of Present Illness H&P Date: 03/26/23 Chief Complaint: Abdominal pain Patient is a 77-year-old female with a known history of hypertension, hyperlipidemia, anxiety/bipolar disorder and mentally challenged was brought to ER by her daughter who is her guardian. Patient could not provide much history at this time. According to the family members she has been having abdominal pain mainly left lower quadrant since last Friday, about 3 to 4 days. Denies any fever or chills. On admission patient was tachycardic with heart rate 114. Patient also felt dyspneic. Denies any leg swelling. No dizziness or lighthe adedness. Chest x-ray showed no acute cardiopulmonary process/disease. COPD changes. EKG showed sinus tachycardia. Occasional supraventricular premature complexes. CT of the abdomen pelvis showed irregular shaped left lower quadrant fluid collection concerning for abscess. This is in close proximity to the sigmoid colon most pronounced in the left ovary. Unclear if it is a sequela of diverticulitis which is new from 09/25/2022. CTA chest showed no evidence of PE. Low lung volumes with suspected pulmonary vascular congestion and cardiomegaly correlate with serum BNP for congestive heart failure there may be trace bilateral pleural effusions. Laboratory data showed WBC of 18.8 hemoglobin 12.5 and platelets 276 D-dimer level is 4.17 Sodium 136 potassium 3.8 chloride 104 bicarb is 21 BUN 37 creatinine 1.17 Blood sugar is 163 and lactic acid 1.2 liver enzymes showed AST 77 ALT 42 and alk phos 132. Bilirubin 0.8. Amylase and lipase not elevated proBNP 326 and troponin less than 0.012. Review of Systems ROS unobtainable: due to mental status Past Medical History Past Medical History: Hyperlipidemia, Hypertension Additional Past Medical History / Comment(s): Psychological hx History of Any Multi-Drug Resistant Organisms: None Reported Past Surgical History: Hysterectomy Additional Past Surgical History / Comment(s): Mastectomy left side Past Anesthesia/Blood Transfusion Reactions: No Reported Reaction Past Psychological History: Anxiety, Bipolar, Panic Disorder Smoking Status: Never smoker Past Alcohol Use History: None Reported Past Drug Use History: None Reported Medications and Allergies Home Medications Medication Instructions Recorded Confirmed Type Pravastatin Sodium [Pravachol] 20 mg PO HS 02/21/20 03/25/23 History lisinopriL 20 mg PO DAILY 02/21/20 03/25/23 History Albuterol Sulfate [Ventolin HFA] 2 puff INHALATION RT-QID PRN 03/25/23 03/25/23 History Metoprolol Tartrate [Lopressor] 25 mg PO BID 03/25/23 03/25/23 History Mirtazapine [Remeron] 45 mg PO HS 03/25/23 03/25/23 History Sertraline [Zoloft] 100 mg PO DAILY 03/25/23 03/25/23 History allopurinoL 100 mg PO DAILY 03/25/23 03/25/23 History risperiDONE [RisperDAL] 1 mg PO HS 03/25/23 03/25/23 History Allergies Allergy/AdvReac Type Severity Reaction Status Date / Time No Known Allergies Allergy Verified 03/25/23 17:04 Physical Exam Vitals: Vital Signs Temp Pulse Resp BP Pulse Ox 03/25/23 22:35 107 H 18 123/86 95 03/25/23 21:27 108 H 20 146/79 95 03/25/23 19:19 107 H 20 107/71 95 03/25/23 17:01 98.4 F 114 H 20 116/70 95 Intake and Output 03/25/23 03/26/23 03/26/23 22:59 06:59 14:59 Other: Weight 86.183 kg PHYSICAL EXAMINATION: Patient is lying in the bed comfortably, no acute distress, awake alert and able to follow simple commands... HEENT: Normocephalic. Neck is supple. Pupils reactive. Nostrils clear. Oral cavity is moist. Neck reveals no JVD, carotid bruits, or thyromegaly. CHEST EXAMINATION: Trachea is central. Symmetrical expansion. Bibasilar diminished sounds. No wheezing or rhonchi.. CARDIAC: Normal S1, S2 with no gallops. No murmurs ABDOMEN: Soft. Bowel sounds present. Left lower quadrant tenderness. No guarding or rigidity.. No organomegaly. No abdominal bruits. Extremities: reveal no edema. No clubbing or cyanosis Neurologically awake, alert,. Mentally challenged. No gross focal deficits noted Skin: No rash or skin lesions. Psychiatric: Coperative. Could not be assessed completely., Musculoskeletal: No joint swelling or deformity. Normal range of motion. Results CBC & Chem 7: 03/26/23 10:01 03/26/23 10:01 Labs: Abnormal Lab Results - Last 24 Hours (Table) 03/25/23 03/25/23 03/25/23 Range/Units 17:05 17:05 17:05 WBC 18.8 H (3.8-10.6) k/uL Neutrophils # 17.0 H (1.3-7.7) k/uL Lymphocytes # 0.7 L (1.0-4.8) k/uL D-Dimer 4.17 H (<0.60) mg/L FEU Sodium 136 L (137-145) mmol/L Carbon Dioxide 21 L (22-30) mmol/L BUN 37 H (7-17) mg/dL Creatinine 1.17 H (0.52-1.04) mg/dL Glucose 163 H (74-99) mg/dL AST 77 H (14-36) U/L ALT 42 H (4-34) U/L Alkaline Phosphatase 132 H (38-126) U/L Albumin 3.1 L (3.5-5.0) g/dL Thrombosis Risk Factor Assmnt - DVT/VTE Prophylaxis DVT/VTE Prophylaxis: Pharmacologic Prophylaxis ordered Assessment and Plan Assessment: Left lower quadrant fluid collection/abscess in close proximity to the sigmoid colon. Possible sequelae of diverticulitis. Sepsis secondary to intra-abdominal abscess. Dyspnea with pulmonary vascular congestion and trace effusion. proBNP not elevated. No leg swelling. CTA negative for PE. Hypovolemic hyponatremia Mild transaminitis Hypertension Hyperlipidemia Anxiety/bipolar disorder and panic disorder Mentally challenged DVT prophylaxis with heparin subcu Plan: Patient will be continued on gentle IV hydration. Continue with antibiotics in the form of Zosyn and continue with pain management. Follow-up CBC and BMP. General surgery is on board. Continue to follow closely . Discussed with patient's daughter at bedside in detail. Time with Patient: Greater than 30
[2023-03-26] MEDS: SODIUM CHLORIDE 0.9% 1,000 ML IV SCH (23:29)
[2023-03-27] MEDS ORDERED: VANCOMYCIN IV PER PHARMACY 1 EACH MISC MISCELLANE PRN
[2023-03-27] MEDS ORDERED: VANCOMYCIN 1,500 MG in SODIUM CHLORIDE 0.9% 500 ML 500 ML IVPB ONE (01:00)
[2023-03-27] MEDS: PIPERACILLIN-TAZOBACTAM 3.375 GM in SODIUM CHLORIDE 0.9% 100 ML IVPB SCH ×3 (04:32→23:00)
[2023-03-27] MEDS: METOPROLOL TARTRATE 25 MG TAB PO SCH ×2 (08:42→23:00)
[2023-03-27] MEDS: HEPARIN SODIUM,PORCINE 5,000 UNIT/ML 1 ML VIAL SQ SCH ×2 (08:42→16:57)
[2023-03-27] MEDS: allopurinoL 100 MG TAB PO SCH (08:42)
[2023-03-27] MEDS: SERTRALINE 100 MG TAB PO SCH (08:42)
[2023-03-27] MEDS: HYDROmorphone 0.5 MG/0.5 ML SYRINGE IVP PRN (08:51)
[2023-03-27 10:57] LABS: Basophils # (A) 0.07 X 10*3/uL (0.00-0.10); Basophils % (A) 0.6 %; Eosinophils # (A) 0.25 X 10*3/uL (0.04-0.35); Eosinophils % (A) 2.2 %; HCT 33.4 % (37.2-46.3); HGB 10.5 d/dL (12.0-15.0); Lymphocytes # (A) 0.83 X 10*3/uL (0.90-5.00); Lymphocytes % (A) 7.3 %; MCH 30.2 pg (27.0-32.0); MCHC 31.4 d/dL (32.0-37.0); Mean Platelet Volume 11.4 FL (9.5-12.2); Monocytes # (A) 0.75 X 10*3/uL (0.20-1.00); Monocytes % (A) 6.6 %; NRBC Per 100 WBC 0 X 10*3/uL (0.00-0.01); Neutrophils # (A) 9.28 X 10*3/uL (1.80-7.70); Neutrophils % (A) 81.7 %; Platelet Count 277 X 10*3/uL (140-440); RBC 3.48 X 10*6/uL (4.10-5.20); RDW 15.3 % (11.5-14.5); WBC 11.36 X 10*3/uL (4.50-10.00)
[2023-03-27 11:08] LABS: ALT 110 U/L (8-44); AST 141 U/L (13-35); Albumin 2.7 d/dL (3.8-4.9); Albumin/Globulin Ratio 1.08 Ratio (1.60-3.17); Alkaline Phosphatase 157 U/L (41-126); BUN/Creat Ratio 26.33 Ratio (12.00-20.00); Blood Urea Nitrogen 23.7 mg/dL (9.0-27.0); Calcium 7.8 mg/dL (8.7-10.3); Carbon Dioxide 20.7 mmol/L (21.6-31.8); Chloride 106 mmol/L (96-109); Globulin 2.5 d/dL (1.6-3.3); Glucose 100 mg/dL (70-110); Potassium 3.6 mmol/L (3.5-5.5); Sodium 139 mmol/L (135-145); Total Bilirubin 0.8 mg/dL (0.3-1.2); Total Protein 5.2 d/dL (6.2-8.2)
--- NOTE | 2023-03-27 12:58 | P.PN ---
Subjective Progress Note Date: 03/27/23 CHIEF COMPLAINT: Diverticulitis abscess HISTORY OF PRESENT ILLNESS: Patient is status post CT-guided drainage. Output is yellowish in color. Afebrile. She has positive blood cultures. Afebrile. WBC is down from 14-11.36. Patient reports her pain has improved. She denies any nausea or vomiting. She tolerated clear liquids. PHYSICAL EXAM: VITAL SIGNS: Reviewed. GENERAL: Well-developed in no acute distress. ABDOMEN: Soft. Nondistended. Nontender. Drain in place with serous drainage NEUROLOGIC: Alert and oriented. Cranial nerves II through XII grossly intact. ASSESSMENT: 1. Diverticulitis with abscess status post CT-guided drainage of abscess PLAN: -Advance diet to full liquids and then as tolerated -Continue antibiotics. Agree with ID consult -Continue to monitor CBC -Elevated LFTs. Repeat CMP in a.m. Physician Repair Armature Winder note has been reviewed by physician. Signing provider agrees with the documented findings, assessment, and plan of care. Objective - Vital Signs Vital signs: Vital Signs Temp 98.2 F 03/27/23 01:13 Pulse 90 03/27/23 07:50 Resp 18 03/27/23 07:50 BP 126/69 03/27/23 07:50 Pulse Ox 94 L 03/27/23 07:50 FiO2 Intake & Output 03/26/23 03/27/23 03/27/23 18:59 06:59 18:59 Output Total 0 Balance 0 Weight 86.183 kg Output: Urine 0 Other: Voiding Method Toilet Toilet # Voids 1 - Labs CBC & Chem 7: 03/27/23 06:44 03/27/23 06:44 Labs: Abnormal Lab Results - Last 24 Hours (Table) 03/27/23 03/27/23 Range/Units 06:44 06:44 WBC 11.36 H (4.50-10.00) X 10*3/uL RBC 3.48 L (4.10-5.20) X 10*6/uL Hgb 10.5 L (12.0-15.0) d/dL Hct 33.4 L (37.2-46.3) % MCHC 31.4 L (32.0-37.0) d/dL RDW 15.3 H (11.5-14.5) % Neutrophils # 9.28 H (1.80-7.70) X 10*3/uL Lymphocytes # 0.83 L (0.90-5.00) X 10*3/uL Carbon Dioxide 20.7 L (21.6-31.8) mmol/L Anion Gap 12.30 H (4.00-12.00) mmol/L BUN/Creatinine Ratio 26.33 H (12.00-20.00) Ratio Calcium 7.8 L (8.7-10.3) mg/dL AST 141 H (13-35) U/L ALT 110 H (8-44) U/L Alkaline Phosphatase 157 H (41-126) U/L Total Protein 5.2 L (6.2-8.2) d/dL Albumin 2.7 L (3.8-4.9) d/dL Albumin/Globulin Ratio 1.08 L (1.60-3.17) Ratio Microbiology - Last 24 Hours (Table) 03/25/23 21:25 Blood Culture Gram Stain - Preliminary Blood 03/25/23 21:10 Blood Culture Gram Stain - Preliminary Blood
--- NOTE | 2023-03-27 16:02 | P.PN ---
Subjective Progress Note Date: 03/27/23 Patient is a 77-year-old female with a known history of hypertension, hyperlipidemia, anxiety/bipolar disorder and mentally challenged was brought to ER by her daughter who is her guardian. Patient could not provide much history at this time. According to the family members she has been having abdominal pain mainly left lower quadrant since last Friday, about 3 to 4 days. Denies any fever or chills. On admission patient was tachycardic with heart rate 114. Patient also felt dyspneic. Denies any leg swelling. No dizziness or lightheadedness. Chest x-ray showed no acute cardiopulmonary process/disease. COPD changes. EKG showed sinus tachycardia. Occasional supraventricular premature complexes. CT of the abdomen pelvis showed irregular shaped left lower quadrant fluid collection concerning for abscess. This is in close proximity to the sigmoid colon most pronounced in the left ovary. Unclear if it is a sequela of diverticulitis which is new from 09/25/2022. CTA chest showed no evidence of PE. Low lung volumes with suspected pulmonary vascular congestion and cardiomegaly correlate with serum BNP for congestive heart failure there may be trace bilateral pleural effusions. Laboratory data showed WBC of 18.8 hemoglobin 12.5 and platelets 276 D-dimer level is 4.17 Sodium 136 potassium 3.8 chloride 104 bicarb is 21 BUN 37 creatinine 1.17 Blood sugar is 163 and lactic acid 1.2 liver enzymes showed AST 77 ALT 42 and alk phos 132. Bilirubin 0.8. Amylase and lipase not elevated proBNP 326 and troponin less than 0.012. 03/27/2023 Patient is seen and evaluated in follow-up this morning currently sitting up in the chair with daughter at the bedside. Patient reports she's been having some loose stools and denies any abdominal pain. Patient is status post interventional radiology guided drain for diverticular abscess. On exam the drainage appears to be urine and infectious disease is following and is being sent for urinalysis with culture. There is concerns for a fistula and will discuss further with infectious disease. White count is trending down nicely and is currently 11.36 today, hemoglobin is stable at 10.5. Kidney functions improved with a creatinine of 0.9 and potassium is 3.6. Liver functions are elevated and will hold statin. Other medications have been reviewed. Review of systems: Constitutional: No reports of fatigue, fever, or chills Cardiovascular: No reports of chest pain or palpitations Respiratory: No reports of shortness of breath or cough GI: No reports of nausea, no vomiting, reports loose stool today : No reports of dysuria or retention Neurovascular: reports of generalized weakness All medications have been reviewed PHYSICAL EXAMINATION: Patient is sitting up in the chair, no acute distress, awake alert and able to follow simple commands... Obese HEENT: Normocephalic. Neck is supple. Pupils reactive. Nostrils clear. Oral cavity is moist. Neck reveals no JVD, carotid bruits, or thyromegaly. CHEST EXAMINATION: Trachea is central. Symmetrical expansion. Bibasilar diminished sounds. No wheezing or rhonchi.. CARDIAC: Normal S1, S2 with no gallops. No murmurs ABDOMEN: Soft. Bowel sounds present. No Left lower quadrant tenderness noted on palpation and there is a drain noted with clear yellow urine in the bag. No guarding or rigidity.. No organomegaly. No abdominal bruits. Extremities: reveal no edema. No clubbing or cyanosis Neurologically awake, alert,. Mentally challenged. No gross focal deficits n oted Skin: No rash or skin lesions. Psychiatric: Cooperative. Could not be assessed completely., Musculoskeletal: No joint swelling or deformity. Normal range of motion. Assessment: Left lower quadrant fluid collection/abscess in close proximity to the sigmoid colon. Possible sequelae of diverticulitis. Sepsis secondary to intra-abdominal abscess. Present on admission Bacteremia secondary to above Dyspnea with pulmonary vascular congestion and trace effusion. proBNP not elevated. No leg swelling. CTA negative for PE. Hypovolemic hyponatremia Mild transaminitis Hypertension Hyperlipidemia Obesity with a body mass index of 34.8 Anxiety/bipolar disorder and panic disorder Mentally challenged DVT prophylaxis with heparin subcu GI prophylaxis Full code Plan: Patient will be continued on gentle IV hydration. Continue with antibiotics in the form of Zosyn and infectious disease consulted. Patient is status post IR CT-guided drainage of this intra-abdominal abscess. The drainage bag appears to have urine which is sent for urinalysis with culture with concerns of fistula Repeat labs showing white count is improving kidney functions are stable and potassium is 3.6. Patient being advanced diet per surgery recommendations Patient does have mildly elevated LFTs and will hold statin therapy and follow- up with repeat labs PT/OT therapy to evaluate Awaiting cultures to determine appropriate antibiotics. Blood cultures are positive and will need to continue with blood cultures to monitor for clearance of bacteremia. Due to multiple complex medical issues, prognosis is guarded The impression and plan of care has been dictated by Amber Johnson Nurse Pract itioner as directed. Dr. Rhona MD I have performed a history and examination and MDM of this patient, discussed the same with the dictator, and agree with the dictator's assessment and plan as written ,documented as a scribe. Based on total visit time, I have performed more than 50% of the visit. Objective - Vital Signs Vital signs: Vital Signs Temp 98.2 F 03/27/23 01:13 Pulse 90 03/27/23 07:50 Resp 18 03/27/23 07:50 BP 126/69 03/27/23 07:50 Pulse Ox 94 L 03/27/23 07:50 FiO2 Intake & Output 03/26/23 03/27/23 03/27/23 18:59 06:59 18:59 Output Total 0 Balance 0 Weight 86.183 kg Output: Urine 0 Other: Voiding Method Toilet # Voids 1 - Labs CBC & Chem 7: 03/27/23 06:44 03/27/23 06:44 Labs: Abnormal Lab Results - Last 24 Hours (Table) 03/26/23 03/26/23 Range/Units 10:01 10:01 WBC 14.0 H (3.8-10.6) k/uL RBC 3.69 L (3.80-5.40) m/uL Hgb 11.3 L (11.4-16.0) gm/dL Neutrophils # 12.4 H (1.3-7.7) k/uL Lymphocytes # 0.8 L (1.0-4.8) k/uL Carbon Dioxide 20 L (22-30) mmol/L BUN 32 H (7-17) mg/dL Creatinine 1.05 H (0.52-1.04) mg/dL Glucose 109 H (74-99) mg/dL Calcium 7.8 L (8.4-10.2) mg/dL Microbiology - Last 24 Hours (Table) 03/25/23 21:25 Blood Culture Gram Stain - Preliminary Blood 03/25/23 21:10 Blood Culture Gram Stain - Preliminary Blood
--- NOTE | 2023-03-27 21:50 | P.CONS ---
History of Present Illness - Reason for Consult Consult date: 03/27/23 - History of Present Illness Patient is a 77-year-old female with a past medical his significant for hypertension hyperlipidemia anxiety bipolar disorder presenting to the hospital 2 days ago for evaluation of left-sided abdominal pain apparently has been getting worse for the last 1 week patient apparent was getting more short of breath and was having some chest pain as well no clear history of any fever or any chills no nausea no vomiting no diarrhea or constipation on presentation to the hospital patient was afebrile and no fever recorded subsequently patient was not tachycardic hypotensive or hypoxic she did have vital of 18.8 with a left shift did have elevated BUN/creatinine mild elevated liver enzymes patient did have a CT of abdominal pelvis which did shows irregular shaped left lower quadrant fluid collection concerning for abscess close proximity to the sigmoid colon most pronounced in the left ovary and concerning for Sequent of diverticulitis patient did have a CT angiogram of the chest that was negative for PE low lung volumes suspected pulmonary vascular congestion patient did have a CT-guided drainage of this fluid collection which has been sent for culture however the fluid looks mostly urine patient has been treated with Zosyn the blood cultures coming back positive with gram-positive cocci vancomycin was added infectious disease was consulted for further management of antibiotic therapy most information has been obtained from review of the chart talking nursing staff patient did provided some phone formation but not a medical records director Past Medical History Past Medical History: Hyperlipidemia, Hypertension Additional Past Medical History / Comment(s): Psychological hx History of Any Multi-Drug Resistant Organisms: None Reported Past Surgical History: Hysterectomy Additional Past Surgical History / Comment(s): Mastectomy left side Past Anesthesia/Blood Transfusion Reactions: No Reported Reaction Past Psychological History: Anxiety, Bipolar, Panic Disorder Smoking Status: Never smoker Past Alcohol Use History: None Reported Past Drug Use History: None Reported Medications and Allergies Home Medications Medication Instructions Recorded Confirmed Type Pravastatin Sodium [Pravachol] 20 mg PO HS 02/21/20 03/25/23 History lisinopriL 20 mg PO DAILY 02/21/20 03/25/23 History Albuterol Sulfate [Ventolin HFA] 2 puff INHALATION RT-QID PRN 03/25/23 03/25/23 History Metoprolol Tartrate [Lopressor] 25 mg PO BID 03/25/23 03/25/23 History Mirtazapine [Remeron] 45 mg PO HS 03/25/23 03/25/23 History Sertraline [Zoloft] 100 mg PO DAILY 03/25/23 03/25/23 History allopurinoL 100 mg PO DAILY 03/25/23 03/25/23 History risperiDONE [RisperDAL] 1 mg PO HS 03/25/23 03/25/23 History Allergies Allergy/AdvReac Type Severity Reaction Status Date / Time No Known Allergies Allergy Verified 03/25/23 17:04 Physical Exam Vitals: Vital Signs Temp Pulse Pulse Resp BP BP Pulse Ox 03/27/23 07:50 90 18 126/69 94 L 03/27/23 01:13 98.2 F 77 17 125/74 94 L 03/26/23 19:25 98 F 87 17 113/69 98 03/26/23 15:35 98.3 F 91 19 111/71 92 L 03/26/23 15:10 90 16 123/74 94 L 03/26/23 14:47 94 16 113/71 93 L 03/26/23 14:35 95 16 126/74 92 L 03/26/23 14:20 99.1 F 83 20 135/82 97 Intake and Output 03/26/23 03/27/23 03/27/23 22:59 06:59 14:59 Output Total 0 Balance 0 Output: Urine 0 Other: Voiding Method Toilet Toilet # Voids 1 Weight 86.183 kg Results CBC & Chem 7: 03/27/23 06:44 03/27/23 06:44 Labs: Abnormal Lab Results - Last 24 Hours (Table) 03/26/23 Range/Units 10:01 Carbon Dioxide 20 L (22-30) mmol/L BUN 32 H (7-17) mg/dL Creatinine 1.05 H (0.52-1.04) mg/dL Glucose 109 H (74-99) mg/dL Calcium 7.8 L (8.4-10.2) mg/dL Microbiology - Last 24 Hours (Table) 03/25/23 21:25 Blood Culture Gram Stain - Preliminary Blood 03/25/23 21:10 Blood Culture Gram Stain - Preliminary Blood Assessment and Plan Plan: 1patient with a complicated history of abdominal pain in this patient CT did shows a fluid collection that has been CT-guided drain which looks mostly urine with a question of possible colovesical fistula as a complication of diverticulitis and will need to cover for the enteric gram-negative both aerobes and anaerobes. 2positive blood culture with gram-positive cocci with a question of possible skin contamination versus related to an abdominal abscess. 3nursing staff has been advised to obtain UA and culture on the specimen 4blood cultures will be repeated document clearance of bacteremia 5patient to continue with the Zosyn while waiting for the culture to finalize We will follow on clinical condition and cultures to further adjust medication if needed Thank you for this consultation we will follow the patient along with you Dictation was produced using [employer] dictation software. please excuse any gram matical, word or spelling errors. Time with Patient: Greater than 30
[2023-03-27] MEDS: VANCOMYCIN 1,250 MG in SODIUM CHLORIDE 0.9% 250 ML IVPB SCH (23:01)
[2023-03-27] MEDS: MIRTAZAPINE 45 MG TABLET PO SCH (23:23)
[2023-03-27] MEDS: risperiDONE 1 MG TAB PO SCH (23:23)
[2023-03-28] MEDS: HYDROmorphone 0.5 MG/0.5 ML SYRINGE IVP PRN (00:43)
[2023-03-28] MEDS: HEPARIN SODIUM,PORCINE 5,000 UNIT/ML 1 ML VIAL SQ SCH ×3 (00:44→18:13)
[2023-03-28] MEDS: PIPERACILLIN-TAZOBACTAM 3.375 GM in SODIUM CHLORIDE 0.9% 100 ML IVPB SCH ×3 (03:15→21:45)
[2023-03-28] MEDS: SODIUM CHLORIDE 0.9% 1,000 ML IV SCH ×2 (06:18→14:07)
[2023-03-28 07:04] LABS: ALT 158 U/L (4-34); AST 182 U/L (14-36); African American GFR (CKD) 86 (>60 ml/min/1.73 sqM); Albumin 2.4 g/dL (3.5-5.0); Albumin/Globulin Ratio 0.9; Alkaline Phosphatase 171 U/L (38-126); Anion Gap 7 mmol/L; Blood Urea Nitrogen 14 mg/dL (7-17); Calcium 8.2 mg/dL (8.4-10.2); Carbon Dioxide 20 mmol/L (22-30); Chloride 110 mmol/L (98-107); Globulin 2.7 g/dL; Glucose 98 mg/dL (74-99); Non-African American GFR(CKD) 75 (>60 ml/min/1.73 sqM); Sodium 137 mmol/L (137-145); Total Bilirubin 0.6 mg/dL (0.2-1.3); Total Protein 5.1 g/dL (6.3-8.2)
[2023-03-28] MEDS: allopurinoL 100 MG TAB PO SCH (08:34)
[2023-03-28] MEDS: SERTRALINE 100 MG TAB PO SCH (08:34)
[2023-03-28] MEDS: METOPROLOL TARTRATE 25 MG TAB PO SCH ×2 (08:34→21:47)
[2023-03-28 10:50] LABS: Basophils # (A) 0.08 X 10*3/uL (0.00-0.10); Basophils % (A) 0.7 %; Eosinophils # (A) 0.25 X 10*3/uL (0.04-0.35); Eosinophils % (A) 2.1 %; HCT 32.6 % (37.2-46.3); HGB 10.2 d/dL (12.0-15.0); Lymphocytes % (A) 11.1 %; MCH 30.2 pg (27.0-32.0); MCHC 31.3 d/dL (32.0-37.0); MCV 96.4 FL (80.0-97.0); Mean Platelet Volume 11.3 FL (9.5-12.2); Monocytes # (A) 0.69 X 10*3/uL (0.20-1.00); Monocytes % (A) 5.9 %; NRBC Per 100 WBC 0 X 10*3/uL (0.00-0.01); Neutrophils # (A) 8.86 X 10*3/uL (1.80-7.70); Neutrophils % (A) 75.3 %; Platelet Count 273 X 10*3/uL (140-440); RBC 3.38 X 10*6/uL (4.10-5.20); RDW 15.4 % (11.5-14.5); WBC 11.75 X 10*3/uL (4.50-10.00)
--- NOTE | 2023-03-28 16:05 | P.PN ---
Subjective Progress Note Date: 03/28/23 Principal diagnosis: Diverticulitis, abscess, bacteremia Patient is a 77-year-old female with a past medical his significant for hypertension hyperlipidemia anxiety bipolar disorder presenting to the hospital for evaluation of left-sided abdominal pain, patient did have CT of abdominal pelvis concerning for abdominal abscess related to diverticulitis and the patient is status post CT-guided drainage of the fluid collection on 03/27/2023 on today's evaluation that is03/28/2023, the patient remains to be afebrile, the patient is breathing comfortably , the patient denies chest pain and no significant cough, the patient denies nausea and vomiting no abdominal pain and no diarrhea, Patient white count is 11.75 creatinine is 0.78, liver enzymes elevated, local c ultures pending blood cultures coagulase negative staph Objective - Vital Signs Vital signs: Vital Signs Temp 98.4 F 03/28/23 08:00 Pulse 89 03/28/23 08:00 Resp 18 03/28/23 08:00 BP 118/75 03/28/23 08:00 Pulse Ox 94 L 03/28/23 08:00 FiO2 Intake & Output 03/27/23 03/28/23 03/28/23 18:59 06:59 18:59 Intake Total 1200 Output Total 20 Balance 1200 -20 Intake: Intake, IV Titration 1200 Amount Sodium Chloride 0.9% 1, 1200 000 ml @ 50 mls/hr IV . Q20H [facility] Rx#:[id number] Output: Drainage 20 Left Lower Abdomen 20 Other: Voiding Method Toilet Toilet # Voids 0 1 - Exam GENERAL DESCRIPTION: An elderly female up in bed in no distress RESPIRATORY SYSTEM: Unlabored breathing , decreased breath sounds at bases HEART: S1 S2 regular rate and rhythm , ABDOMEN: Soft , no tenderness EXTREMITIES: No edema feet - Labs CBC & Chem 7: 03/28/23 06:27 03/28/23 06:27 Labs: Abnormal Lab Results - Last 24 Hours (Table) 03/28/23 03/28/23 Range/Units 06:27 06:27 WBC 11.75 H (4.50-10.00) X 10*3/uL RBC 3.38 L (4.10-5.20) X 10*6/uL Hgb 10.2 L (12.0-15.0) d/dL Hct 32.6 L (37.2-46.3) % MCHC 31.3 L (32.0-37.0) d/dL RDW 15.4 H (11.5-14.5) % Neutrophils # 8.86 H (1.80-7.70) X 10*3/uL Chloride 110 H (98-107) mmol/L Carbon Dioxide 20 L (22-30) mmol/L Calcium 8.2 L (8.4-10.2) mg/dL AST 182 H (14-36) U/L ALT 158 H (4-34) U/L Alkaline Phosphatase 171 H (38-126) U/L Total Protein 5.1 L (6.3-8.2) g/dL Albumin 2.4 L (3.5-5.0) g/dL Microbiology - Last 24 Hours (Table) 03/25/23 21:10 Blood Culture Gram Stain - Final Blood Blood Culture - Final Coagulase Negative Staph Coagulase Negative Staph#2 03/25/23 21:25 Blood Culture Gram Stain - Final Blood Blood Culture - Final Coagulase Negative Staph Coagulase Negative Staph#2 Assessment and Plan (1) Positive blood culture Current Visit: Yes Status: Acute Code(s): R78.81 - BACTEREMIA SNOMED Co de(s): 721094926 (2) Diverticulitis of intestine with abscess Current Visit: Yes Status: Acute Code(s): K57.80 - DVTRCLI OF INTEST, PART UNSP, W PERF AND ABSCESS W/O BLEED SNOMED Code(s): 718870230 Plan: 1patient with a complicated history of abdominal pain in this patient CT did shows a fluid collection that has been CT-guided drain which looks mostly urine with a question of possible colovesical fistula as a complication of div erticulitis and will need to cover for the enteric gram-negative both aerobes and anaerobes. 2positive blood culture with coagulase negative staph likely skin contamination 3nursing staff has been advised again to obtain UA on the specimen as it looks like urine 4blood cultures has been repeated document clearance of bacteremia 5patient to continue with the Zosyn however discontinue vancomycin to decrease risk of nephrotoxicity Dictation was produced using [employer] dictation software. please excuse any grammatical, word or spelling errors. Time with Patient: Less than 30
--- NOTE | 2023-03-28 16:31 | P.PN ---
Subjective Progress Note Date: 03/28/23 CHIEF COMPLAINT: Diverticulitis abscess HISTORY OF PRESENT ILLNESS: Patient is status post CT-guided drainage of diverticular abscess. 20 mL Output yellowish in color. Afebrile. She has positive blood cultures with colitis negative staph likely skin contamination. Seen by infectious disease. Patient reports abdominal pain has improved. She is tolerating diet. She denies any nausea vomiting. Afebrile. WBC is about the same at 11.75 PHYSICAL EXAM: VITAL SIGNS: Reviewed. GENERAL: Well-developed in no acute distress. ABDOMEN: Soft. Nondistended. Nontender. Drain in place with serous drainage NEUROLOGIC: Alert and oriented. Cranial nerves II through XII grossly intact. ASSESSMENT: 1. Diverticulitis with abscess status post CT-guided drainage of abscess 2. Elevated LFTs possibly medication induced PLAN: -Advance diet to full liquids and then as tolerated -Continue antibiotics per ID service -Continue to monitor CBC -Continue to monitor LFTs Physician Lead Burner Helper note has been reviewed by physician. Signing provider agrees with the documented findings, assessment, and plan of care. Objective - Vital Signs Vital signs: Vital Signs Temp 98.4 F 03/28/23 08:00 Pulse 89 03/28/23 08:00 Resp 18 03/28/23 08:00 BP 118/75 03/28/23 08:00 Pulse Ox 94 L 03/28/23 08:00 FiO2 Intake & Output 03/27/23 03/28/23 03/28/23 18:59 06:59 18:59 Intake Total 1200 Output Total 20 Balance 1200 -20 Intake: Intake, IV Titration 1200 Amount Sodium Chloride 0.9% 1, 1200 000 ml @ 50 mls/hr IV . Q20H [facility] Rx#:[id number] Output: Drainage 20 Left Lower Abdomen 20 Other: Voiding Method Toilet Toilet # Voids 0 1 - Labs CBC & Chem 7: 03/28/23 06:27 03/28/23 06:27 Labs: Abnormal Lab Results - Last 24 Hours (Table) 03/28/23 03/28/23 Range/Units 06:27 06:27 WBC 11.75 H (4.50-10.00) X 10*3/uL RBC 3.38 L (4.10-5.20) X 10*6/uL Hgb 10.2 L (12.0-15.0) d/dL Hct 32.6 L (37.2-46.3) % MCHC 31.3 L (32.0-37.0) d/dL RDW 15.4 H (11.5-14.5) % Neutrophils # 8.86 H (1.80-7.70) X 10*3/uL Chloride 110 H (98-107) mmol/L Carbon Dioxide 20 L (22-30) mmol/L Calcium 8.2 L (8.4-10.2) mg/dL AST 182 H (14-36) U/L ALT 158 H (4-34) U/L Alkaline Phosphatase 171 H (38-126) U/L Total Protein 5.1 L (6.3-8.2) g/dL Albumin 2.4 L (3.5-5.0) g/dL Microbiology - Last 24 Hours (Table) 03/25/23 21:10 Blood Culture Gram Stain - Final Blood Blood Culture - Final Coagulase Negative Staph Coagulase Negative Staph#2 03/25/23 21:25 Blood Culture Gram Stain - Final Blood Blood Culture - Final Coagulase Negative Staph Coagulase Negative Staph#2
[2023-03-28] MEDS: risperiDONE 1 MG TAB PO SCH (21:47)
[2023-03-28] MEDS: MIRTAZAPINE 45 MG TABLET PO SCH (21:47)
[2023-03-29] MEDS: HEPARIN SODIUM,PORCINE 5,000 UNIT/ML 1 ML VIAL SQ SCH ×4 (00:02→23:08)
[2023-03-29] MEDS: VANCOMYCIN 1,250 MG in SODIUM CHLORIDE 0.9% 250 ML IVPB SCH (01:58)
[2023-03-29] MEDS: PIPERACILLIN-TAZOBACTAM 3.375 GM in SODIUM CHLORIDE 0.9% 100 ML IVPB SCH ×4 (06:19→23:06)
--- NOTE | 2023-03-29 06:29 | P.PN ---
Subjective Progress Note Date: 03/28/23 Patient is a 77-year-old female with a known history of hypertension, hyperlipidemia, anxiety/bipolar disorder and mentally challenged was brought to ER by her daughter who is her guardian. Patient could not provide much history at this time. According to the family members she has been having abdominal pain mainly left lower quadrant since last Friday, about 3 to 4 days. Denies any fever or chills. On admission patient was tachycardic with heart rate 114. Patient also felt dyspneic. Denies any leg swelling. No dizziness or lightheadedness. Chest x-ray showed no acute cardiopulmonary process/disease. COPD changes. EKG showed sinus tachycardia. Occasional supraventricular premature complexes. CT of the abdomen pelvis showed irregular shaped left lower quadrant fluid collection concerning for abscess. This is in close proximity to the sigmoid colon most pronounced in the left ovary. Unclear if it is a sequela of diverticulitis which is new from 09/25/2022. CTA chest showed no evidence of PE. Low lung volumes with suspected pulmonary vascular congestion and cardiomegaly correlate with serum BNP for congestive heart failure there may be trace bilateral pleural effusions. Laboratory data showed WBC of 18.8 hemoglobin 12.5 and platelets 276 D-dimer level is 4.17 Sodium 136 potassium 3.8 chloride 104 bicarb is 21 BUN 37 creatinine 1.17 Blood sugar is 163 and lactic acid 1.2 liver enzymes showed AST 77 ALT 42 and alk phos 132. Bilirubin 0.8. Amylase and lipase not elevated proBNP 326 and troponin less than 0.012. 03/27/2023 Patient is seen and evaluated in follow-up this morning currently sitting up in the chair with daughter at the bedside. Patient reports she's been having some loose stools and denies any abdominal pain. Patient is status post interventional radiology guided drain for diverticular abscess. On exam the drainage appears to be urine and infectious disease is following and is being sent for urinalysis with culture. There is concerns for a fistula and will discuss further with infectious disease. White count is trending down nicely and is currently 11.36 today, hemoglobin is stable at 10.5. Kidney functions improved with a creatinine of 0.9 and potassium is 3.6. Liver functions are elevated and will hold statin. Other medications have been reviewed. 03/28/2023 Patient seen and evaluated in follow-up today reporting feeling sore in the left outer lower quadrant where the drain is other than that denies abdominal pain. Patient had urinalysis with culture drawn on the drainage which was negative for growth. Blood cultures pending finalization most likely contaminant. Infectious disease is following and patient is maintained on Zosyn and Flagyl. Liver functions are trending up and will continue to monitor. Patient is afebrile and white count is trending down with no reports of nausea or vomiting. Patient denies any further loose stools and reports the passing gas and having bowel movements. Review of systems: Constitutional: No reports of fatigue, fever, or chills Cardiovascular: No reports of chest pain or palpitations Respiratory: No reports of shortness of breath or cough GI: No reports of nausea, no vomiting, reports no loose stool today : No reports of dysuria or retention Neurovascular: reports of generalized weakness All medications have been reviewed PHYSICAL EXAMINATION: Patient is sitting up in the chair, no acute distress, awake alert and able to follow simple commands... Obese HEENT: Normocephalic. Neck is supple. Pupils reactive. Nostrils clear. Oral cavity is moist. Neck reveals no JVD, carotid bruits, or thyromegaly. CHEST EXAMINATION: Trachea is central. Symmetrical expansion. Bibasilar diminished sounds. No wheezing or rhonchi.. CARDIAC: Normal S1, S2 with no gallops. No murmurs ABDOMEN: Soft. Bowel sounds present. Mild Left lower quadrant tenderness noted on palpation and there is a drain noted with clear yellow urine in the bag. No guarding or rigidity.. No organomegaly. No abdominal bruits. Extremities: reveal no edema. No clubbing or cyanosis Neurologically awake, alert,. Mentally challenged. No gross focal deficits noted Skin: No rash or skin lesions. Psychiatric: Cooperative. Could not be assessed completely., Musculoskeletal: No joint swelling or deformity. Normal range of motion. Assessment: Left lower quadrant fluid collection/abscess in close proximity to the sigmoid colon. Possible sequelae of diverticulitis. Sepsis secondary to intra-abdominal abscess. Present on admission Bacteremia secondary to above Dyspnea with pulmonary vascular congestion and trace effusion. proBNP not elevated. No leg swelling. CTA negative for PE. Hypovolemic hyponatremia Mild transaminitis, trending up and monitoring closely Hypertension Hyperlipidemia Obesity with a body mass index of 34.8 Anxiety/bipolar disorder and panic disorder Mentally challenged DVT prophylaxis with heparin subcu GI prophylaxis GI prophylaxis Full code Plan: Patient will be continued on gentle IV hydration. Continue with antibiotics in the form of Zosyn and infectious disease following vancomycin discontinued. Awaiting cultures to finalize. Urine culture was negative Patient is status post IR CT-guided drainage of this intra-abdominal abscess. The drainage bag appears to have urine which is sent for urinalysis with culture with concerns of fistula Repeat labs showing white count is improving kidney functions are stable and potassium is 3.6. Patient tolerating diet Patient does have mildly elevated LFTs and will hold statin therapy and follow- up with repeat labs PT/OT therapy to evaluate Awaiting cultures to determine appropriate antibiotics. Blood cultures are positive and will need to continue with blood cultures to monitor for clearance of bacteremia. Most recent repeat blood cultures are negative for 24 hours. Patient did have a urine sample sent from the drainage bag which is negative as well and awaiting wound cultures which are pending Will follow-up on repeat labs in a.m. Due to multiple complex medical issues, prognosis is guarded The impression and plan of care has been dictated by Amber Johnson, Nurse Practitioner as directed. Dr. Rhona MD I have performed a history and examination and MDM of this patient, discussed the same with the dictator, and agree with the dictator's assessment and plan as written ,documented as a scribe. Based on total visit time, I have performed more than 50% of the visit. Objective - Vital Signs Vital signs: Vital Signs Temp 98.4 F 03/28/23 08:00 Pulse 89 03/28/23 08:00 Resp 18 03/28/23 08:00 BP 118/75 03/28/23 08:00 Pulse Ox 94 L 03/28/23 08:00 FiO2 Intake & Output 03/27/23 03/28/23 03/28/23 18:59 06:59 18:59 Intake Total 1200 Output Total 20 Balance 1200 -20 Intake: Intake, IV Titration 1200 Amount Sodium Chloride 0.9% 1, 1200 000 ml @ 50 mls/hr IV . Q20H [facility] Rx#:[id number] Output: Drainage 20 Left Lower Abdomen 20 Other: Voiding Method Toilet Toilet # Voids 0 1 - Labs CBC & Chem 7: 03/28/23 06:27 03/28/23 06:27 Labs: Abnormal Lab Results - Last 24 Hours (Table) 03/27/23 03/27/23 03/28/23 Range/Units 06:44 06:44 06:27 WBC 11.36 H (4.50-10.00) X 10*3/uL RBC 3.48 L (4.10-5.20) X 10*6/uL Hgb 10.5 L (12.0-15.0) d/dL Hct 33.4 L (37.2-46.3) % MCHC 31.4 L (32.0-37.0) d/dL RDW 15.3 H (11.5-14.5) % Neutrophils # 9.28 H (1.80-7.70) X 10*3/uL Lymphocytes # 0.83 L (0.90-5.00) X 10*3/uL Chloride 110 H (98-107) mmol/L Carbon Dioxide 20.7 L 20 L (21.6-31.8) mmol/L Anion Gap 12.30 H (4.00-12.00) mmol/L BUN/Creatinine Ratio 26.33 H (12.00-20.00) Ratio Calcium 7.8 L 8.2 L (8.7-10.3) mg/dL AST 141 H 182 H (13-35) U/L ALT 110 H 158 H (8-44) U/L Alkaline Phosphatase 157 H 171 H (41-126) U/L Total Protein 5.2 L 5.1 L (6.2-8.2) d/dL Albumin 2.7 L 2.4 L (3.8-4.9) d/dL Albumin/Globulin Ratio 1.08 L (1.60-3.17) Ratio Microbiology - Last 24 Hours (Table) 03/25/23 21:10 Blood Culture Gram Stain - Final Blood Blood Culture - Final Coagulase Negative Staph Coagulase Negative Staph#2 03/25/23 21:25 Blood Culture Gram Stain - Final Blood Blood Culture - Final Coagulase Negative Staph Coagulase Negative Staph#2
[2023-03-29 06:53] LABS: ALT 108 U/L (4-34); AST 76 U/L (14-36); African American GFR (CKD) >90 (>60 ml/min/1.73 sqM); Albumin 2.2 g/dL (3.5-5.0); Albumin/Globulin Ratio 0.8; Alkaline Phosphatase 147 U/L (38-126); Anion Gap 5 mmol/L; Blood Urea Nitrogen 8 mg/dL (7-17); Calcium 8.2 mg/dL (8.4-10.2); Carbon Dioxide 22 mmol/L (22-30); Chloride 112 mmol/L (98-107); Globulin 2.6 g/dL; Glucose 96 mg/dL (74-99); Non-African American GFR(CKD) 86 (>60 ml/min/1.73 sqM); Potassium 4.3 mmol/L (3.5-5.1); Sodium 139 mmol/L (137-145); Total Bilirubin 0.4 mg/dL (0.2-1.3); Total Protein 4.8 g/dL (6.3-8.2)
[2023-03-29] MEDS: METOPROLOL TARTRATE 25 MG TAB PO SCH ×2 (09:16→20:18)
[2023-03-29] MEDS: allopurinoL 100 MG TAB PO SCH (09:16)
[2023-03-29] MEDS: SERTRALINE 100 MG TAB PO SCH (09:16)
[2023-03-29] MEDS: SODIUM CHLORIDE 0.9% 1,000 ML IV SCH (09:16)
[2023-03-29 11:23] LABS: HCT 32.1 % (37.2-46.3); HGB 10.1 d/dL (12.0-15.0); MCH 30.4 pg (27.0-32.0); MCHC 31.5 d/dL (32.0-37.0); MCV 96.7 FL (80.0-97.0); Mean Platelet Volume 11.9 FL (9.5-12.2); NRBC Per 100 WBC 0 X 10*3/uL (0.00-0.01); Platelet Count 292 X 10*3/uL (140-440); RBC 3.32 X 10*6/uL (4.10-5.20); RDW 15.3 % (11.5-14.5); WBC 11.51 X 10*3/uL (4.50-10.00)
[2023-03-29 11:53] LABS: Basophils # (M) 0 X 10*3/uL (0.00-0.10); Neutrophils % (M) 80 %
--- NOTE | 2023-03-29 11:58 | P.PN ---
Progress Note - Text Progress Note Date: 03/29/23 Patient feels better. She states her abdominal pain is improved. On exam vital signs are stable. Abdomen soft there is mild tenderness left lower quadrant. Resolving diverticula is abscess. Patient to receive IV antibiotics.
[2023-03-29 12:03] LABS: Eosinophils # (M) 0.23 X 10*3/uL (0.04-0.35); Metamyelocytes % 1 % (0-0); Monocytes # (M) 0.46 X 10*3/uL (0.20-1.00); Neutrophils # (M) 9.21 X 10*3/uL (1.80-7.70); RBC Morphology Normal (Normal)
[2023-03-29 12:03] LABS: Bacteria,Urine Rare /hpf; Mucus,Urine Rare /hpf; RBC,Urine 20 /hpf (0-5); WBC,Urine 11 /hpf (0-5)
[2023-03-29 12:13] LABS: Appearance,Urine Cloudy (Clear); Bilirubin,Urine Negative (Negative); Blood,Urine Moderate (Negative); Color,Urine Yellow; Glucose,Urine (UA) Negative (Negative); Ketones,Urine Negative (Negative); Leukocyte Esterase,Urine Moderate (Negative); Nitrite,Urine Negative (Negative); Protein,Urine 3+ (Negative); Specific Gravity,Urine 1.025 (1.001-1.035); Urobilinogen,Urine <2.0 mg/dL (<2.0)
--- NOTE | 2023-03-29 12:27 | P.PN ---
Subjective Progress Note Date: 03/29/23 Principal diagnosis: Diverticulitis, abscess, bacteremia Patient is a 77-year-old female with a past medical his significant for hypertension hyperlipidemia anxiety bipolar disorder presenting to the hospital for evaluation of left-sided abdominal pain, patient did have CT of abdominal pelvis concerning for abdominal abscess related to diverticulitis and the patient is status post CT-guided drainage of the fluid collection on 03/27/2023 on today's evaluation that is 03/29/2023, the patient denies any fever or any chills, the patient is breathing comfortably , the patient denies chest pain and no significant cough, the patient denies nausea and vomiting , the patient abdominal pain has decreased in intensity and no diarrhea reported, Patient white count is 11.51 creatinine is 0.68, liver enzymes elevated, local cultures currently growing gram-negative, blood cultures coagulase negative staph Objective - Vital Signs Vital signs: Vital Signs Temp 98.1 F 03/29/23 08:25 Pulse 82 03/29/23 08:25 Resp 20 03/29/23 08:25 BP 108/51 03/29/23 08:25 Pulse Ox 92 L 03/29/23 08:25 FiO2 Intake & Output 03/28/23 03/29/23 03/29/23 18:59 06:59 18:59 Other: Voiding Method Toilet # Voids 3 2 - Exam GENERAL DESCRIPTION: An elderly female up in bed in no distress RESPIRATORY SYSTEM: Unlabored breathing , decreased breath sounds at bases HEART: S1 S2 regular rate and rhythm , ABDOMEN: Soft , no tenderness EXTREMITIES: No edema feet - Labs CBC & Chem 7: 03/29/23 05:59 03/29/23 05:59 Labs: Abnormal Lab Results - Last 24 Hours (Table) 03/28/23 03/29/23 Range/Units 06:27 05:59 WBC 11.75 H (4.50-10.00) X 10*3/uL RBC 3.38 L (4.10-5.20) X 10*6/uL Hgb 10.2 L (12.0-15.0) d/dL Hct 32.6 L (37.2-46.3) % MCHC 31.3 L (32.0-37.0) d/dL RDW 15.4 H (11.5-14.5) % Neutrophils # 8.86 H (1.80-7.70) X 10*3/uL Chloride 112 H (98-107) mmol/L Calcium 8.2 L (8.4-10.2) mg/dL AST 76 H (14-36) U/L ALT 108 H (4-34) U/L Alkaline Phosphatase 147 H (38-126) U/L Total Protein 4.8 L (6.3-8.2) g/dL Albumin 2.2 L (3.5-5.0) g/dL Microbiology - Last 24 Hours (Table) 03/26/23 15:10 Gram Stain - Preliminary Aspirate Body Fluid Culture - Preliminary Gram Neg Bacilli 03/28/23 13:20 Urine Culture - Final Urine,Clean Catch 03/27/23 06:44 Blood Culture - Preliminary Blood 03/25/23 21:10 Blood Culture Gram Stain - Final Blood Blood Culture - Final Coagulase Negative Staph Coagulase Negative Staph#2 03/25/23 21:25 Blood Culture Gram Stain - Final Blood Blood Culture - Final Coagulase Negative Staph Coagulase Negative Staph#2 Assessment and Plan (1) Positive blood culture Current Visit: Yes Status: Acute Code(s): R78.81 - BACTEREMIA SNOMED Code(s): 770608942 (2) Diverticulitis of intestine with abscess Current Visit: Yes Status: Acute Code(s): K57.80 - DVTRCLI OF INTEST, PART UNSP, W PERF AND ABSCESS W/O BLEED SNOMED Code(s): 064948771 Plan: 1patient with a complicated history of abdominal pain in this patient CT did shows a fluid collection that has been CT-guided drain which looks mostly urine with a question of possible colovesical fistula as a complication of diverticulitis and will need to cover for the enteric gram-negative both aerobes and anaerobes. 2positive blood culture with coagulase negative staph likely skin contamination, blood cultures has been repeated document clearance of bacteremia 3patient to continue with the Zosyn and monitor clinical course closely Dictation was produced using [employer] dictation software. please excuse any grammatical, word or spelling errors. Time with Patient: Less than 30
[2023-03-29] MEDS: risperiDONE 1 MG TAB PO SCH (20:19)
[2023-03-29] MEDS: MIRTAZAPINE 45 MG TABLET PO SCH (20:19)
[2023-03-29 22:56] LABS: Appearance,Urine Clear (Clear); Bacteria,Urine Rare /hpf; Bilirubin,Urine Negative (Negative); Blood,Urine Negative (Negative); Color,Urine Colorless; Glucose,Urine (UA) Negative (Negative); Ketones,Urine Negative (Negative); Leukocyte Esterase,Urine Small (Negative); Mucus,Urine Rare /hpf; Nitrite,Urine Negative (Negative); PH, Urine 5.5 (5.0-8.0); Protein,Urine Negative (Negative); RBC,Urine <1 /hpf (0-5); Specific Gravity,Urine 1.005 (1.001-1.035); Squamous Epithelial Cell,Urine 1 /hpf (0-4); Urobilinogen,Urine <2.0 mg/dL (<2.0); WBC,Urine 3 /hpf (0-5)
[2023-03-30 05:25] LABS: ALT 80 U/L (4-34); AST 55 U/L (14-36); African American GFR (CKD) >90 (>60 ml/min/1.73 sqM); Albumin 2.2 g/dL (3.5-5.0); Albumin/Globulin Ratio 0.8; Alkaline Phosphatase 129 U/L (38-126); Anion Gap 5 mmol/L; Blood Urea Nitrogen 5 mg/dL (7-17); Calcium 8.1 mg/dL (8.4-10.2); Carbon Dioxide 23 mmol/L (22-30); Chloride 110 mmol/L (98-107); Globulin 2.6 g/dL; Glucose 90 mg/dL (74-99); Non-African American GFR(CKD) 84 (>60 ml/min/1.73 sqM); Potassium 4.1 mmol/L (3.5-5.1); Sodium 138 mmol/L (137-145); Total Bilirubin 0.4 mg/dL (0.2-1.3); Total Protein 4.8 g/dL (6.3-8.2)
[2023-03-30] MEDS: PIPERACILLIN-TAZOBACTAM 3.375 GM in SODIUM CHLORIDE 0.9% 100 ML IVPB SCH ×3 (05:48→23:48)
[2023-03-30] MEDS: SODIUM CHLORIDE 0.9% 1,000 ML IV SCH (05:49)
[2023-03-30] MEDS: METOPROLOL TARTRATE 25 MG TAB PO SCH ×2 (08:28→20:34)
[2023-03-30] MEDS: SERTRALINE 100 MG TAB PO SCH (08:28)
[2023-03-30] MEDS: HEPARIN SODIUM,PORCINE 5,000 UNIT/ML 1 ML VIAL SQ SCH ×3 (08:28→23:48)
[2023-03-30] MEDS: allopurinoL 100 MG TAB PO SCH (08:28)
--- NOTE | 2023-03-30 09:28 | P.PN ---
Progress Note - Text Progress Note Date: 03/30/23 Patient's feeling better. She has less abdominal pain. On exam vital signs are stable. Abdomen is soft there is minimal left lower quadrant tenderness. Resolving diverticulitis with drainage of abscess. Patient will have her diet advanced. We discussed with discharge home the next 24-48 hours.
[2023-03-30 10:27] LABS: HCT 30.8 % (37.2-46.3); HGB 9.5 d/dL (12.0-15.0); MCH 30.1 pg (27.0-32.0); MCHC 30.8 d/dL (32.0-37.0); MCV 97.5 FL (80.0-97.0); Mean Platelet Volume 11.8 FL (9.5-12.2); NRBC Per 100 WBC 0 X 10*3/uL (0.00-0.01); Platelet Count 299 X 10*3/uL (140-440); RBC 3.16 X 10*6/uL (4.10-5.20); RDW 15.4 % (11.5-14.5)
[2023-03-30 10:53] LABS: Basophils # (M) 0 X 10*3/uL (0.00-0.10); Neutrophils % (M) 80 %
[2023-03-30 11:01] LABS: Eosinophils # (M) 0.22 X 10*3/uL (0.04-0.35); Lymphocytes # (M) 0.97 X 10*3/uL (0.90-5.00); Metamyelocytes % 4 % (0-0); Monocytes # (M) 0.43 X 10*3/uL (0.20-1.00); Myelocytes % 1 % (0-0); Neutrophils # (M) 8.64 X 10*3/uL (1.80-7.70); RBC Morphology Normal (Normal)
--- NOTE | 2023-03-30 11:08 | P.PN ---
Subjective Progress Note Date: 03/30/23 Principal diagnosis: Diverticulitis, abscess, bacteremia Patient is a 77-year-old female with a past medical his significant for hypertension hyperlipidemia anxiety bipolar disorder presenting to the hospital for evaluation of left-sided abdominal pain, patient did have CT of abdominal pelvis concerning for abdominal abscess related to diverticulitis and the patient is status post CT-guided drainage of the fluid collection on 03/27/2023 on today's evaluation that is 03/30/2023, the patient remains to be afebrile, the patient is breathing comfortably on room air , the patient denies chest pain or cough , the patient denies nausea or vomiting , patient denies abdominal pain and no diarrhea has been reported, Patient white count is 10.80 creatinine is 0.4, liver enzymes trending down, local cultures currently growing E. coli and Streptococcus, blood cultures coagulase negative staph Objective - Vital Signs Vital signs: Vital Signs Temp 98.8 F 03/30/23 07:05 Pulse 90 03/30/23 07:05 Resp 19 03/30/23 07:05 BP 156/76 03/30/23 07:05 Pulse Ox 94 L 03/30/23 07:05 FiO2 Intake & Output 03/29/23 03/30/23 03/30/23 18:59 06:59 18:59 Other: Voiding Method Toilet Toilet # Voids 2 2 # Bowel Movements 2 1 - Exam GENERAL DESCRIPTION: An elderly female up in bed in no distress RESPIRATORY SYSTEM: Unlabored breathing , decreased breath sounds at bases HEART: S1 S2 regular rate and rhythm , ABDOMEN: Soft , no tenderness EXTREMITIES: No edema feet - Labs CBC & Chem 7: 03/30/23 04:28 03/30/23 04:28 Labs: Abnormal Lab Results - Last 24 Hours (Table) 03/29/23 03/29/23 03/29/23 Range/Units 05:59 11:20 22:15 WBC 11.51 H (4.50-10.00) X 10*3/uL RBC 3.32 L (4.10-5.20) X 10*6/uL Hgb 10.1 L (12.0-15.0) d/dL Hct 32.1 L (37.2-46.3) % MCV (80.0-97.0) [place] MCHC 31.5 L (32.0-37.0) d/dL RDW 15.3 H (11.5-14.5) % Chloride (98-107) mmol/L BUN (7-17) mg/dL Calcium (8.4-10.2) mg/dL AST (14-36) U/L ALT (4-34) U/L Alkaline Phosphatase (38-126) U/L Total Protein (6.3-8.2) g/dL Albumin (3.5-5.0) g/dL Urine Appearance Cloudy H (Clear) Ur Leukocyte Esterase Small H (Negative) Urine RBC 20 H (0-5) /hpf Urine WBC 11 H (0-5) /hpf Urine Bacteria Rare H Rare H (None) /hpf Urine Mucus Rare H Rare H (None) /hpf 03/30/23 03/30/23 Range/Units 04:28 04:28 WBC 10.80 H (4.50-10.00) X 10*3/uL RBC 3.16 L (4.10-5.20) X 10*6/uL Hgb 9.5 L (12.0-15.0) d/dL Hct 30.8 L (37.2-46.3) % MCV 97.5 H (80.0-97.0) [place] MCHC 30.8 L (32.0-37.0) d/dL RDW 15.4 H (11.5-14.5) % Chloride 110 H (98-107) mmol/L BUN 5 L (7-17) mg/dL Calcium 8.1 L (8.4-10.2) mg/dL AST 55 H (14-36) U/L ALT 80 H (4-34) U/L Alkaline Phosphatase 129 H (38-126) U/L Total Protein 4.8 L (6.3-8.2) g/dL Albumin 2.2 L (3.5-5.0) g/dL Urine Appearance (Clear) Ur Leukocyte Esterase (Negative) Urine RBC (0-5) /hpf Urine WBC (0-5) /hpf Urine Bacteria (None) /hpf Urine Mucus (None) /hpf Microbiology - Last 24 Hours (Table) 03/26/23 15:10 Anaerobic Culture - Preliminary Abdomen 03/26/23 15:10 Gram Stain - Preliminary Aspirate Body Fluid Culture - Preliminary Escherichia coli Non Hemolytic Strep 03/28/23 06:27 Blood Culture - Preliminary Blood 03/27/23 06:44 Blood Culture - Preliminary Blood Assessment and Plan (1) Positive blood culture Current Visit: Yes Status: Acute Code(s): R78.81 - BACTEREMIA SNOMED Code(s): 654880000 (2) Diverticulitis of intestine with abscess Current Visit: Yes Status: Acute Code(s): K57.80 - DVTRCLI OF INTEST, PART UNSP, W PERF AND ABSCESS W/O BLEED SNOMED Code(s): 238054677 Plan: 1patient with a complicated history of abdominal pain in this patient CT did shows a fluid collection that has been CT-guided drain which looks mostly urine with a question of possible colovesical fistula as a complication of diverticulitis and will need to cover for the enteric gram-negative both aerobes and anaerobes. 2positive blood culture with coagulase negative staph likely skin contamination, blood cultures has been repeated document clearance of bacteremia 3patient local culture did grew E. coli and strep for the patient is covered with Zosyn which will be continued patient will benefit from either urology evaluation or cystogram to make sure there is no evidence of any fistula as the output looks mostly urine Dictation was produced using [email or web address] dictation software. please excuse any grammatical, word or spelling errors. Time with Patient: Less than 30
[2023-03-30] MEDS: MIRTAZAPINE 45 MG TABLET PO SCH (20:34)
[2023-03-30] MEDS: risperiDONE 1 MG TAB PO SCH (20:34)
--- NOTE | 2023-03-31 00:29 | P.PN ---
Subjective Progress Note Date: 03/29/23 Patient is a 77-year-old female with a known history of hypertension, hyperlipidemia, anxiety/bipolar disorder and mentally challenged was brought to ER by her daughter who is her guardian. Patient could not provide much history at this time. According to the family members she has been having abdominal pain mainly left lower quadrant since last Friday, about 3 to 4 days. Denies any fever or chills. On admission patient was tachycardic with heart rate 114. Patient also felt dyspneic. Denies any leg swelling. No dizziness or lightheadedness. Chest x-ray showed no acute cardiopulmonary process/disease. COPD changes. EKG showed sinus tachycardia. Occasional supraventricular premature complexes. CT of the abdomen pelvis showed irregular shaped left lower quadrant fluid collection concerning for abscess. This is in close proximity to the sigmoid colon most pronounced in the left ovary. Unclear if it is a sequela of diverticulitis which is new from 09/25/2022. CTA chest showed no evidence of PE. Low lung volumes with suspected pulmonary vascular congestion and cardiomegaly correlate with serum BNP for congestive heart failure there may be trace bilateral pleural effusions. Laboratory data showed WBC of 18.8 hemoglobin 12.5 and platelets 276 D-dimer level is 4.17 Sodium 136 potassium 3.8 chloride 104 bicarb is 21 BUN 37 creatinine 1.17 Blood sugar is 163 and lactic acid 1.2 liver enzymes showed AST 77 ALT 42 and alk phos 132. Bilirubin 0.8. Amylase and lipase not elevated proBNP 326 and troponin less than 0.012. 03/27/2023 Patient is seen and evaluated in follow-up this morning currently sitting up in the chair with daughter at the bedside. Patient reports she's been having some loose stools and denies any abdominal pain. Patient is status post interventional radiology guided drain for diverticular abscess. On exam the drainage appears to be urine and infectious disease is following and is being sent for urinalysis with culture. There is concerns for a fistula and will discuss further with infectious disease. White count is trending down nicely and is currently 11.36 today, hemoglobin is stable at 10.5. Kidney functions improved with a creatinine of 0.9 and potassium is 3.6. Liver functions are elevated and will hold statin. Other medications have been reviewed. 03/28/2023 Patient seen and evaluated in follow-up today reporting feeling sore in the left outer lower quadrant where the drain is other than that denies abdominal pain. Patient had urinalysis with culture drawn on the drainage which was negative for growth. Blood cultures pending finalization most likely contaminant. Infectious disease is following and patient is maintained on Zosyn and Flagyl. Liver functions are trending up and will continue to monitor. Patient is afebrile and white count is trending down with no reports of nausea or vomiting. Patient denies any further loose stools and reports the passing gas and having bowel movements. 03/29/2023 Patient is currently sitting in the chair comfortably. Awake alert and oriented. No complaint of chest pain or abdominal pain. No shortness of breath. No nausea vomiting or diarrhea. Fluid aspirate grew E. coli and nonhemolytic Streptococcus. Blood cultures and urine culture negative. Patient is maintained on Zosyn. ID and general surgery is on board. Laboratory data showed WBC 11.5 hemoglobin 10.1 and platelets 292 BUN 8 and creatinine 0.68 and liver enzymes showed AST 76 ALT 108 and alk phos 147. Trending down slowly. Patient has been afebrile. Review of systems: Constitutional: No reports of fatigue, fever, or chills Cardiovascular: No reports of chest pain or palpitations Respiratory: No reports of shortness of breath or cough GI: No reports of nausea, no vomiting, reports no loose stool today : No reports of dysuria or retention Neurovascular: reports of generalized weakness All medications have been reviewed PHYSICAL EXAMINATION: Patient is sitting up in the chair, no acute distress, awake alert and able to follow simple commands... Obese HEENT: Normocephalic. Neck is supple. Pupils reactive. Nostrils clear. Oral cavity is moist. Neck reveals no JVD, carotid bruits, or thyromegaly. CHEST EXAMINATION: Trachea is central. Symmetrical expansion. Bibasilar diminished sounds. No wheezing or rhonchi.. CARDIAC: Normal S1, S2 with no gallops. No murmurs ABDOMEN: Soft. Bowel sounds present. Mild Left lower quadrant tenderness noted on palpation and there is a drain noted with clear yellow urine in the bag. No guarding or rigidity.. No organomegaly. No abdominal bruits. Extremities: reveal no edema. No clubbing or cyanosis Neurologically awake, alert,. Mentally challenged. No gross focal deficits noted Skin: No rash or skin lesions. Psychiatric: Cooperative. Could not be assessed completely., Musculoskeletal: No joint swelling or deformity. Normal range of motion. Assessment: Left lower quadrant fluid collection/abscess in close proximity to the sigmoid colon. Possible sequelae of diverticulitis. Sepsis secondary to intra-abdominal abscess. Present on admission Bacteremia secondary to above Dyspnea with pulmonary vascular congestion and trace effusion. proBNP not elevated. No leg swelling. CTA negative for PE. Hypovolemic hyponatremia Mild transaminitis, trending up and monitoring closely Hypertension Hyperlipidemia Obesity with a body mass index of 34.8 Anxiety/bipolar disorder and panic disorder Mentally challenged DVT prophylaxis with heparin subcu GI prophylaxis GI prophylaxis Full code Plan: Patient will be continued on gentle IV hydration. Continue with antibiotics in the form of Zosyn and infectious disease following vancomycin discontinued. Awaiting cultures to finalize. Urine culture was negative Patient is status post IR CT-guided drainage of this intra-abdominal abscess. The drainage bag appears to have urine which is sent for urinalysis with culture with concerns of fistula Repeat labs showing white count is improving kidney functions are stable and potassium is 3.6. Patient tolerating diet Patient does have mildly elevated LFTs and will hold statin therapy and follow- up with repeat labs PT/OT therapy to evaluate Awaiting cultures to determine appropriate antibiotics. Blood cultures are positive and will need to continue with blood cultures to monitor for clearance of bacteremia. Most recent repeat blood cultures are negative for 24 hours. Patient did have a urine sample sent from the drainage bag which is negative as well and awaiting wound cultures which are pending Will follow-up on repeat labs in a.m. Due to multiple complex medical issues, prognosis is guarded Objective - Vital Signs Vital signs: Vital Signs Temp 97.9 F 03/29/23 13:47 Pulse 77 03/29/23 13:47 Resp 19 03/29/23 13:47 BP 136/70 03/29/23 13:47 Pulse Ox 93 L 03/29/23 13:47 FiO2 Intake & Output 03/29/23 03/29/23 03/30/23 06:59 18:59 06:59 Other: Voiding Method Toilet Toilet # Voids 2 2 # Bowel Movements 2 - Labs CBC & Chem 7: 03/30/23 04:28 03/30/23 04:28 Labs: Abnormal Lab Results - Last 24 Hours (Table) 03/29/23 03/29/2303/29/23 Range/Units 05:59 05:59 11:20 WBC 11.51 H (4.50-10.00) X 10*3/uL RBC 3.32 L (4.10-5.20) X 10*6/uL Hgb 10.1 L (12.0-15.0) d/dL Hct 32.1 L (37.2-46.3) % MCHC 31.5 L (32.0-37.0) d/dL RDW 15.3 H (11.5-14.5) % Chloride 112 H (98-107) mmol/L Calcium 8.2 L (8.4-10.2) mg/dL AST 76 H (14-36) U/L ALT 108 H (4-34) U/L Alkaline Phosphatase 147 H (38-126) U/L Total Protein 4.8 L (6.3-8.2) g/dL Albumin 2.2 L (3.5-5.0) g/dL Urine Appearance Cloudy H (Clear) Urine RBC 20 H (0-5) /hpf Urine WBC 11 H (0-5) /hpf Urine Bacteria Rare H (None) /hpf Urine Mucus Rare H (None) /hpf Microbiology - Last 24 Hours (Table) 03/26/23 15:10 Gram Stain - Preliminary Aspirate Body Fluid Culture - Preliminary Gram Neg Bacilli 03/28/23 06:27 Blood Culture - Preliminary Blood 03/27/23 06:44 Blood Culture - Preliminary Blood
--- NOTE | 2023-03-31 00:30 | P.PN ---
Subjective Progress Note Date: 03/30/23 Patient is a 77-year-old female with a known history of hypertension, hyperlipidemia, anxiety/bipolar disorder and mentally challenged was brought to ER by her daughter who is her guardian. Patient could not provide much history at this time. According to the family members she has been having abdominal pain mainly left lower quadrant since last Friday, about 3 to 4 days. Denies any fever or chills. On admission patient was tachycardic with heart rate 114. Patient also felt dyspneic. Denies any leg swelling. No dizziness or lightheadedness. Chest x-ray showed no acute cardiopulmonary process/disease. COPD changes. EKG showed sinus tachycardia. Occasional supraventricular premature complexes. CT of the abdomen pelvis showed irregular shaped left lower quadrant fluid collection concerning for abscess. This is in close proximity to the sigmoid colon most pronounced in the left ovary. Unclear if it is a sequela of diverticulitis which is new from 09/25/2022. CTA chest showed no evidence of PE. Low lung volumes with suspected pulmonary vascular congestion and cardiomegaly correlate with serum BNP for congestive heart failure there may be trace bilateral pleural effusions. Laboratory data showed WBC of 18.8 hemoglobin 12.5 and platelets 276 D-dimer level is 4.17 Sodium 136 potassium 3.8 chloride 104 bicarb is 21 BUN 37 creatinine 1.17 Blood sugar is 163 and lactic acid 1.2 liver enzymes showed AST 77 ALT 42 and alk phos 132. Bilirubin 0.8. Amylase and lipase not elevated proBNP 326 and troponin less than 0.012. 03/27/2023 Patient is seen and evaluated in follow-up this morning currently sitting up in the chair with daughter at the bedside. Patient reports she's been having some loose stools and denies any abdominal pain. Patient is status post interventional radiology guided drain for diverticular abscess. On exam the drainage appears to be urine and infectious disease is following and is being sent for urinalysis with culture. There is concerns for a fistula and will discuss further with infectious disease. White count is trending down nicely and is currently 11.36 today, hemoglobin is stable at 10.5. Kidney functions improved with a creatinine of 0.9 and potassium is 3.6. Liver functions are elevated and will hold statin. Other medications have been reviewed. 03/28/2023 Patient seen and evaluated in follow-up today reporting feeling sore in the left outer lower quadrant where the drain is other than that denies abdominal pain. Patient had urinalysis with culture drawn on the drainage which was negative for growth. Blood cultures pending finalization most likely contaminant. Infectious disease is following and patient is maintained on Zosyn and Flagyl. Liver functions are trending up and will continue to monitor. Patient is afebrile and white count is trending down with no reports of nausea or vomiting. Patient denies any further loose stools and reports the passing gas and having bowel movements. 03/29/2023 Patient is currently sitting in the chair comfortably. Awake alert and oriented. No complaint of chest pain or abdominal pain. No shortness of breath. No nausea vomiting or diarrhea. Fluid aspirate grew E. coli and nonhemolytic Streptococcus. Blood cultures and urine culture negative. Patient is maintained on Zosyn. ID and general surgery is on board. Laboratory data showed WBC 11.5 hemoglobin 10.1 and platelets 292 BUN 8 and creatinine 0.68 and liver enzymes showed AST 76 ALT 108 and alk phos 147. Trending down slowly. Patient has been afebrile. 03/30/2023 Patient is currently sitting in a chair. No complaints of fever or chills. No nausea vomiting abdominal pain or diarrhea. No cough or sputum production. Fluid cultures growing E. coli and nonhemolytic Streptococcus. Blood cultures showed coagulase-negative staph. Patient is on Zosyn. ID is on board. Leukocytosis trending down and also liver enzymes improving. Abscess drain tube with minimal diet related discharge. Patient has been afebrile. No other acute overnight issues. Laboratory data reviewed. Review of systems: Constitutional: No reports of fatigue, fever, or chills Cardiovascular: No reports of chest pain or palpitations Respiratory: No reports of shortness of breath or cough GI: No reports of nausea, no vomiting, reports no loose stool today : No reports of dysuria or retention Neurovascular: reports of generalized weakness All medications have been reviewed PHYSICAL EXAMINATION: Patient is sitting up in the chair, no acute distress, awake alert and able to follow simple commands... Obese HEENT: Normocephalic. Neck is supple. Pupils reactive. Nostrils clear. Oral cavity is moist. Neck reveals no JVD, carotid bruits, or thyromegaly. CHEST EXAMINATION: Trachea is central. Symmetrical expansion. Bibasilar diminished sounds. No wheezing or rhonchi.. CARDIAC: Normal S1, S2 with no gallops. No murmurs ABDOMEN: Soft. Bowel sounds present. Mild Left lower quadrant tenderness noted on palpation and there is a drain noted with clear yellow urine in the bag. No guarding or rigidity.. No organomegaly. No abdominal bruits. Extremities: reveal no edema. No clubbing or cyanosis Neurologically awake, alert,. Mentally challenged. No gross focal deficits noted Skin: No rash or skin lesions. Psychiatric: Cooperative. Could not be assessed completely., Musculoskeletal: No joint swelling or deformity. Normal range of motion. Assessment: Left lower quadrant fluid collection/abscess in close proximity to the sigmoid colon. Possible sequelae of diverticulitis. Sepsis secondary to intra-abdominal abscess. Present on admission Bacteremia secondary to above Dyspnea with pulmonary vascular congestion and trace effusion. proBNP not elevated. No leg swelling. CTA negative for PE. Hypovolemic hyponatremia Mild transaminitis, trending up and monitoring closely Hypertension Hyperlipidemia Obesity with a body mass index of 34.8 Anxiety/bipolar disorder and panic disorder Mentally challenged DVT prophylaxis with heparin subcu GI prophylaxis GI prophylaxis Full code Plan: Patient will be continued on gentle IV hydration. Continue with antibiotics in the form of Zosyn and infectious disease following vancomycin discontinued. Awaiting cultures to finalize. Urine culture was negative Patient is status post IR CT-guided drainage of this intra-abdominal abscess. The drainage bag appears to have urine which is sent for urinalysis with culture with concerns of fistula Repeat labs showing white count is improving kidney functions are stable and potassium is 3.6. Patient tolerating diet Patient does have mildly elevated LFTs and will hold statin therapy and follow- up with repeat labs PT/OT therapy to evaluate Awaiting cultures to determine appropriate antibiotics. Blood cultures are positive and will need to continue with blood cultures to monitor for clearance of bacteremia. Most recent repeat blood cultures are negative for 24 hours. Patient did have a urine sample sent from the drainage bag which is negative as well and awaiting wound cultures which are pending Will follow-up on repeat labs in a.m. Due to multiple complex medical issues, prognosis is guarded Objective - Vital Signs Vital signs: Vital Signs Temp 98.1 F 03/30/23 13:45 Pulse 74 03/30/23 13:45 Resp 18 03/30/23 13:45 BP 163/75 03/30/23 13:45 Pulse Ox 98 03/30/23 13:45 FiO2 Intake & Output 03/30/23 03/30/23 03/31/23 06:59 18:59 06:59 Other: Voiding Method Toilet Toilet Toilet # Voids 2 5 # Bowel Movements 1 - Labs CBC & Chem 7: 03/30/23 04:28 03/30/23 04:28 Labs: Abnormal Lab Results - Last 24 Hours (Table) 03/29/23 03/30/23 03/30/23 Range/Units 22:15 04:28 04:28 WBC 10.80 H (4.50-10.00) X 10*3/uL RBC 3.16 L (4.10-5.20) X 10*6/uL Hgb 9.5 L (12.0-15.0) d/dL Hct 30.8 L (37.2-46.3) % MCV 97.5 H (80.0-97.0) FL MCHC 30.8 L (32.0-37.0) d/dL RDW 15.4 H (11.5-14.5) % Chloride 110 H (98-107) mmol/L BUN 5 L (7-17) mg/dL Calcium 8.1 L (8.4-10.2) mg/dL AST 55 H (14-36) U/L ALT 80 H (4-34) U/L Alkaline Phosphatase 129 H (38-126) U/L Total Protein 4.8 L (6.3-8.2) g/dL Albumin 2.2 L (3.5-5.0) g/dL Ur Leukocyte Esterase Small H (Negative) Urine Bacteria Rare H (None) /hpf Urine Mucus Rare H (None) /hpf Microbiology - Last 24 Hours (Table) 03/28/23 06:27 Blood Culture - Preliminary Blood 03/27/23 06:44 Blood Culture - Preliminary Blood 03/26/23 15:10 Anaerobic Culture - Preliminary Abdomen 03/26/23 15:10 Gram Stain - Preliminary Aspirate Body Fluid Culture - Preliminary Escherichia coli Non Hemolytic Strep
[2023-03-31] MEDS: SODIUM CHLORIDE 0.9% 1,000 ML IV SCH ×2 (02:23→23:28)
[2023-03-31] MEDS: PIPERACILLIN-TAZOBACTAM 3.375 GM in SODIUM CHLORIDE 0.9% 100 ML IVPB SCH ×3 (06:33→23:24)
[2023-03-31] MEDS: allopurinoL 100 MG TAB PO SCH (08:24)
[2023-03-31] MEDS: METOPROLOL TARTRATE 25 MG TAB PO SCH ×2 (08:24→21:27)
[2023-03-31] MEDS: HEPARIN SODIUM,PORCINE 5,000 UNIT/ML 1 ML VIAL SQ SCH ×3 (08:24→23:24)
[2023-03-31] MEDS: SERTRALINE 100 MG TAB PO SCH (08:24)
[2023-03-31 08:30] LABS: African American GFR (CKD) >90 (>60 ml/min/1.73 sqM); Anion Gap 4 mmol/L; Blood Urea Nitrogen 9 mg/dL (7-17); Calcium 8.3 mg/dL (8.4-10.2); Carbon Dioxide 25 mmol/L (22-30); Chloride 111 mmol/L (98-107); Glucose 94 mg/dL (74-99); Non-African American GFR(CKD) 83 (>60 ml/min/1.73 sqM); Potassium 4.7 mmol/L (3.5-5.1); Sodium 140 mmol/L (137-145)
--- NOTE | 2023-03-31 09:55 | P.GSCN ---
History of Present Illness Consult date: 03/31/23 History of present illness: 77-year-old female in the hospital with abdominal pain. She is found to have diverticulitis with diverticular abscess. Due to the appearance of the drainage there is question whether there could be a colovesical fistula. We're asked see the patient. The patient is interviewed at the bedside. Her history is somewhat limited. She denies problems urinating. She denies pneumaturia, fecaluria or fluid in the urine. She is not having any burning. Her urine does not look consistent with a colovesical fistula at this point in time. The computed tomography scan does not show any air in the bladder. Review of Systems ROS unobtainable: due to mental status Past Medical History Past Medical History: Hyperlipidemia, Hypertension Additional Past Medical History / Comment(s): Psychological hx History of Any Multi-Drug Resistant Organisms: None Reported Past Surgical History: Hysterectomy Additional Past Surgical History / Comment(s): Mastectomy left side Past Anesthesia/Blood Transfusion Reactions: No Reported Reaction Past Psychological History: Anxiety, Bipolar, Panic Disorder Smoking Status: Never smoker Past Alcohol Use History: None Reported Past Drug Use History: None Reported Medications and Allergies Home Medications Medication Instructions Recorded Confirmed Type Pravastatin Sodium [Pravachol] 20 mg PO HS 02/21/20 03/25/23 History lisinopriL 20 mg PO DAILY 02/21/20 03/25/23 History Albuterol Sulfate [Ventolin HFA] 2 puff INHALATION RT-QID PRN 03/25/23 03/25/23 History Metoprolol Tartrate [Lopressor] 25 mg PO BID 03/25/23 03/25/23 History Mirtazapine [Remeron] 45 mg PO HS 03/25/23 03/25/23 History Sertraline [Zoloft] 100 mg PO DAILY 03/25/23 03/25/23 History allopurinoL 100 mg PO DAILY 03/25/23 03/25/23 History risperiDONE [RisperDAL] 1 mg PO HS 03/25/23 03/25/23 History Allergies Allergy/AdvReac Type Severity Reaction Status Date / Time No Known Allergies Allergy Verified 03/25/23 17:04 Surgical - Exam Vital Signs Temp Pulse Resp BP Pulse Ox 98.4 F 114 H 20 116/70 95 03/25/23 17:01 03/25/23 17:01 03/25/23 17:01 03/25/23 17:01 03/25/23 17:01 - General well developed, well nourished, no distress, obese - Eyes normal ocular movement, no icteric - ENT no hearing loss, no congestion - Neck no masses, trachea midline - Respiratory normal respiratory effort, clear to auscultation - Abdomen Abdomen: soft, non tender, no guarding, no rigid, no rebound - Integumentary no rash, no abnormal pigmentation - Neurologic no disoriented, no combative - Psychiatric oriented to time, oriented to person, oriented to place, speech is normal, memory intact Results - Labs 03/30/23 04:28 03/31/23 07:23 Abnormal Lab Results - Last 24 Hours (Table) 03/30/23 03/31/23 Range/Units 04:28 07:23 WBC 10.80 H (4.50-10.00) X 10*3/uL RBC 3.16 L (4.10-5.20) X 10*6/uL Hgb 9.5 L (12.0-15.0) d/dL Hct 30.8 L (37.2-46.3) % MCV 97.5 H (80.0-97.0) FL MCHC 30.8 L (32.0-37.0) d/dL RDW 15.4 H (11.5-14.5) % Chloride 111 H (98-107) mmol/L Calcium 8.3 L (8.4-10.2) mg/dL Microbiology - Last 24 Hours (Table) 03/28/23 06:27 Blood Culture - Preliminary Blood 03/27/23 06:44 Blood Culture - Preliminary Blood Diabetes panel 03/31/23 Range/Units 07:23 Sodium 140 (137-145) mmol/L Potassium 4.7 (3.5-5.1) mmol/L Chloride 111 H (98-107) mmol/L Carbon Dioxide 25 (22-30) mmol/L BUN 9 (7-17) mg/dL Creatinine 0.72 (0.52-1.04) mg/dL Glucose 94 (74-99) mg/dL Calcium 8.3 L (8.4-10.2) mg/dL Calcium panel 03/31/23 Range/Units 07:23 Calcium 8.3 L (8.4-10.2) mg/dL Pituitary panel 03/31/23 Range/Units 07:23 Sodium 140 (137-145) mmol/L Potassium 4.7 (3.5-5.1) mmol/L Chloride 111 H (98-107) mmol/L Carbon Dioxide 25 (22-30) mmol/L BUN 9 (7-17) mg/dL Creatinine 0.72 (0.52-1.04) mg/dL Glucose 94 (74-99) mg/dL Calcium 8.3 L (8.4-10.2) mg/dL Adrenal panel 03/31/23 Range/Units 07:23 Sodium 140 (137-145) mmol/L Potassium 4.7 (3.5-5.1) mmol/L Chloride 111 H (98-107) mmol/L Carbon Dioxide 25 (22-30) mmol/L BUN 9 (7-17) mg/dL Creatinine 0.72 (0.52-1.04) mg/dL Glucose 94 (74-99) mg/dL Calcium 8.3 L (8.4-10.2) mg/dL - Imaging CT scan - abdomen: report reviewed, image reviewed CT scan - chest: image reviewed CT scan - pelvis: report reviewed Assessment and Plan Assessment: Impression: Diverticular abscess. Recommendations: Clinically it does not appear as if she has a colovesical fistula nor does it appear that way radiographically. From a urologic standpoint I do not see any intervention or further diagnostic testing required. When the abscess has cleared if she still shows signs of potential infection cystoscopy could be in order but I do not think at this point in time it will be clinically necessary.
--- NOTE | 2023-03-31 11:37 | XR ---
EXAMINATION TYPE: XR chest 1V portable DATE OF EXAM: 03/31/2023 11:15 AM CLINICAL INDICATION:Female, 77 years old with history of wheezes; [facility] COMPARISON: Chest radiographs from 03/25/2023 TECHNIQUE: XR chest 1V portable Frontal view of the chest. FINDINGS: Lungs/Pleura: Prominent interstitial lung markings are seen scattered throughout the lungs with baron ening of the diaphragm and increased lucency of the lung apices. No evidence of focal consolidation, pneumothorax or pleural effusion. Pulmonary vascularity: Unremarkable. Heart/mediastinum: Cardiomediastinal silhouette is enlarged and stable. Musculoskeletal: No acute osseous pathology. Left axillary/breast surgical clips. IMPRESSION: 1. No acute cardiopulmonary disease process. 2. COPD changes.
--- NOTE | 2023-03-31 12:15 | P.PN ---
Subjective Progress Note Date: 03/31/23 Principal diagnosis: Diverticulitis, abscess, bacteremia Patient is a 77-year-old female with a past medical his significant for hypertension hyperlipidemia anxiety bipolar disorder presenting to the hospital for evaluation of left-sided abdominal pain, patient did have CT of abdominal pelvis concerning for abdominal abscess related to diverticulitis and the patient is status post CT-guided drainage of the fluid collection on 03/27/2023 on today's evaluation that is 03/31/2023, the patient continues to be afebrile, the patient is breathing comfortably , the patient denies chest pain or cough , the patient denies having any nausea or vomiting , patient denies having any abdominal pain and no diarrhea has been reported Patient white count is 10.80 as of 03/30/2023 , creatinine 0.72, local cultures currently growing E. coli and Streptococcus, blood cultures coagulase negative staph Objective - Vital Signs Vital signs: Vital Signs Temp 98.0 F 03/31/23 08:00 Pulse 79 03/31/23 08:00 Resp 19 03/31/23 08:00 BP 143/89 03/31/23 08:00 Pulse Ox 93 L 03/31/23 08:00 FiO2 Intake & Output 03/30/23 03/31/23 03/31/23 18:59 06:59 18:59 Other: Voiding Method Toilet Toilet # Voids 5 3 # Bowel Movements 1 - Exam GENERAL DESCRIPTION: An elderly female up in bed in no distress RESPIRATORY SYSTEM: Unlabored breathing , decreased breath sounds at bases HEART: S1 S2 regular rate and rhythm , ABDOMEN: Soft , no tenderness EXTREMITIES: No edema feet - Labs CBC & Chem 7: 03/30/23 04:28 03/31/23 07:23 Labs: Abnormal Lab Results - Last 24 Hours (Table) 03/29/23 03/30/23 03/31/23 Range/Units 05:59 04:28 07:23 Neutrophils # (Manual) 9.21 H 8.64 H (1.80-7.70) X 10*3/uL Chloride 111 H (98-107) mmol/L Calcium 8.3 L (8.4-10.2) mg/dL Microbiology - Last 24 Hours (Table) 03/28/23 06:27 Blood Culture - Preliminary Blood 03/27/23 06:44 Blood Culture - Preliminary Blood Assessment and Plan (1) Positive blood culture Current Visit: Yes Status: Acute Code(s): R78.81 - BACTEREMIA SNOMED Code(s): 284249953 (2) Diverticulitis of intestine with abscess Current Visit: Yes Status: Acute Code(s): K57.80 - DVTRCLI OF INTEST, PART UNSP, W PERF AND ABSCESS W/O BLEED SNOMED Code(s): 475355979 Plan: 1patient with a complicated history of abdominal pain in this patient CT did shows a fluid collection that has been CT-guided drain which looks mostly urine with a question of possible colovesical fistula as a complication of diverticulitis and will need to cover for the enteric gram-negative both aerobes and anaerobes. 2positive blood culture with coagulase negative staph likely skin contamination, blood cultures has been repeated document clearance of bacteremia 3patient local culture did grew E. coli and strep for the patient is covered with Zosyn , patient has been evaluated by urology recommending no intervention as no clinical suspicious for colovesical fistula, patient will benefit from a short course of IV Zosyn on discharge Dictation was produced using [employer] dictation software. please excuse any grammatical, word or spelling errors. Time with Patient: Less than 30
[2023-03-31] MEDS: ALBUTEROL NEBULIZED 2.5 MG/3 ML INHALATION SCH ×3 (13:19→20:37)
[2023-03-31 13:59] LABS: HCT 33.1 % (37.2-46.3); HGB 10.2 d/dL (12.0-15.0); MCHC 30.8 d/dL (32.0-37.0); MCV 97.4 FL (80.0-97.0); Mean Platelet Volume 11.3 FL (9.5-12.2); NRBC Per 100 WBC 0 X 10*3/uL (0.00-0.01); Platelet Count 305 X 10*3/uL (140-440); RDW 15.5 % (11.5-14.5); WBC 10.31 X 10*3/uL (4.50-10.00)
[2023-03-31 14:14] VITALS: RESP 18
--- NOTE | 2023-03-31 14:54 | P.PN ---
Subjective Progress Note Date: 03/31/23 CHIEF COMPLAINT: Diverticulitis abscess HISTORY OF PRESENT ILLNESS: Patient is status post CT-guided drainage of diverticular abscess. Patient denies any abdominal pain. Denies any nausea vomiting. Tolerating diet. Drain with minimal serous output. Patient evaluated by urology who did not feel that patient had a colovesical fistula. Afebrile. WBC 10.31 PHYSICAL EXAM: VITAL SIGNS: Reviewed. GENERAL: Well-developed in no acute distress. ABDOMEN: Soft. Nondistended. Nontender. Drain in place with minimal serous drainage NEUROLOGIC: Alert and oriented. Cranial nerves II through XII grossly intact. ASSESSMENT: 1. Diverticulitis with abscess status post CT-guided drainage of abscess PLAN: -Patient can be discharged surgical standpoint when medically cleared -Continue regular diet -Antibiotics per infectious disease Physician Waste Chopper note has been reviewed by physician. Signing provider agrees with the documented findings, assessment, and plan of care. Objective - Vital Signs Vital signs: Vital Signs Temp 97.6 F 03/31/23 14:00 Pulse 82 03/31/23 14:00 Resp 18 03/31/23 14:00 BP 120/67 03/31/23 14:00 Pulse Ox 97 03/31/23 14:00 FiO2 Intake & Output 03/30/23 03/31/23 03/31/23 18:59 06:59 18:59 Other: Voiding Method Toilet Toilet Toilet # Voids 5 3 # Bowel Movements 1 - Labs CBC & Chem 7: 03/31/23 07:23 03/31/23 07:23 Labs: Abnormal Lab Results - Last 24 Hours (Table) 03/29/23 03/30/23 03/31/23 Range/Units 05:59 04:28 07:23 WBC (4.50-10.00) X 10*3/uL RBC (4.10-5.20) X 10*6/uL Hgb (12.0-15.0) d/dL Hct (37.2-46.3) % MCV (80.0-97.0) FL MCHC (32.0-37.0) d/dL RDW (11.5-14.5) % Neutrophils # (Manual) 9.21 H 8.64 H (1.80-7.70) X 10*3/uL Chloride 111 H (98-107) mmol/L Calcium 8.3 L (8.4-10.2) mg/dL 03/31/23 Range/Units 07:23 WBC 10.31 H (4.50-10.00) X 10*3/uL RBC 3.40 L (4.10-5.20) X 10*6/uL Hgb 10.2 L (12.0-15.0) d/dL Hct 33.1 L (37.2-46.3) % MCV 97.4 H (80.0-97.0) FL MCHC 30.8 L (32.0-37.0) d/dL RDW 15.5 H (11.5-14.5) % Neutrophils # (Manual) (1.80-7.70) X 10*3/uL Chloride (98-107) mmol/L Calcium (8.4-10.2) mg/dL Microbiology - Last 24 Hours (Table) 03/28/23 06:27 Blood Culture - Preliminary Blood 03/27/23 06:44 Blood Culture - Preliminary Blood
[2023-03-31 15:04] LABS: Basophils # (M) 0 X 10*3/uL (0.00-0.10); Neutrophils % (M) 72 %
[2023-03-31 15:14] LABS: Eosinophils # (M) 0.31 X 10*3/uL (0.04-0.35); Lymphocytes # (M) 1.75 X 10*3/uL (0.90-5.00); Metamyelocytes % 3 % (0-0); Monocytes # (M) 0.31 X 10*3/uL (0.20-1.00); Myelocytes % 2 % (0-0); Neutrophils # (M) 7.42 X 10*3/uL (1.80-7.70); RBC Morphology Normal (Normal)
[2023-03-31] MEDS: risperiDONE 1 MG TAB PO SCH (21:27)
[2023-03-31] MEDS: MIRTAZAPINE 45 MG TABLET PO SCH (21:27)
--- NOTE | 2023-04-01 01:32 | P.PN ---
Subjective Progress Note Date: 03/31/23 Patient is a 77-year-old female with a known history of hypertension, hyperlipidemia, anxiety/bipolar disorder and mentally challenged was brought to ER by her daughter who is her guardian. Patient could not provide much history at this time. According to the family members she has been having abdominal pain mainly left lower quadrant since last Friday, about 3 to 4 days. Denies any fever or chills. On admission patient was tachycardic with heart rate 114. Patient also felt dyspneic. Denies any leg swelling. No dizziness or lightheadedness. Chest x-ray showed no acute cardiopulmonary process/disease. COPD changes. EKG showed sinus tachycardia. Occasional supraventricular premature complexes. CT of the abdomen pelvis showed irregular shaped left lower quadrant fluid collection concerning for abscess. This is in close proximity to the sigmoid colon most pronounced in the left ovary. Unclear if it is a sequela of diverticulitis which is new from 09/25/2022. CTA chest showed no evidence of PE. Low lung volumes with suspected pulmonary vascular congestion and cardiomegaly correlate with serum BNP for congestive heart failure there may be trace bilateral pleural effusions. Laboratory data showed WBC of 18.8 hemoglobin 12.5 and platelets 276 D-dimer level is 4.17 Sodium 136 potassium 3.8 chloride 104 bicarb is 21 BUN 37 creatinine 1.17 Blood sugar is 163 and lactic acid 1.2 liver enzymes showed AST 77 ALT 42 and alk phos 132. Bilirubin 0.8. Amylase and lipase not elevated proBNP 326 and troponin less than 0.012. 03/27/2023 Patient is seen and evaluated in follow-up this morning currently sitting up in the chair with daughter at the bedside. Patient reports she's been having some loose stools and denies any abdominal pain. Patient is status post interventional radiology guided drain for diverticular abscess. On exam the drainage appears to be urine and infectious disease is following and is being sent for urinalysis with culture. There is concerns for a fistula and will discuss further with infectious disease. White count is trending down nicely and is currently 11.36 today, hemoglobin is stable at 10.5. Kidney functions improved with a creatinine of 0.9 and potassium is 3.6. Liver functions are elevated and will hold statin. Other medications have been reviewed. 03/28/2023 Patient seen and evaluated in follow-up today reporting feeling sore in the left outer lower quadrant where the drain is other than that denies abdominal pain. Patient had urinalysis with culture drawn on the drainage which was negative for growth. Blood cultures pending finalization most likely contaminant. Infectious disease is following and patient is maintained on Zosyn and Flagyl. Liver functions are trending up and will continue to monitor. Patient is afebrile and white count is trending down with no reports of nausea or vomiting. Patient denies any further loose stools and reports the passing gas and having bowel movements. 03/29/2023 Patient is currently sitting in the chair comfortably. Awake alert and oriented. No complaint of chest pain or abdominal pain. No shortness of breath. No nausea vomiting or diarrhea. Fluid aspirate grew E. coli and nonhemolytic Streptococcus. Blood cultures and urine culture negative. Patient is maintained on Zosyn. ID and general surgery is on board. Laboratory data showed WBC 11.5 hemoglobin 10.1 and platelets 292 BUN 8 and creatinine 0.68 and liver enzymes showed AST 76 ALT 108 and alk phos 147. Trend ing down slowly. Patient has been afebrile. 03/30/2023 Patient is currently sitting in a chair. No complaints of fever or chills. No nausea vomiting abdominal pain or diarrhea. No cough or sputum production. Fluid cultures growing E. coli and nonhemolytic Streptococcus. Blood cultures showed coagulase-negative staph. Patient is on Zosyn. ID is on board. Leukocytosis trending down and also liver enzymes improving. Abscess drain tube with minimal diet related discharge. Patient has been afebrile. No other acute overnight issues. Laboratory data reviewed. 03/31/2023 Patient is seen and evaluated in follow-up today with general surgery and infectious disease following. Patient is continued on Zosyn and white count is trending down. Surgery has cleared the patient for discharge. Urology evaluated the patient with no plans for or need for surgical intervention at this time and does not feel there is a colovesical fistula and recommend continue on antibiotics. Patient with weakness planning on going to [facility]CF once stabilized and cleared by consultations. Case management following and will discuss further as patient will require IV antibiotics on discharge. Patient is currently afebrile with no reports of chest pain or shortness of breath. Patient tolerating diet with reported nausea or vomiting noted. Review of systems: Constitutional: No reports of fatigue, fever, or chills Cardiovascular: No reports of chest pain or palpitations Respiratory: No reports of shortness of breath or cough GI: No reports of nausea, no vomiting, reports no loose stool today : No reports of dysuria or retention Neurovascular: reports of generalized weakness All medications have been reviewed PHYSICAL EXAMINATION: Patient is sitting up in the chair, awake alert and able to follow simple commands... Obese HEENT: Normocephalic. Neck is supple. Pupils reactive. Nostrils clear. Oral cavity is moist. Neck reveals no JVD, carotid bruits, or thyromegaly. CHEST EXAMINATION: Trachea is central. Symmetrical expansion. Bibasilar diminished sounds. Some faint expiratory wheezing noted CARDIAC: Normal S1, S2 with no gallops. No murmurs ABDOMEN: Soft. Bowel sounds present. Mild Left lower quadrant tenderness noted on palpation and there is a drain noted with clear yellow urine in the bag. No guarding or rigidity.. No organomegaly. No abdominal bruits. Extremities: reveal no edema. No clubbing or cyanosis Neurologically awake, alert,. Mentally challenged. No gross focal deficits noted. Diffusely weak Skin: No rash or skin lesions. Psychiatric: Cooperative. Could not be assessed completely., Musculoskeletal: No joint swelling or deformity. Normal range of motion. Assessment: Left lower quadrant fluid collection/abscess in close proximity to the sigmoid colon. Possible sequelae of diverticulitis. Sepsis secondary to intra-abdominal abscess. Present on admission Bacteremia secondary to above Dyspnea with pulmonary vascular congestion and trace effusion. proBNP not elevated. No leg swelling. CTA negative for PE. Hypovolemic hyponatremia Mild transaminitis, trending down and monitoring closely Hypertension Hyperlipidemia Obesity with a body mass index of 34.8 Anxiety/bipolar disorder and panic disorder Mentally challenged DVT prophylaxis with heparin subcu GI prophylaxis GI prophylaxis Full code Plan: Patient was continued on gentle IV hydration. Continue with antibiotics in the form of Zosyn and infectious disease following. Awaiting cultures to finalize. Urine culture was negative. Repeat cultures are negative. Will discuss further about IV antibiotics on discharge Patient is status post IR CT-guided drainage of this intra-abdominal abscess. The drainage bag appears to have urine which is sent for urinalysis with culture with concerns of fistula. Urology was consulted and evaluated the patient with no concerns of fistula at this time. Patient can follow-up outpatient with urology Repeat labs showing white count is improving kidney functions are stable Patient does have mildly elevated LFTs and trending down PT/OT therapy has evaluated the patient recommending rehab and patient is agreeable. Patient will be going to [facility] on stabilized and discharged. Will discuss further with case management is patient will require IV antibiotics for a short course on discharge. Will follow-up on repeat labs in a.m. Due to multiple complex medical issues, prognosis is guarded Possible discharge in the next 24-48 hours The impression and plan of care has been dictated by Amber Johnson, Nurse Practitioner as directed. Dr. Jared MD I have performed a history and examination and MDM of this patient, discussed the same with the dictator, and agree with the dictator's assessment and plan as written ,documented as a scribe. Based on total visit time, I have performed more than 50% of the visit. Objective - Vital Signs Vital signs: Vital Signs Temp 97.6 F 03/31/23 14:00 Pulse 82 03/31/23 14:00 Resp 18 03/31/23 14:00 BP 120/67 03/31/23 14:00 Pulse Ox 97 03/31/23 14:00 FiO2 Intake & Output 03/30/23 03/31/23 03/31/23 18:59 06:59 18:59 Other: Voiding Method Toilet Toilet Toilet # Voids 5 3 # Bowel Movements 1 - Labs CBC & Chem 7: 03/31/23 07:23 03/31/23 07:23 Labs: Abnormal Lab Results - Last 24 Hours (Table) 03/29/23 03/30/23 03/31/23 Range/Units 05:59 04:28 07:23 WBC (4.50-10.00) X 10*3/uL RBC (4.10-5.20) X 10*6/uL Hgb (12.0-15.0) d/dL Hct (37.2-46.3) % MCV (80.0-97.0) FL MCHC (32.0-37.0) d/dL RDW (11.5-14.5) % Neutrophils # (Manual) 9.21 H 8.64 H (1.80-7.70) X 10*3/uL Chloride 111 H (98-107) mmol/L Calcium 8.3 L (8.4-10.2) mg/dL 03/31/23 Range/Units 07:23 WBC 10.31 H (4.50-10.00) X 10*3/uL RBC 3.40 L (4.10-5.20) X 10*6/uL Hgb 10.2 L (12.0-15.0) d/dL Hct 33.1 L (37.2-46.3) % MCV 97.4 H (80.0-97.0) FL MCHC 30.8 L (32.0-37.0) d/dL RDW 15.5 H (11.5-14.5) % Neutrophils # (Manual) (1.80-7.70) X 10*3/uL Chloride (98-107) mmol/L Calcium (8.4-10.2) mg/dL Microbiology - Last 24 Hours (Table) 03/28/23 06:27 Blood Culture - Preliminary Blood 03/27/23 06:44 Blood Culture - Preliminary Blood
[2023-04-01] MEDS: PIPERACILLIN-TAZOBACTAM 3.375 GM in SODIUM CHLORIDE 0.9% 100 ML IVPB SCH (06:34)
[2023-04-01] MEDS: ALBUTEROL NEBULIZED 2.5 MG/3 ML INHALATION SCH ×2 (07:13→11:03)
[2023-04-01] MEDS: allopurinoL 100 MG TAB PO SCH (08:33)
[2023-04-01] MEDS: HEPARIN SODIUM,PORCINE 5,000 UNIT/ML 1 ML VIAL SQ SCH (08:33)
[2023-04-01] MEDS: METOPROLOL TARTRATE 25 MG TAB PO SCH (08:33)
[2023-04-01] MEDS: SERTRALINE 100 MG TAB PO SCH (08:33)
--- NOTE | 2023-04-01 10:34 | P.PN ---
Subjective Progress Note Date: 04/01/23 CHIEF COMPLAINT: Diverticulitis abscess HISTORY OF PRESENT ILLNESS: Patient is status post CT-guided drainage of diverticular abscess. Patient denies any abdominal pain. Denies any nausea vomiting. Tolerating diet. Drain with minimal serous output. Afebrile. WBC 10.31 PHYSICAL EXAM: VITAL SIGNS: Reviewed. GENERAL: Well-developed in no acute distress. ABDOMEN: Soft. Nondistended. Nontender. Drain in place with minimal serous drainage NEUROLOGIC: Alert and oriented. Cranial nerves II through XII grossly intact. ASSESSMENT: 1. Diverticulitis with abscess status post CT-guided drainage of abscess PLAN: -Patient can be discharged from surgical standpoint with antibiotics -Continue regular diet -Antibiotics per infectious disease Physician Life Science Technician note has been reviewed by physician. Signing provider agrees with the documented findings, assessment, and plan of care. Objective - Vital Signs Vital signs: Vital Signs Temp 98.3 F 04/01/23 07:15 Pulse 83 04/01/23 07:15 Resp 18 04/01/23 07:15 BP 158/70 04/01/23 07:15 Pulse Ox 93 L 04/01/23 07:15 FiO2 Intake & Output 03/31/23 04/01/23 04/01/23 18:59 06:59 18:59 Other: Voiding Method Toilet # Voids 5 1 - Labs CBC & Chem 7: 03/31/23 07:23 03/31/23 07:23 Labs: Abnormal Lab Results - Last 24 Hours (Table) 03/31/23 Range/Units 07:23 WBC 10.31 H (4.50-10.00) X 10*3/uL RBC 3.40 L (4.10-5.20) X 10*6/uL Hgb 10.2 L (12.0-15.0) d/dL Hct 33.1 L (37.2-46.3) % MCV 97.4 H (80.0-97.0) FL MCHC 30.8 L (32.0-37.0) d/dL RDW 15.5 H (11.5-14.5) % Microbiology - Last 24 Hours (Table) 03/26/23 15:10 Gram Stain - Final Aspirate Body Fluid Culture - Final Escherichia coli Non Hemolytic Strep 03/28/23 06:27 Blood Culture - Preliminary Blood
[2023-04-01 11:14] LABS: HCT 34.8 % (37.2-46.3); HGB 10.7 d/dL (12.0-15.0); MCH 29.8 pg (27.0-32.0); MCHC 30.7 d/dL (32.0-37.0); MCV 96.9 FL (80.0-97.0); Mean Platelet Volume 11.2 FL (9.5-12.2); NRBC Per 100 WBC 0 X 10*3/uL (0.00-0.01); Platelet Count 290 X 10*3/uL (140-440); RBC 3.59 X 10*6/uL (4.10-5.20); RDW 15.4 % (11.5-14.5); WBC 10.29 X 10*3/uL (4.50-10.00)
[2023-04-01 11:54] LABS: Basophils # (M) 0 X 10*3/uL (0.00-0.10); Neutrophils % (M) 84 %
[2023-04-01 11:55] LABS: Eosinophils # (M) 0.21 X 10*3/uL (0.04-0.35); Lymphocytes # (M) 0.93 X 10*3/uL (0.90-5.00); Metamyelocytes % 2 % (0-0); Monocytes # (M) 0.31 X 10*3/uL (0.20-1.00); Neutrophils # (M) 8.64 X 10*3/uL (1.80-7.70); RBC Morphology Normal (Normal)
[2023-04-01 11:57] LABS: ALT 74 U/L (8-44); AST 61 U/L (13-35); Albumin 2.9 d/dL (3.8-4.9); Albumin/Globulin Ratio 1.16 Ratio (1.60-3.17); Alkaline Phosphatase 123 U/L (41-126); BUN/Creat Ratio 10.71 Ratio (12.00-20.00); Blood Urea Nitrogen 7.5 mg/dL (9.0-27.0); Calcium 8.3 mg/dL (8.7-10.3); Carbon Dioxide 24.1 mmol/L (21.6-31.8); Chloride 111 mmol/L (96-109); Globulin 2.5 d/dL (1.6-3.3); Glucose 99 mg/dL (70-110); Potassium 4.1 mmol/L (3.5-5.5); Sodium 146 mmol/L (135-145); Total Bilirubin 0.2 mg/dL (0.3-1.2); Total Protein 5.4 d/dL (6.2-8.2)
--- NOTE | 2023-04-01 12:30 | P.PN ---
Subjective Progress Note Date: 04/01/23 Principal diagnosis: Diverticulitis, abscess, bacteremia Patient is a 77-year-old female with a past medical his significant for hypertension hyperlipidemia anxiety bipolar disorder presenting to the hospital for evaluation of left-sided abdominal pain, patient did have CT of abdominal pelvis concerning for abdominal abscess related to diverticulitis and the patient is status post CT-guided drainage of the fluid collection on 03/27/2023 on today's evaluation that is 04/01/2023, the patient denies any fever or any chills, the patient is breathing comfortably , the patient denies chest pain and denies having any cough , the patient denies nausea vomiting, no abdominal pain or diarrhea Patient white count is 10.29, creatinine is 0.7, local cultures currently growing E. coli and Streptococcus, blood cultures coagulase negative staph Objective - Vital Signs Vital signs: Vital Signs Temp 98.3 F 04/01/23 07:15 Pulse 83 04/01/23 07:15 Resp 18 04/01/23 07:15 BP 158/70 04/01/23 07:15 Pulse Ox 93 L 04/01/23 07:15 FiO2 Intake & Output 03/31/23 04/01/23 04/01/23 18:59 06:59 18:59 Other: Voiding Method Toilet Toilet # Voids 5 1 - Exam GENERAL DESCRIPTION: An elderly female up in bed in no distress RESPIRATORY SYSTEM: Unlabored breathing , decreased breath sounds at bases HEART: S1 S2 regular rate and rhythm , ABDOMEN: Soft , no tenderness EXTREMITIES: No edema feet - Labs CBC & Chem 7: 04/01/23 07:26 04/01/23 07:26 Labs: Abnormal Lab Results - Last 24 Hours (Table) 03/31/23 04/01/23 04/01/23 Range/Units 07:23 07:26 07:26 WBC 10.31 H 10.29 H (4.50-10.00) X 10*3/uL RBC 3.40 L 3.59 L (4.10-5.20) X 10*6/uL Hgb 10.2 L 10.7 L (12.0-15.0) d/dL Hct 33.1 L 34.8 L (37.2-46.3) % MCV 97.4 H (80.0-97.0) FL MCHC 30.8 L 30.7 L (32.0-37.0) d/dL RDW 15.5 H 15.4 H (11.5-14.5) % Sodium 146 H (135-145) mmol/L Chloride 111 H (96-109) mmol/L BUN 7.5 L (9.0-27.0) mg/dL BUN/Creatinine Ratio 10.71 L (12.00-20.00) Ratio Calcium 8.3 L (8.7-10.3) mg/dL Total Bilirubin 0.2 L (0.3-1.2) mg/dL AST 61 H (13-35) U/L ALT 74 H (8-44) U/L Total Protein 5.4 L (6.2-8.2) d/dL Albumin 2.9 L (3.8-4.9) d/dL Albumin/Globulin Ratio 1.16 L (1.60-3.17) Ratio Microbiology - Last 24 Hours (Table) 03/26/23 15:10 Gram Stain - Final Aspirate Body Fluid Culture - Final Escherichia coli Non Hemolytic Strep 03/28/23 06:27 Blood Culture - Preliminary Blood Assessment and Plan (1) Positive blood culture Current Visit: Yes Status: Acute Code(s): R78.81 - BACTEREMIA SNOMED Code(s): 659964851 (2) Diverticulitis of intestine with abscess Current Visit: Yes Status: Acute Code(s): K57.80 - DVTRCLI OF INTEST, PART UNSP, W PERF AND ABSCESS W/O BLEED SNOMED Code(s): 977861144 Plan: 1patient with a complicated history of abdominal pain in this patient CT did shows a fluid collection that has been CT-guided drain which looks mostly urine with a question of possible colovesical fistula as a complication of diverticulitis and will need to cover for the enteric gram-negative both aerobes and anaerobes. 2positive blood culture with coagulase negative staph likely skin contamination, blood cultures has been repeated document clearance of bacteremia 3patient local culture did grew E. coli and strep for the patient is covered with Zosyn , patient has been evaluated by urology recommending no intervention as no clinical suspicious for colovesical fistula, 4-plan is for midline and two-week course of IV Zosyn and a positive patient follow-up discussed with CRAPS MANAGER for admitting team Dictation was produced using [employer] dictation software. please excuse any grammatical, word or spelling errors.
[2023-04-01 12:33] VITALS: BMI 34.7
[2023-04-01 14:42] VITALS: BP 136/75; PULSE 75; TEMP 97.8
--- NOTE | 2023-04-01 15:19 | P.DS ---
Providers Date of admission: 03/25/23 21:00 Expected date of discharge: 04/01/23 Attending physician: Jody Coleman Consults: 03/25/23 21:00 Consult Physician Urgent Consulting Provider: Tyler Al Consult Reason/Comments: Diverticulitis with abscess Do you want consulting provider notified?: Yes 03/27/23 09:44 Consult Physician Routine Consulting Provider: Elver Segundo Consult Reason/Comments: diverticulitis with abscess, post IR drainage Do you want consulting provider notified?: Yes 03/31/23 05:51 Consult Physician Urgent Consulting Provider: Simone Reyes Consult Reason/Comments: diverticular abscess, ? concern for colovesicular fistula Do you want consulting provider notified?: Yes Primary care physician: Cookie Gupta Hospital Course: Final diagnosis Left lower quadrant fluid collection/abscess in close proximity to the sigmoid colon. Possible sequelae of diverticulitis. Sepsis secondary to intra-abdominal abscess. Present on admission Bacteremia secondary to above, most recent and repeat blood cultures are negative Dyspnea with pulmonary vascular congestion and trace effusion. proBNP not elevated. No leg swelling. CTA negative for PE. Hypovolemic hyponatremia Mild transaminitis, trending down and monitoring closely Hypertension Hyperlipidemia Obesity with a body mass index of 34.8 Anxiety/bipolar disorder and panic disorder Mentally challenged DVT prophylaxis with heparin subcu GI prophylaxis GI prophylaxis Full code Discharge disposition Patient is being discharged in a stable condition with guarded prognosis to [facility]. Patient will follow-up with Dr. Gupta in the outpatient setting upon discharge. Patient is to continue with IV antibiotics in the form of Zosyn 3 times daily for the next 2 weeks per ID recommendations and close outpatient follow-up with general surgery as scheduled. Patient will continue to drain on discharge. Patient will also need follow-up labs of CBC, CMP, magnesium in the next 2-3 days. Total time taken is greater than 35 minutes. Hospital course This is a 77-year-old female who was recently admitted with abdominal pain of the left lower quadrant had progressively been getting worse. CT abdomen and pelvis showed irregular shaped left lower quadrant fluid collection concerning for abscess and was evaluated by interventional radiology had a drain placed with concerns of colovesical fistula as the drainage appeared to look like urine. Urine cultures were negative and wound culture showing E. coli and nonhemolytic strep. Most recent repeat blood cultures are negative. Patient was maintained on IV Zosyn with antibiotics and infectious disease following and has received a midline and will continue on IV Zosyn 3 times daily for the next 2 weeks. Patient will be discharged with the drain per surgery and close outpatient follow-up with surgery in one week. Recommend repeat labs in the next few days to monitor electrolytes along with sodium levels. Patient has been cleared by consultations. Please refer to consultation notes for further HPI. Currently no reports of chest pain, shortness of breath, or palpitations. Patient is afebrile. No reports of nausea or vomiting and patient is tolerating diet. Patient will be going to [facility] today. Guarded prognosis Physical exam: Gen: This is a 77-year-old female who is awake, alert and oriented 2- 3, well- developed, well-nourished, obese, developmentally delayed HEENT: Head is atraumatic, normocephalic. Pupils equal, round. Sclerae is anicteric. NECK: Supple. No JVD. No lymphadenopathy. No thyromegaly. LUNGS: Clear to auscultation. No wheezes or rhonchi. No intercostal retractions. HEART: S1, S2 are muffled ABDOMEN: Soft. Obese Bowel sounds are present. No masses. No tenderness. Left lower quadrant drainage noted EXTREMITIES: No pedal edema. No calf tenderness. NEUROLOGICAL: Patient is awake, alert and oriented x2-3. Cranial nerves 2 through 12 are grossly intact. diffusely weak Please refer to medication reconciliation sheet for a list of medications. The impression and plan of care has been dictated by Amber Johnson, Nurse Practitioner as directed. Dr. Jared MD I have performed a history and examination and MDM of this patient, discussed the same with the dictator, and agree with the dictator's assessment and plan as written ,documented as a scribe. Based on total visit time, I have performed more than 50% of the visit. Patient Condition at Discharge: Fair Plan - Discharge Summary Discharge Rx Participant: Yes New Discharge Prescriptions: New Heparin Sodium,Porcine (1 ml) [Heparin Sodium] 5,000 unit SQ Q8HR each Albuterol Nebulized [Ventolin Nebulized] 2.5 mg INHALATION RT-QID ml Piperacillin-Tazobactam [Zosyn] 3.375 gm IVPB Q8H 14 Days #42 each Continue Pravastatin Sodium [Pravachol] 20 mg PO HS Metoprolol Tartrate [Lopressor] 25 mg PO BID Mirtazapine [Remeron] 45 mg PO HS Sertraline [Zoloft] 100 mg PO DAILY Albuterol Sulfate [Ventolin HFA] 2 puff INHALATION RT-QID PRN PRN Reason: Shortness Of Breath allopurinoL 100 mg PO DAILY risperiDONE [RisperDAL] 1 mg PO HS Discontinued lisinopriL 20 mg PO DAILY Discharge Medication List Pravastatin Sodium [Pravachol] 20 mg PO HS 02/21/20 [History] Albuterol Sulfate [Ventolin HFA] 2 puff INHALATION RT-QID PRN 03/25/23 [History] Metoprolol Tartrate [Lopressor] 25 mg PO BID 03/25/23 [History] Mirtazapine [Remeron] 45 mg PO HS 03/25/23 [History] Sertraline [Zoloft] 100 mg PO DAILY 03/25/23 [History] allopurinoL 100 mg PO DAILY 03/25/23 [History] risperiDONE [RisperDAL] 1 mg PO HS 03/25/23 [History] Albuterol Nebulized [Ventolin Nebulized] 2.5 mg INHALATION RT-QID ml 04/01/23 [Rx] Heparin Sodium,Porcine (1 ml) [Heparin Sodium] 5,000 unit SQ Q8HR each 04/01/23 [Rx] Piperacillin-Tazobactam [Zosyn] 3.375 gm IVPB Q8H 14 Days #42 each 04/01/23 [Rx] Follow up Appointment(s)/Referral(s): Cookie Gupta MD [Primary Care Provider] - 1-2 days Tyler Al MD [STAFF PHYSICIAN] - 1 Week Activity/Diet/Wound Care/Special Instructions: drain management: dressing change PRN. typically 7-10 days. Radiology nurse at [facility] is [phone]. Dressing change is staysix with a tagaderm over it. Leave dressing in place until follow up with Dr. Al. Patient is going to [facility] Activity as tolerated Follow-up primary care provider on discharge Follow-up with general surgery in one week Continue regular diet Discharge Disposition: TRANSFER TO SNF/ECF
== END 2023-04-01 14:31 | DRG 871 ==
LOC: EC 16:58 → 5NMEDONC 21:00 → 4SSUR 03-26 15:13
PROVIDERS: ADMIT Hospitalist; ATTEND Hospitalist
PROC: 0W9G30Z Drainage of Peritoneal Cavity with Drainage Device, Percutaneous Approach (ICD-10-PCS; principal; 2023-03-26)
PROC: 05HB33Z Insertion of Infusion Device into Right Basilic Vein, Percutaneous Approach (ICD-10-PCS; 2023-04-01 10:55)
DX: A41.51 Sepsis due to Escherichia coli [E. coli] (principal); K65.1 Peritoneal abscess; K57.20 Diverticulitis of large intestine with perforation and abscess without bleeding; N32.1 Vesicointestinal fistula; B95.4 Other streptococcus as the cause of diseases classified elsewhere; E66.9 Obesity, unspecified; Z68.34 Body mass index [BMI] 34.0-34.9, adult; F41.0 Panic disorder [episodic paroxysmal anxiety]; E86.1 Hypovolemia; F31.9 Bipolar disorder, unspecified; F79 Unspecified intellectual disabilities; Z28.311 Partially vaccinated for COVID-19; Z71.3 Dietary counseling and surveillance; E78.5 Hyperlipidemia, unspecified; I10 Essential (primary) hypertension; I49.1 Atrial premature depolarization; J44.9 Chronic obstructive pulmonary disease, unspecified; Z90.12 Acquired absence of left breast and nipple; Z79.899 Other long term (current) drug therapy; Z79.82 Long term (current) use of aspirin
CPT/HCPCS: 36410; 36415; 71045; 71046; 71275; 74177; 75989; 76937; 80048; 80053; 81001; 82150; 83605; 83690; 83880; 84484; 85025; 85379; 85610; 85730; 87040; 87070; 87075; 87077; 87086; 87186; 87205; 93005; 96361; 96365; 96366; 96375; 99285

== ENCOUNTER 2023-05-04 10:47 | Inpatient (IN) | payer MEDICARE ==
[2023-05-04] MEDS ORDERED: SODIUM CHLORIDE 0.9% 1,000 ML IV STA (11:25)
[2023-05-04] MEDS ORDERED: ACTIVATED CHARCOAL-SORBITOL 50 GM/240 ML BOTTLE PO STA (11:26)
[2023-05-04 12:03] LABS: Basophils % (A) 0 %; Eosinophils # (A) 0.1 k/uL (0-0.7); Eosinophils % (A) 1 %; HCT 44.5 % (34.0-46.0); Lymphocytes # (A) 1.1 k/uL (1.0-4.8); Lymphocytes % (A) 10 %; MCH 31.1 pg (25.0-35.0); MCHC 32.8 g/dL (31.0-37.0); Mean Platelet Volume 8.5; Monocytes # (A) 0.5 k/uL (0-1.0); Monocytes % (A) 5 %; Neutrophils # (A) 8.3 k/uL (1.3-7.7); Neutrophils % (A) 83 %; Platelet Count 183 k/uL (150-450); RBC 4.69 m/uL (3.80-5.40); RDW 14.2 % (11.5-15.5)
[2023-05-04 12:07] LABS: HGB 14.6 gm/dL (11.4-16.0)
[2023-05-04 12:15] LABS: Amphetamine Screen,Urine Not Detected (NotDetected); Barbiturate Screen,Urine Not Detected (NotDetected); Benzodiazepines Screen,Urine Not Detected (NotDetected); Cocaine Screen,Urine Not Detected (NotDetected); Methadone Screen, Urine Not Detected (NotDetected); Opiate Screen,Urine Not Detected (NotDetected); Oxycodone Screen, Urine Not Detected (NotDetected); Phencyclidine Screen,Urine Not Detected (NotDetected); Tricyclic Antidepressant,Urine Not Detected (NotDetected); Urn Cannabinoid Scrn Not Detected (NotDetected)
[2023-05-04 12:25] LABS: ALT 41 U/L (4-34); AST 41 U/L (14-36); African American GFR (CKD) 80 (>60 ml/min/1.73 sqM); Albumin 4.2 g/dL (3.5-5.0); Alcohol <10 mg/dL; Alkaline Phosphatase 130 U/L (38-126); Anion Gap 14 mmol/L; Blood Urea Nitrogen 24 mg/dL (7-17); Calcium 10.1 mg/dL (8.4-10.2); Carbon Dioxide 24 mmol/L (22-30); Chloride 103 mmol/L (98-107); Glucose 169 mg/dL (74-99); Non-African American GFR(CKD) 69 (>60 ml/min/1.73 sqM); Potassium 4.3 mmol/L (3.5-5.1); Salicylate <1.0 mg/dL; Sodium 141 mmol/L (137-145); Total Bilirubin 0.4 mg/dL (0.2-1.3); Total Protein 7.3 g/dL (6.3-8.2)
--- NOTE | 2023-05-04 13:00 | ED ---
General Adult HPI - General Chief complaint: Overdose Stated complaint: Overdose Time Seen by Provider: 05/04/23 11:00 Source: patient, RN notes reviewed, old records reviewed Mode of arrival: ambulatory Limitations: no limitations - History of Present Illness Initial comments: This is a 78-year-old female who has a guardian. Patient has a history of s ignificant bipolar. Patient comes in today because she told her daughter that she took 36 lisinopril. She told the voices told her to do that. Patient doesn't really remember having done that and is not very specific as to why she did it. Patient states she just doesn't feel good now but she denies any chest pain difficulty breathing she denies any nausea vomiting she denies any abdominal pain. Patient denies lightheadedness or dizziness. Patient is somewhat mentally challenged and difficult to get an answer from or whether she is suicidal or not but she does state that voices were telling him to take the pills. According to the daughter the count of the pills and the pill bottle was filled just yesterday and 36 pills are missing - Related Data Home Medications Medication Instructions Recorded Confirmed Pravastatin Sodium [Pravachol] 20 mg PO HS 02/21/20 04/21/23 Albuterol Sulfate [Ventolin HFA] 2 puff INHALATION RT-QID PRN 03/25/23 04/21/23 Metoprolol Tartrate [Lopressor] 25 mg PO BID 03/25/23 04/21/23 Mirtazapine [Remeron] 45 mg PO HS 03/25/23 04/21/23 Sertraline [Zoloft] 100 mg PO DAILY 03/25/23 04/21/23 allopurinoL 100 mg PO DAILY 03/25/23 04/21/23 risperiDONE [RisperDAL] 1 mg PO HS 03/25/23 04/21/23 Previous Rx's Medication Instructions Recorded Albuterol Nebulized [Ventolin 2.5 mg INHALATION RT-QID ml 04/01/23 Nebulized] Allergies Allergy/AdvReac Type Severity Reaction Status Date / Time No Known Allergies Allergy Verified 05/04/23 10:59 Review of Systems ROS Statement: Those systems with pertinent positive or pertinent negative responses have been documented in the HPI. ROS Other: All systems not noted in ROS Statement are negative. Past Medical History Past Medical History: Hyperlipidemia, Hypertension Additional Past Medical History / Comment(s): Psychological hx History of Any Multi-Drug Resistant Organisms: None Reported Past Surgical History: Hysterectomy Additional Past Surgical History / Comment(s): Mastectomy left side Past Anesthesia/Blood Transfusion Reactions: No Reported Reaction Past Psychological History: Anxiety, Bipolar, Panic Disorder Smoking Status: Never smoker Past Alcohol Use History: None Reported Past Drug Use History: None Reported General Exam - General Exam Comments Initial Comments: GENERAL: Patient is well-developed and well-nourished. Patient is nontoxic and well- hydrated and is in no acute distress. ENT: Neck is soft and supple. No significant lymphadenopathy is noted. Oropharynx is clear. Moist mucous membranes. Neck has full range of motion without eliciting any pain. EYES: The sclera were anicteric and conjunctiva were pink and moist. Extraocular movements were intact and pupils were equal round and reactive to light. Eyelids were unremarkable. PULMONARY: Unlabored respirations. Good breath sounds bilaterally. No audible rales rhonchi or wheezing was noted. CARDIOVASCULAR: There is a regular rate and rhythm without any murmurs gallops or rubs. ABDOMEN: Soft and nontender with normal bowel sounds. No palpable organomegaly was noted. There is no palpable pulsatile mass. SKIN: Skin is clear with no lesions or rashes and otherwise unremarkable. NEUROLOGIC: Patient is alert and oriented 2. Cranial nerves II through XII are grossly intact. Motor and sensory are also intact. Normal speech, volume and content. Symmetrical smile. MUSCULOSKELETAL: Normal extremities with adequate strength and full range of motion. No lower extremity swelling or edema. No calf tenderness. LYMPHATICS: No significant lymphadenopathy is noted PSYCHIATRIC: Patient states voices told her to take the pills. Limitations: no limitations Course Vital Signs 05/04/23 05/04/23 05/04/23 10:55 11:22 11:27 Temperature 98 F 98 F Pulse Rate 78 78 Pulse Rate [ 89 Translator ] Respiratory 18 20 Rate Blood Pressure 178/95 199/96 O2 Sat by Pulse 98 95 Oximetry 05/04/23 05/04/23 05/04/23 11:44 12:00 13:00 Temperature Pulse Rate 80 78 Pulse Rate [ Translator ] Respiratory 20 20 18 Rate Blood Pressure 189/101 168/78 O2 Sat by Pulse 97 96 Oximetry Medical Decision Making - Medical Decision Making EKG as read by myself EKG shows a sinus rhythm at 81 bpm MT interval 293 QRSs 134 Q-T intervals 386 QTC is 423. Patient's EKG shows no ST segment elevation or depression. Was pt. sent in by a medical professional or institution ([facility] Lucas, [employer], urgent care, hospital, or snf...) When possible be specific @ -No Did you speak to anyone other than the patient for history (EMS, parent, family, police, friend...)? What history was obtained from this source @ -I spoke with the daughters about the patient's condition and they gave most of the history Did you review nursing and triage notes (agree or disagree)? Why? @ -I reviewed and agree with nursing and triage notes Were old charts reviewed (outside hosp., previous admission, EMS record, old EKG, old radiological studies, urgent care reports/EKG's, snf records)? Report findings @ -I reviewed old charts and old lab work on this patient's Differential Diagnosis (chest pain, altered mental status, abdominal pain women, abdominal pain men, vaginal bleeding, weakness, fever, dyspnea, syncope, headache, dizziness, GI bleed, back pain, seizure, CVA, palpatations, mental health, musculoskeletal)? @ -Differential Mental Health Depression, anxiety, bipolar, psychosis, schizophrenia, borderline personality, situational depression, adjustment disorder, behavioral disorder, brain tumor, malingering, substance abuse, encephalopathy, medication reaction, dementia, hypothyroidism, degenerative neurologic disorder, lupus.... This is not meant to be all-inclusive list EKG interpreted by me (3pts min.). @ -As above X-rays interpreted by me (1pt min.). @ -None done CT interpreted by me (1pt min.). @ -None done U/S interpreted by me (1pt. min.). @ -None done What testing was considered but not performed or refused? (CT, X-rays, U/S, labs)? Why? @ -None What meds were considered but not given or refused? Why? @ -None Did you discuss the management of the patient with other professionals (professionals i.e. [facility] Lucas, [employer], lab, RT, psych nurse, social director, health center associate, teacher, licensed loan officer assistant, case technician)? Give summary @ -I spoke with the [facility] hospitalist and they agreed to admit the patient Was smoking cessation discussed for >3mins.? @ -No Was critical care preformed (if so, how long)? @ -No Were there social determinants of health that impacted care today? How? (Homelessness, low income, unemployed, alcoholism, drug addiction, transportation, low edu. Level, literacy, decrease access to med. care, longterm, rehab)? @ -No Was there de-escalation of care discussed even if they declined (Discuss DNR or withdrawal of care, Hospice)? DNR status @ -No What co-morbidities impacted this encounter? (DM, HTN, Smoking, COPD, CAD, Cancer, CVA, ARF, Chemo, Hep., AIDS, mental health diagnosis, sleep apnea, morbid obesity)? @ -None Was patient admitted / discharged? Hospital course, mention meds given and route, prescriptions, significant lab abnormalities, going to OR and other pertinent info. @ -Shows blood pressure remained stable however the patient did state she took 36 lisinopril. So patient will be observed overnight. Undiagnosed new problem with uncertain prognosis? @ -No Drug Therapy requiring intensive monitoring for toxicity (Heparin, Nitro, Insulin, Cardizem)? @ -No Were any procedures done? @ -No Diagnosis/symptom? @ -Overdose Acute, or Chronic, or Acute on Chronic? @ -Acute Uncomplicated (without systemic symptoms) or Complicated (systemic symptoms)? @ -Complicated Side effects of treatment? @ -No Exacerbation, Progression, or Severe Exacerbation? @ -No Poses a threat to life or bodily function? How? (Chest pain, USA, CA, pneumonia, PE, COPD, DKA, ARF, appy, cholecystitis, CVA, Diverticulitis, Homicidal, Suicidal, threat to staff... and all critical care pts) @ -Yes this could lead to hypotension and possible - Lab Data Result diagrams: 05/04/23 11:40 05/04/23 11:40 Lab Results 05/04/23 05/04/23 05/04/23 Range/Units 11:40 11:40 11:40 WBC 10.0 (3.8-10.6) k/uL RBC 4.69 (3.80-5.40) m/uL Hgb 14.6 D (11.4-16.0) gm/dL Hct 44.5 (34.0-46.0) % MCV 95.0 (80.0-100.0) fL MCH 31.1 (25.0-35.0) pg MCHC 32.8 (31.0-37.0) g/dL RDW 14.2 (11.5-15.5) % Plt Count 183 (150-450) k/uL MPV 8.5 Neutrophils % 83 % Lymphocytes % 10 % Monocytes % 5 % Eosinophils % 1 % Basophils % 0 % Neutrophils # 8.3 H (1.3-7.7) k/uL Lymphocytes # 1.1 (1.0-4.8) k/uL Monocytes # 0.5 (0-1.0) k/uL Eosinophils # 0.1 (0-0.7) k/uL Basophils # 0.0 (0-0.2) k/uL Sodium (137-145) mmol/L Potassium (3.5-5.1) mmol/L Chloride (98-107) mmol/L Carbon Dioxide (22-30) mmol/L Anion Gap mmol/L BUN (7-17) mg/dL Creatinine (0.52-1.04) mg/dL Est GFR (CKD-EPI)AfAm (>60 ml/min/1.73 sqM) Est GFR (CKD-EPI)NonAf (>60 ml/min/1.73 sqM) Glucose (74-99) mg/dL Calcium (8.4-10.2) mg/dL Total Bilirubin (0.2-1.3) mg/dL AST (14-36) U/L ALT (4-34) U/L Alkaline Phosphatase (38-126) U/L Total Protein (6.3-8.2) g/dL Albumin (3.5-5.0) g/dL Urine HCG, Qual Not Detected (Not Detectd) Salicylates mg/dL Urine Opiates Screen Not Detected (NotDetected) Ur Oxycodone Screen Not Detected (NotDetected) Urine Methadone Screen Not Detected (NotDetected) Ur Propoxyphene Screen Not Detected (NotDetected) Acetaminophen ug/mL Ur Barbiturates Screen Not Detected (NotDetected) U Tricyclic Antidepress Not Detected (NotDetected) Ur Phencyclidine Scrn Not Detected (NotDetected) Ur Amphetamines Screen Not Detected (NotDetected) U Methamphetamines Scrn Not Detected (NotDetected) U Benzodiazepines Scrn Not Detected (NotDetected) Urine Cocaine Screen Not Detected (NotDetected) U Marijuana (THC) Screen Not Detected (NotDetected) Serum Alcohol mg/dL 05/04/23 Range/Units 11:40 WBC (3.8-10.6) k/uL RBC (3.80-5.40) m/uL Hgb (11.4-16.0) gm/dL Hct (34.0-46.0) % MCV (80.0-100.0) fL MCH (25.0-35.0) pg MCHC (31.0-37.0) g/dL RDW (11.5-15.5) % Plt Count (150-450) k/uL MPV Neutrophils % % Lymphocytes % % Monocytes % % Eosinophils % % Basophils % % Neutrophils # (1.3-7.7) k/uL Lymphocytes # (1.0-4.8) k/uL Monocytes # (0-1.0) k/uL Eosinophils # (0-0.7) k/uL Basophils # (0-0.2) k/uL Sodium 141 (137-145) mmol/L Potassium 4.3 (3.5-5.1) mmol/L Chloride 103 (98-107) mmol/L Carbon Dioxide 24 (22-30) mmol/L Anion Gap 14 mmol/L BUN 24 H (7-17) mg/dL Creatinine 0.83 (0.52-1.04) mg/dL Est GFR (CKD-EPI)AfAm 80 (>60 ml/min/1.73 sqM) Est GFR (CKD-EPI)NonAf 69 (>60 ml/min/1.73 sqM) Glucose 169 H (74-99) mg/dL Calcium 10.1 (8.4-10.2) mg/dL Total Bilirubin 0.4 (0.2-1.3) mg/dL AST 41 H (14-36) U/L ALT 41 H (4-34) U/L Alkaline Phosphatase 130 H (38-126) U/L Total Protein 7.3 (6.3-8.2) g/dL Albumin 4.2 (3.5-5.0) g/dL Urine HCG, Qual (Not Detectd) Salicylates <1.0 mg/dL Urine Opiates Screen (NotDetected) Ur Oxycodone Screen (NotDetected) Urine Methadone Screen (NotDetected) Ur Propoxyphene Screen (NotDetected) Acetaminophen 22.0 ug/mL Ur Barbiturates Screen (NotDetected) U Tricyclic Antidepress (NotDetected) Ur Phencyclidine Scrn (NotDetected) Ur Amphetamines Screen (NotDetected) U Methamphetamines Scrn (NotDetected) U Benzodiazepines Scrn (NotDetected) Urine Cocaine Screen (NotDetected) U Marijuana (THC) Screen (NotDetected) Serum Alcohol <10 mg/dL Disposition Clinical Impression: Overdose, Suicidal intent Disposition: ADMITTED IP TO THIS [facility] Referrals: Cookie Gupta MD [Primary Care Provider] - 1-2 days Time of Disposition: 14:26
[2023-05-04] MEDS ORDERED: SODIUM CHLORIDE 0.9% 1,000 ML IV ONE (14:27)
[2023-05-04] MEDS ORDERED: risperiDONE 1 MG TAB PO SCH (23:00)
[2023-05-04] MEDS: MIRTAZAPINE 15 MG TAB PO SCH (23:32)
[2023-05-05] MEDS ORDERED: ALBUTEROL NEBULIZED 2.5 MG/3 ML INHALATION PRN (08:57)
[2023-05-05] MEDS ORDERED: lisinopriL 20 MG TAB PO SCH (09:00)
[2023-05-05] MEDS ORDERED: SERTRALINE 100 MG TAB PO SCH (09:00)
[2023-05-05] MEDS ORDERED: ACETAMINOPHEN TAB 325 MG TAB PO PRN (09:12)
[2023-05-05] MEDS ORDERED: NALOXONE 0.4 MG/ML 1 ML VIAL IV PRN (09:12)
[2023-05-05] MEDS ORDERED: ONDANSETRON 4 MG/2 ML VIAL IVP PRN (09:12)
[2023-05-05] MEDS: CALCIUM CARBONATE 500 MG CHEWABLE PO SCH (10:33)
[2023-05-05] MEDS: METOPROLOL TARTRATE 25 MG TAB PO SCH ×2 (10:33→20:02)
[2023-05-05] MEDS: ASPIRIN 81 MG PO SCH (10:33)
[2023-05-05] MEDS: allopurinoL 100 MG TAB PO SCH (10:33)
[2023-05-05] MEDS: ALBUTEROL NEBULIZED 2.5 MG/3 ML INHALATION SCH ×3 (12:35→20:48)
--- NOTE | 2023-05-05 13:15 | P.HPIM ---
History of Present Illness H&P Date: 05/05/23 Chief Complaint: Depression suicidal ideation * 78-year-old with past medical history of hypertension, hyperlipidemia anxiety bipolar disorder presents to the emergency department with concern for overdose * Patient told her daughter that she took approximately 36 pills of lisinopril, patient stated that was just told her to do that. Upon evaluation in ED patient did not remember having done this, patient denied any associated symptoms including difficulty in breathing, chest, nausea, vomiting, abdominal pain dizziness or lightheadedness * History is limited secondary to cognitive impairment. Workup initiated in ER included CBC which showed normal WBC count hemoglobin and platelet count * Serum chemistry showed sodium of 141 potassium 4.3 chloride 102. 24 creatinine 0.83 liver profile showed AST of 41 a LT of 41 * Urine drug screen was essentially negative * Patient admitted to medical floor with consultation for psychiatry for evaluation * The daughter at bedside assisted with history taking, daughter patient has been depressed tiny laceration noted on right forearm as well as unsure if it was a Scratch patient tried to hurt herself REVIEW OF SYSTEMS: Depression, suicidal ideation CONSTITUTIONAL: No fever, no malaise, no fatigue. HEENT: No recent visual problems or hearing problems. Denied any sore throat. CARDIOVASCULAR: No chest pain, orthopnea, PND, no palpitations, no syncope. PULMONARY: No shortness of breath, no cough, no hemoptysis. GASTROINTESTINAL: No diarrhea, no nausea, no vomiting, no abdominal pain. NEUROLOGICAL: No headaches, no weakness, no numbness. HEMATOLOGICAL: Denies any bleeding or petechiae. GENITOURINARY: Denies any burning micturition, frequency, or urgency. MUSCULOSKELETAL/RHEUMATOLOGICAL: Denies any joint pain, swelling, or any muscle pain. ENDOCRINE: Denies any polyuria or polydipsia. PHYSICAL EXAMINATION: GENERAL: The patient is alert and oriented x 2 , not in any acute distress. Well developed, well nourished. HEENT: Pupils are round and equally reacting to light. EOMI. CARDIOVASCULAR: S1 and S2 present. No murmurs, rubs, or gallops. PULMONARY: Chest is clear to auscultation, no wheezing or crackles. ABDOMEN: Soft, nontender, nondistended, normoactive bowel sounds. No palpable organomegaly. MUSCULOSKELETAL: No joint swelling or deformity. Right wrist scratch, EXTREMITIES: No cyanosis, clubbing, or pedal edema. NEUROLOGICAL: Gross neurological examination did not reveal any focal deficits. Past Medical History Past Medical History: Hyperlipidemia, Hypertension Additional Past Medical History / Comment(s): . History of Any Multi-Drug Resistant Organisms: None Reported Past Surgical History: Hysterectomy Additional Past Surgical History / Comment(s): Mastectomy left side Past Anesthesia/Blood Transfusion Reactions: No Reported Reaction Smoking Status: Never smoker - Past Family History Mother History Unknown: Yes Family Medical History: Unable to Obtain Father Family Medical History: Unable to Obtain Medications and Allergies Home Medications Medication Instructions Recorded Confirmed Type Pravastatin Sodium [Pravachol] 20 mg PO HS 02/21/20 05/04/23 History Albuterol Sulfate [Ventolin HFA] 2 puff INHALATION RT-QID PRN 03/25/23 05/04/23 History Metoprolol Tartrate [Lopressor] 25 mg PO BID 03/25/23 05/04/23 History Mirtazapine [Remeron] 45 mg PO HS 03/25/23 05/04/23 History Sertraline [Zoloft] 100 mg PO DAILY 03/25/23 05/04/23 History allopurinoL 100 mg PO DAILY 03/25/23 05/04/23 History risperiDONE [RisperDAL] 1 mg PO HS 03/25/23 05/04/23 History Albuterol Nebulized [Ventolin 2.5 mg INHALATION RT-QID ml 04/01/23 05/04/23 Rx Nebulized] Aspirin EC [Ecotrin Low Dose] 81 mg PO DAILY 05/04/23 05/04/23 History Calcium Carbonate [Calcium] 600 mg PO DAILY 05/04/23 05/04/23 History Garlic 100 mg PO DAILY 05/04/23 05/04/23 History [place]-3/Dha/Epa/Fish Oil [Fish Oil 1 cap PO DAILY 05/04/23 05/04/23 History 1,000 mg Softgel] lisinopriL [Zestril] 20 mg PO DAILY 05/04/23 05/04/23 History Allergies Allergy/AdvReac Type Severity Reaction Status Date / Time No Known Allergies Allergy Verified 05/04/23 15:11 Physical Exam Vitals: Vital Signs Temp Pulse Pulse Resp BP BP Pulse Ox 05/05/23 08:00 96.7 F L 106 H 20 158/76 97 05/05/23 03:57 77 18 163/82 95 05/05/23 02:00 85 16 05/04/23 23:58 97.9 F 85 16 161/85 94 L 05/04/23 20:00 97.6 F 89 18 157/75 98 05/04/23 18:36 97.7 F 88 18 173/87 97 05/04/23 18:07 65 16 165/102 98 05/04/23 17:00 86 16 186/102 98 05/04/23 16:00 85 20 177/93 94 L 05/04/23 14:00 87 20 177/99 98 05/04/23 13:00 78 18 168/78 96 05/04/23 12:00 80 20 189/101 97 05/04/23 11:44 20 05/04/23 11:27 89 05/04/23 11:22 98 F 78 20 199/96 95 05/04/23 10:55 98 F 78 18 178/95 98 Intake and Output 05/04/23 05/05/23 05/05/23 22:59 06:59 14:59 Intake Total 10 120 Balance 10 120 Intake: IV 10 Invasive Line 1 10 Oral 120 Other: # Voids 2 2 # Bowel Movements 2 Results CBC & Chem 7: 05/04/23 11:40 05/04/23 11:40 Labs: Abnormal Lab Results - Last 24 Hours (Table) 05/04/23 05/04/23 Range/Units 11:40 11:40 Neutrophils # 8.3 H (1.3-7.7) k/uL BUN 24 H (7-17) mg/dL Glucose 169 H (74-99) mg/dL AST 41 H (14-36) U/L ALT 41 H (4-34) U/L Alkaline Phosphatase 130 H (38-126) U/L Thrombosis Risk Factor Assmnt - Choose All That Apply Any of the Below Risk Factors Present?: Yes Each Factor Represents 1 point: Obesity (BMI >25) Other Risk Factors: Yes Each Risk Factor Represents 3 Points: Age 75 years or older Other congenital or acquired thrombophilia - If yes, enter type in comment: No Thrombosis Risk Factor Assessment Total Risk Factor Score: 4 Thrombosis Risk Factor Assessment Level: Moderate Risk Assessment and Plan Assessment: Assessment and plan * History of depression with suicidal ideation and suicide attempt * Essential hypertension * Hyperlipidemia * Mild transaminitis * Obesity * In regards to suicidal ideation continue to maintain maximum safety precautions psychiatry consulted * In regards to hypertension, continue on metoprolol, lisinopril placed on hold continue to monitor vitals * In regards to hyperlipidemia continue patient on pravastatin * In regards to mild elevation in ALT and AST continue to monitor liver profile * mantain maximum safety precaution
--- NOTE | 2023-05-05 15:06 | P.CN ---
Psychiatric Consult - . Consult date: 05/05/23 Consult:: 05/05/23 13:53 IDENTIFYING DATA: This patient is a 78-year-old female, has a guardian, she has 2 kids, she lives with her daughter and a house. REASON FOR REFERRAL: Psychiatry was consulted for suicide attempt by overdose of pills HISTORY OF PRESENT ILLNESS: The patient presented to the hospital on 05/04 with a history of bipolar disorder. Patient apparently told her daughter that she overdosed on 36 pills of lisinopril. Patient's urine drug scan was negative. Patient has an elevated level of Tylenol at 22.0. Patient was seen today laying in the bed with her daughter at her side who is also her guardian. Patient was agreeable to left guardian/daughter Fenton teletypewriter installer outside and get more information. She states that patient has a severe mental illness and usually presents as "manic". She states that she has been working with [facility] and tried on different medications. She claims that patient sometimes talks about voices however she believes that they're more "internal thoughts". She states that now mainly she has been more depressed and sad for the past week or so. States that she got a hold of her sister's blood pressure medications at home while she was out doing chores and errands. She states that the patient endorsed that as a suicide attempt and "didn't want to live anymore". Patient was seen by teletypewriter installer at the bed. She was fairly concrete however states that she is "not doing so good". She claims that she is feeling depressed and anxious lately. States that she took the pills in a suicide attempt as she wanted to end her life. Claims that her sleep has been poor, appetite has been fair. At this time patient denies any current suicidal or homical ideations, intent or plan. Patient denies any auditory, visual hallucinations and denies any paranoia or delusions. Patients admits to using now recreational drugs or cigarettes. PAST PSYCHIATRIC HISTORY: Patient has a a history of bipolar disorder, intellectual disability. Patient is currently on Remeron, Zoloft, Risperdal. Patient was last psychiatrically admitted to the mental health unit in 2019. Patient apparently follows up at [facility]. Patient denies any history of suicide attempts in the past. Past Medical History: Hyperlipidemia, Hypertension Additional Past Medical History / Comment(s): Psychological hx History of Any Multi-Drug Resistant Organisms: None Reported Past Surgical History: Hysterectomy Additional Past Surgical History / Comment(s): Mastectomy left side Past Anesthesia/Blood Transfusion Reactions: No Reported Reaction Past Psychological History: Anxiety, Bipolar, Panic Disorder Smoking Status: Never smoker Past Alcohol Use History: None Reported Past Drug Use History: None Reported ALLERGIES: as per EMR. CHEMICAL DEPENDENCY HISTORY: as per HPI. FAMILY PSYCHIATRIC/SUBSTANCE USE HISTORY: denies SOCIAL HISTORY: Patient was born and raised in [facility]. Patient apparently finished up until the 10th grade in school and dropped out. Patient is unemployed. Denies any legal history. She has 2 kids, she currently lives with her daughter in the house. Her other daughter is her guardian. MENTAL STATUS EXAM: General Appearance: Patient appears to be have short hair, stated age is alert, pleasant, and attempts to be cooperative. Patient appears to have fair hygiene and grooming wearing hospital gown with poor eye contact. Behavior: Patient is calmly lying in bed without any agitated behavior. Timid Speech: Patient's speech is fluent and nonpressured. [place] Mood/Affect: Patient reports their mood is "depressed and anxious", affect is congruent and constricted Suicidality/Homicidality: Patient denies having any suicidal or homicidal ideation intent or plan. Perceptions: Patient denies any visual hallucinations and denies any auditory hallucinations Though content/process: There is no evidence of any delusional thought content and thought process is linear and goal-directed. [place], poverty of content Memory and concentration: AOX3, grossly intact for the purposes of this session. Can spell "WORLD" backwards Judgment and insight: Chronically limited] IMPRESSIONS: Bipolar disorder, current episode depressed Overdose on medications Suicide attempt PLAN: -At this time patient DOES meet criteria for inpatient psychiatric admission however due to patients age she would be better suited for [facility] admission. -Would recommend the following medication changes/additions: d/c risperdal and replace with Seroquel 50 mg qhs for mood stabilization/insomnia. increase zoloft to 150 mg daily for mood/anxiety. melatonin for sleep. Continue with Remeron as prescribed. -Continue 1:1 sitter for safety -Cannot leave AMA at this time. Patient will need a petition and certification if attempting to leave AMA. -When medically stable, patient is eligible for transfer to a [facility] psych bed when available. -Communicated plan to patient's nurse -Will continue to follow along -Please contact with any questions. 05/05/23 14:58
[2023-05-05] MEDS: MELATONIN 3 MG TABLET PO SCH (20:03)
[2023-05-05] MEDS: QUEtiapine 50 MG TAB PO SCH (20:03)
[2023-05-05] MEDS: MIRTAZAPINE 15 MG TAB PO SCH (20:03)
[2023-05-05] MEDS: PRAVASTATIN SODIUM 20 MG TAB PO SCH (20:03)
[2023-05-05] MEDS ORDERED: risperiDONE 1 MG TAB PO SCH (21:00)
[2023-05-06] MEDS: ALBUTEROL NEBULIZED 2.5 MG/3 ML INHALATION SCH ×4 (07:56→21:18)
[2023-05-06] MEDS: METOPROLOL TARTRATE 25 MG TAB PO SCH ×2 (08:56→20:59)
[2023-05-06] MEDS: ASPIRIN 81 MG PO SCH (08:56)
[2023-05-06] MEDS: allopurinoL 100 MG TAB PO SCH (08:56)
[2023-05-06] MEDS: CALCIUM CARBONATE 500 MG CHEWABLE PO SCH (08:57)
[2023-05-06 09:00] LABS: HCT 42.1 % (34.0-46.0); HGB 13.1 gm/dL (11.4-16.0); Hypochromasia Slight; MCH 30.1 pg (25.0-35.0); MCHC 31.1 g/dL (31.0-37.0); MCV 96.8 fL (80.0-100.0); Mean Platelet Volume 8.9; Platelet Count 177 k/uL (150-450); RBC 4.35 m/uL (3.80-5.40); RDW 14.4 % (11.5-15.5); WBC 7.3 k/uL (3.8-10.6)
[2023-05-06] MEDS ORDERED: SERTRALINE 50 MG TAB PO SCH (09:00)
[2023-05-06 09:15] LABS: ALT 36 U/L (4-34); AST 41 U/L (14-36); African American GFR (CKD) 82 (>60 ml/min/1.73 sqM); Albumin 3.3 g/dL (3.5-5.0); Alkaline Phosphatase 109 U/L (38-126); Anion Gap 9 mmol/L; Blood Urea Nitrogen 17 mg/dL (7-17); Calcium 8.9 mg/dL (8.4-10.2); Carbon Dioxide 23 mmol/L (22-30); Chloride 108 mmol/L (98-107); Glucose 132 mg/dL (74-99); Non-African American GFR(CKD) 71 (>60 ml/min/1.73 sqM); Potassium 4.1 mmol/L (3.5-5.1); Sodium 140 mmol/L (137-145); Total Bilirubin 0.3 mg/dL (0.2-1.3); Total Protein 5.9 g/dL (6.3-8.2)
[2023-05-06 10:36] VITALS: TEMP 96.4
[2023-05-06 11:57] VITALS: RESP 18
--- NOTE | 2023-05-06 11:58 | P.PN ---
Subjective Progress Note Date: 05/06/23 * 78-year-old with past medical history of hypertension, hyperlipidemia anxiety bipolar disorder presents to the emergency department with concern for overdose * Patient told her daughter that she took approximately 36 pills of lisinopril, patient stated that was just told her to do that. Upon evaluation in ED patient did not remember having done this, patient denied any associated symptoms including difficulty in breathing, chest, nausea, vomiting, abdominal pain dizziness or lightheadedness * History is limited secondary to cognitive impairment. Workup initiated in ER included CBC which showed normal WBC count hemoglobin and platelet count * Serum chemistry showed sodium of 141 potassium 4.3 chloride 102. 24 creatinine 0.83 liver profile showed AST of 41 a LT of 41 * Urine drug screen was essentially negative * Patient admitted to medical floor with consultation for psychiatry for evaluation * The daughter at bedside assisted with history taking, daughter patient has been depressed tiny laceration noted on right forearm as well as unsure if it was a Scratch patient tried to hurt herself * 05/06/23: Patient seen and evaluated bedside, patient accompanied with SITTER she is awake and alert on some questions appropriately denies of acute issues denies chest pain shortness of breath abdominal pain dizziness or lightheadedness. Blood work and blood pressure reviewed REVIEW OF SYSTEMS: Depression, suicidal ideation CONSTITUTIONAL: No fever, no malaise, no fatigue. HEENT: No recent visual problems or hearing problems. Denied any sore throat. CARDIOVASCULAR: No chest pain, orthopnea, PND, no palpitations, no syncope. PULMONARY: No shortness of breath, no cough, no hemoptysis. GASTROINTESTINAL: No diarrhea, no nausea, no vomiting, no abdominal pain. NEUROLOGICAL: No headaches, no weakness, no numbness. HEMATOLOGICAL: Denies any bleeding or petechiae. GENITOURINARY: Denies any burning micturition, frequency, or urgency. MUSCULOSKELETAL/RHEUMATOLOGICAL: Denies any joint pain, swelling, or any muscle pain. ENDOCRINE: Denies any polyuria or polydipsia. PHYSICAL EXAMINATION: GENERAL: The patient is alert and oriented x 2 , not in any acute distress. Well developed, well nourished. HEENT: Pupils are round and equally reacting to light. EOMI. CARDIOVASCULAR: S1 and S2 present. No murmurs, rubs, or gallops. PULMONARY: Chest is clear to auscultation, no wheezing or crackles. ABDOMEN: Soft, nontender, nondistended, normoactive bowel sounds. No palpable organomegaly. MUSCULOSKELETAL: No joint swelling or deformity. Right wrist scratch, EXTREMITIES: No cyanosis, clubbing, or pedal edema. NEUROLOGICAL: Gross neurological examination did not reveal any focal deficits. Objective - Vital Signs Vital signs: Vital Signs Temp 96.4 F L 05/06/23 08:40 Pulse 82 05/06/23 11:35 Resp 18 05/06/23 11:35 BP 145/67 05/06/23 11:35 Pulse Ox 98 05/06/23 11:35 FiO2 Intake & Output 05/05/23 05/06/23 05/06/23 18:59 06:59 18:59 Intake Total 1260 118 Balance 1260 118 Intake: Oral 1260 118 Other: # Voids 2 - Labs CBC & Chem 7: 05/06/23 08:21 05/06/23 08:21 Labs: Abnormal Lab Results - Last 24 Hours (Table) 05/06/23 Range/Units 08:21 Chloride 108 H (98-107) mmol/L Glucose 132 H (74-99) mg/dL AST 41 H (14-36) U/L ALT 36 H (4-34) U/L Total Protein 5.9 L (6.3-8.2) g/dL Albumin 3.3 L (3.5-5.0) g/dL Assessment and Plan Assessment: Assessment and plan * History of depression with suicidal ideation and suicide attempt * Essential hypertension * Hyperlipidemia * Mild transaminitis * Obesity * In regards to suicidal ideation continue to maintain maximum safety precautions psychiatry consulted>> medications adjusted by psychiatry * In regards to hypertension, continue on metoprolol, lisinopril placed on hold continue to monitor vitals * In regards to hyperlipidemia continue patient on pravastatin * In regards to mild elevation in ALT and AST continue to monitor liver profile * mantain maximum safety precaution * Potential discharge within the next 24 hours if remains hemodynamically stable
--- NOTE | 2023-05-06 14:30 | P.DS ---
Providers Date of admission: 05/04/23 14:27 Expected date of discharge: 05/06/23 Attending physician: Venancio Velasquez MD Consults: 05/04/23 14:27 Consult Physician Urgent Consulting Provider: Shawn Glasgow Consult Reason/Comments: Suicide attempt Do you want consulting provider notified?: Yes Primary care physician: [facility] Course: 78-year-old with past medical history of hypertension, hyperlipidemia anxiety bipolar disorder presents to the emergency department with concern for overdose * Patient told her daughter that she took approximately 36 pills of lisinopril, patient stated that was just told her to do that. Upon evaluation in ED patient did not remember having done this, patient denied any associated symptoms including difficulty in breathing, chest, nausea, vomiting, abdominal pain dizziness or lightheadedness * History is limited secondary to cognitive impairment. Workup initiated in ER included CBC which showed normal WBC count hemoglobin and platelet count * Serum chemistry showed sodium of 141 potassium 4.3 chloride 102. 24 creatinine 0.83 liver profile showed AST of 41 a LT of 41 * Urine drug screen was essentially negative * Patient admitted to medical floor with consultation for psychiatry for evaluation * The daughter at bedside assisted with history taking, daughter patient has been depressed tiny laceration noted on right forearm as well as unsure if it was a Scratch patient tried to hurt herself * 05/06/23: Patient seen and evaluated bedside, patient accompanied with SITTER she is awake and alert on some questions appropriately denies of acute issues denies chest pain shortness of breath abdominal pain dizziness or lightheadedness. Blood work and blood pressure reviewed. Patient will be discharged to [facility] psychiatry unit. Patient remains hemodynamically stable PHYSICAL EXAMINATION: GENERAL: The patient is alert and oriented x 2 , not in any acute distress. Well developed, well nourished. HEENT: Pupils are round and equally reacting to light. EOMI. CARDIOVASCULAR: S1 and S2 present. No murmurs, rubs, or gallops. PULMONARY: Chest is clear to auscultation, no wheezing or crackles. ABDOMEN: Soft, nontender, nondistended, normoactive bowel sounds. No palpable organomegaly. MUSCULOSKELETAL: No joint swelling or deformity. Right wrist scratch, EXTREMITIES: No cyanosis, clubbing, or pedal edema. NEUROLOGICAL: Gross neurological examination did not reveal any focal deficits. Assessment: Assessment and plan * History of depression with suicidal ideation and suicide attempt * Essential hypertension * Hyperlipidemia * Mild transaminitis * Obesity * In regards to suicidal ideation continue to maintain maximum safety precautions psychiatry consulted>> medications adjusted by psychiatry * In regards to hypertension, continue on metoprolol, * lisinopril placed on hold continue to monitor vitals * In regards to hyperlipidemia continue patient on pravastatin * In regards to mild elevation in ALT and AST continue to monitor liver profile, while at psychiatry hospital * sanchez maximum safety precaution * Discharged to psychiatry hospital remains hemodynamically stable Patient Condition at Discharge: Fair Plan - Discharge Summary Discharge Rx Participant: No New Discharge Prescriptions: New Sertraline [Zoloft] 150 mg PO DAILY tab Melatonin 3 mg PO HS tab QUEtiapine [SEROquel] 50 mg PO HS tab Continue Pravastatin Sodium [Pravachol] 20 mg PO HS Metoprolol Tartrate [Lopressor] 25 mg PO BID Mirtazapine [Remeron] 45 mg PO HS Albuterol Nebulized [Ventolin Nebulized] 2.5 mg INHALATION RT-QID ml Aspirin EC [Ecotrin Low Dose] 81 mg PO DAILY Albuterol Sulfate [Ventolin HFA] 2 puff INHALATION RT-QID PRN PRN Reason: Shortness Of Breath allopurinoL 100 mg PO DAILY [place]-3/Dha/Epa/Fish Oil [Fish Oil 1,000 mg Softgel] 1 cap PO DAILY Calcium Carbonate [Calcium] 600 mg PO DAILY Discontinued Sertraline [Zoloft] 100 mg PO DAILY risperiDONE [RisperDAL] 1 mg PO HS lisinopriL [Zestril] 20 mg PO DAILY Garlic 100 mg PO DAILY Discharge Medication List Pravastatin Sodium [Pravachol] 20 mg PO HS 02/21/20 [History] Albuterol Sulfate [Ventolin HFA] 2 puff INHALATION RT-QID PRN 03/25/23 [History] Metoprolol Tartrate [Lopressor] 25 mg PO BID 03/25/23 [History] Mirtazapine [Remeron] 45 mg PO HS 03/25/23 [History] allopurinoL 100 mg PO DAILY 03/25/23 [History] Albuterol Nebulized [Ventolin Nebulized] 2.5 mg INHALATION RT-QID ml 04/01/23 [Rx] Aspirin EC [Ecotrin Low Dose] 81 mg PO DAILY 05/04/23 [History] Calcium Carbonate [Calcium] 600 mg PO DAILY 05/04/23 [History] [place]-3/Dha/Epa/Fish Oil [Fish Oil 1,000 mg Softgel] 1 cap PO DAILY 05/04/23 [History] Melatonin 3 mg PO HS tab 05/06/23 [Rx] QUEtiapine [SEROquel] 50 mg PO HS tab 05/06/23 [Rx] Sertraline [Zoloft] 150 mg PO DAILY tab 05/06/23 [Rx] Follow up Appointment(s)/Referral(s): Cookie Gupta MD [Primary Care Provider] - 1-2 days Activity/Diet/Wound Care/Special Instructions: [facility] [address] [place] [address]
--- NOTE | 2023-05-06 15:13 | P.PN ---
Progress Note - Text Progress Note Date: 05/06/23 Interval history: Patient was seen today for psychiatric follow-up. Patient's bipolar depression and suicide attempt. she claims that she is still feeling like she is hearing voices telling her what to do. she states that she is still is depressed, anxious at times. claims that she did sleep a bit better last night. She is denying any problems with appetite. claims that her motivation and energy are low. continues to be contrete. denies any si or Hi, denies any VH. MENTAL STATUS EXAM: General Appearance: Patient appears to be have short hair, stated age is alert, pleasant, and attempts to be cooperative. Patient appears to have fair hygiene and grooming wearing hospital gown with poor eye contact. Behavior: Patient is calmly lying in bed without any agitated behavior. concrete. directable. Speech: Patient's speech is fluent and nonpressured. [place] Mood/Affect: Patient reports their mood is "depressed and anxious", affect is congruent and constricted Suicidality/Homicidality: Patient denies having any suicidal or homicidal ideation intent or plan. Perceptions: Patient denies any visual hallucinations and denies any auditory hallucinations Though content/process: There is no evidence of any delusional thought content and thought process is linear and goal-directed. [place], poverty of content Memory and concentration: AOX3, grossly intact for the purposes of this session. Judgment and insight: Chronically limited] IMPRESSIONS: Bipolar disorder, current episode depressed Overdose on medications Suicide attempt PLAN: -At this time patient DOES meet criteria for inpatient psychiatric admission however due to patients age she would be better suited for [facility] admission. -Would recommend the following medication changes/additions: continue Seroquel 50 mg qhs for mood stabilization/insomnia. zoloft 150 mg daily for mood/anxiety. melatonin for sleep. Continue with Remeron as prescribed. -Continue 1:1 sitter for safety until patient is transferred to [facility]. -Cannot leave AMA at this time. Patient will need a petition and certification if attempting to leave AMA. -When medically stable, patient is eligible for transfer to a [facility] bed when available. -Communicated plan to patient's nurse -Please contact with any questions.
[2023-05-06] MEDS: MIRTAZAPINE 15 MG TAB PO SCH (20:58)
[2023-05-06] MEDS: QUEtiapine 50 MG TAB PO SCH (20:59)
[2023-05-06] MEDS: PRAVASTATIN SODIUM 20 MG TAB PO SCH (20:59)
[2023-05-06] MEDS: MELATONIN 3 MG TABLET PO SCH (20:59)
[2023-05-06 21:53] VITALS: BP 148/63; PULSE 83
== END 2023-05-06 22:38 | DRG 918 ==
LOC: EEVIPCON 10:47 → EC 10:47 → 3SCARD 14:27
PROVIDERS: ADMIT Internal Medicine; ATTEND Internal Medicine
DX: T46.4X2A Poisoning by angiotensin-converting-enzyme inhibitors, intentional self-harm, initial encounter (principal); F31.30 Bipolar disorder, current episode depressed, mild or moderate severity, unspecified; E66.9 Obesity, unspecified; Z28.310 Unvaccinated for COVID-19; S51.811A Laceration without foreign body of right forearm, initial encounter; I10 Essential (primary) hypertension; E78.5 Hyperlipidemia, unspecified; G47.00 Insomnia, unspecified; F79 Unspecified intellectual disabilities; F41.0 Panic disorder [episodic paroxysmal anxiety]; R41.89 Other symptoms and signs involving cognitive functions and awareness; R74.01 Elevation of levels of liver transaminase levels; Z68.32 Body mass index [BMI] 32.0-32.9, adult; Z79.82 Long term (current) use of aspirin; Z79.899 Other long term (current) drug therapy; Y92.009 Unspecified place in unspecified non-institutional (private) residence as the place of occurrence of the external cause; Z91.51 Personal history of suicidal behavior
CPT/HCPCS: 36415; 80053; 80143; 80179; 80306; 80320; 81025; 82075; 85025; 85027; 93005; 94640; 96360; 96361; 99285

== ENCOUNTER → 2023-07-22 | Outpatient (CLI) | payer MEDICARE ==
--- NOTE | 2023-07-22 13:31 | MM ---
Reason for Exam: Hx of breast cancer, mastectomy. Last mammogram was performed 1 year(s) and 11 month(s) ago. Patient History: Menarche at age 15. First Full-Term at age 26. Left ovary removed at age 43. Right ovary removed at age 43. Hysterectomy at age 43. Postmenopausal. Other cancer, age 42. Breast cancer, left, age 56. 2012, Excisional Biopsy on the Right side. 10/02/2001, Malignant Mastectomy on the left side. 2001, Implant on the left side. Maternal aunt had breast cancer. Prior Study Comparison: 09/08/2018 Right Diagnostic Mammogram, [facility]. 06/22/2020 Right Diagnostic Mammogram, [facility]. 09/10/2021 Right Diagnostic Mammogram, [facility]. Tissue Density: Right: There are scattered fibroglandular densities. Findings: Analyzed By CAD. Pattern appears stable. Core marker is within the right breast. Scattered benign punctate calcifications are present. No suspicious groups of microcalcifications, spiculated or lobular masses, architectural distortion or other secondary signs of malignancy are mammographically apparent. Overall Assessment: Benign, BI-RAD 2 Management: Screening Mammogram of the right breast in 1 year. A negative mammogram report should not preclude additional follow up of suspicious palpable abnormalities. Patient should continue monthly self breast exam. A clinical breast exam by your physician is recommended on an annual basis and results should be correlated with mammographic findings. Electronically signed and approved by: Shawn Alejo D.O. Radiologis
== END | disposition home or self-care (01) ==
LOC: RADMAMWWP 13:08
PROVIDERS: ATTEND Family Medicine
DX: R92.321 Mammographic fibroglandular density, right breast (principal); Z85.3 Personal history of malignant neoplasm of breast; Z80.3 Family history of malignant neoplasm of breast; Z78.0 Asymptomatic menopausal state; Z98.82 Breast implant status
CPT/HCPCS: 77065; G0279; 77061